=== PATIENT | female | born 1975 | race Caucasian/White ===

== ENCOUNTER 2017-11-16 15:25 | Emergency (ER) | payer MEDICAID, OTHER ==
[~2017-11-16] VITALS: Ht 162.6 cm; Wt 61.2 kg
[~2017-11-16 15:25] MED LIST: CODE1CAP36 PO; CYCL5TAB PO; DRON10CA PO; HYDR-2890 PO; HYDR-757 PO; NAPR-243 PO; TRAM50TA2 PO; ZLP10T PO
[2017-11-16] MEDS ORDERED: fentaNYL INJECTION 100 MCG/2 ML AMP IVP PRN (16:30)
[2017-11-16] MEDS ORDERED: NS IV 1000 ML 1,000 ML IV SCH (16:30)
--- NOTE | 2017-11-16 16:35 | ED Upper Extremity ---
General Chief Complaint: Upper Extremity Stated Complaint: BILAT HAND SWELLING Source: patient, family History of Present Illness Date Seen by Provider: Nov 16, 2017 Time Seen by Provider: 16:30 Initial Comments The patient is a 42-year-old white female. She was sent here from the [facility]. She had arrived there complaining of her left hand swelling and an apparent bite. It was immediately served that both hands were swollen but the right greater than the left and the right exhibited redness warmth and exquisite pain to touch. Her male nursery rn states that she had fallen a few days ago and had complained of wrist pain but not excessively. She is not known to have a fever. The left arm apparently showed a tiny red spot at the distal ulna without surrounding erythema. This may have been a bug bite. I was informed by staff that the she has HIV and hep C and a past history of drug abuse. Onset: yesterday Pain/Injury Location: right wrist, right hand Method of Injury: unknown Allergies and Home Medications Allergies Coded Allergies: No Known Drug Allergies (Unverified , 10/13/12) Home Medications Acet/Butal/Caff/Cod 1 Cap Capsule, 1 EACH PO Q6HR PRN, (Reported) Cyclobenzaprine Hcl 5 Mg Tablet, 1 EACH PO Q8HR PRN PRN for SPASMS Prescribed by: JIM MAHMOOD on 07/05/141754 Dronabinol 10 Mg Capsule, 1 EACH PO BID, (Reported) Elviteg/Cindy/Emtric/Tenofo Ala 1 Each Tablet, 1 PO DAILY, (Reported) Naproxen 500 Mg Tablet, 1 EACH PO TID PRN for PAIN FOR PAIN Prescribed by: JIM MAHMOOD on 07/05/141754 Tramadol Hcl 50 Mg Tablet, 50 MG PO PRN, (Reported) Zolpidem Tartrate 10 Mg Tab, 10 MG PO HS, (Reported) Patient Home Medication List Home Medication List Reviewed: Yes Constitutional: see HPI (pain swelling and redness of right hand) EENTM: no symptoms reported Respiratory: no symptoms reported Cardiovascular: no symptoms reported Musculoskeletal: no symptoms reported Skin: see HPI Psychiatric/Neurological: No Symptoms Reported Past Httmpwd-Bcuxlc-Lbumkr Hx Patient Social History Recent Foreign Travel: No Contact w/Someone Who Travel: No Immunizations Up To Date Tetanus Booster (TDap): Less than 5yrs Date of Influenza Vaccine: Jul 02, 2013 Neurological Neurological Disorders: Headaches /Migraines Psychosocial Behavioral Health Disorders: Anxiety Physical Exam Vital Signs Vital Signs - First Documented 11/16/17 15:35 Temp 98.3 Pulse 70 Resp 16 B/P (MAP) 129/75 (93) Pulse Ox 98 Capillary Refill : General Appearance: moderate distress (out of proportion to the findings) Neck: full range of motion Cardiovascular: normal peripheral pulses, regular rate, rhythm, no edema, no gallop, no JVD, no murmur Respiratory: chest non-tender, lungs clear, normal breath sounds, no respiratory distress, no accessory muscle use Gastrointestinal: normal bowel sounds Skin: tattoos/piercings (heavily tattooed) Lymphatic: no adenopathy (the dorsum of the right hand was red. There was 2+ swelling. It was slightly warm. She complained exquisitely and bitterly of pain to light touch over the dorsum. No lymphatic rays were noted going up the arm) Comments There was 2+ swelling to the dorsum of the right hand. It was red and slightly warm to the touch. The patient complained of exquisite pain to the light touch. No lymphatic rays were noted extending up the arm. Progress/Results/Core Measures Results/Orders Lab Results Laboratory Tests Test 11/16/17 16:40 Range/Units White Blood Count 8.8 4.3-11.0 10^3/uL Red Blood Count 3.98 L 4.35-5.85 10^6/uL Hemoglobin 12.3 11.5-16.0 G/DL Hematocrit 34 L 35-52 % Mean Corpuscular Volume 86 80-99 FL Mean Corpuscular Hemoglobin 31 25-34 PG Mean Corpuscular Hemoglobin Concent 36 32-36 G/DL Red Cell Distribution Width 12.9 10.0-14.5 % Platelet Count 218 130-400 10^3/uL Mean Platelet Volume 9.1 7.4-10.4 FL Neutrophils (%) (Auto) 65 42-75 % Lymphocytes (%) (Auto) 21 12-44 % Monocytes (%) (Auto) 12 0-12 % Eosinophils (%) (Auto) 1 0-10 % Basophils (%) (Auto) 1 0-10 % Neutrophils # (Auto) 5.7 1.8-7.8 X 10^3 Lymphocytes # (Auto) 1.9 1.0-4.0 X 10^3 Monocytes # (Auto) 1.1 H 0.0-1.0 X 10^3 Eosinophils # (Auto) 0.1 0.0-0.3 10^3/uL Basophils # (Auto) 0.0 0.0-0.1 10^3/uL Sodium Level 133 L 135-145 MMOL/L Potassium Level 4.0 3.6-5.0 MMOL/L Chloride Level 102 98-107 MMOL/L Carbon Dioxide Level 21 21-32 MMOL/L Anion Gap 10 5-14 MMOL/L Blood Urea Nitrogen 13 7-18 MG/DL Creatinine 0.77 0.60-1.30 MG/DL Estimat Glomerular Filtration Rate > 60 BUN/Creatinine Ratio 17 Glucose Level 93 70-105 MG/DL Calcium Level 9.2 8.5-10.1 MG/DL Total Bilirubin 0.5 0.1-1.0 MG/DL Aspartate Amino Transf (AST/SGOT) 31 5-34 U/L Alanine Aminotransferase (ALT/SGPT) 33 0-55 U/L Alkaline Phosphatase 57 40-136 U/L Total Protein 7.7 6.4-8.2 GM/DL Albumin 4.2 3.2-4.5 GM/DL My Orders Orders - PURA ZIEGLER MD Cbc With Automated Diff (11/16/17 16:03) Comprehensive Metabolic Panel (11/16/17 16:03) Drug Screen Stat (Urine) (11/16/17 16:03) Hand, Right, 3 Views (11/16/17 16:26) Ns Iv 1000 Ml (Sodium Chloride 0.9%) (11/16/17 16:30) Fentanyl Injection (Sublimaze Injection (11/16/17 16:30) Medications Given in ED Current Medications Medications Dose Ordered Sig/Naomi Route Start Time Stop Time Status Last Admin Dose Admin Fentanyl Citrate 100 mcg Q1H PRN IVP 11/16/17 16:30 11/16/17 16:47 100 MCG Vital Signs/I&O Vital Sign - Last 12Hours 11/16/17 11/16/17 15:35 16:47 Temp 98.3 98.3 Pulse 70 Resp 16 B/P (MAP) 129/75 (93) Pulse Ox 98 Departure Impression Impression: Primary Impression: cellulitis right hand Disposition: ADMITTED INPATIENT Condition: Stable/Unchanged Admissions Decision to Admit Reason: Admit from ER (General) Decision to Admit/Date: Nov 16, 2017 Time/Decision to Admit Time: 17:48 Departure-Patient Inst. Referrals: [facility] (PCP/Family) Primary Care Physician PURA ZIEGLER MD Nov 16, 2017 16:35
[2017-11-16 16:48] LABS: BASOPHILS % (AUTO) 1 % (0-10); EOSINOPHILS # (AUTO) 0.1 10^3/uL (0.0-0.3); EOSINOPHILS % (AUTO) 1 % (0-10); HEMATOCRIT 34 % (35-52); HEMOGLOBIN 12.3 G/DL (11.5-16.0); LYMPHOCYTES # (AUTO) 1.9 X 10^3 (1.0-4.0); LYMPHOCYTES % (AUTO) 21 % (12-44); MEAN CORPUSCULAR HEMOGLOBIN 31 PG (25-34); MEAN CORPUSCULAR HGB CONC 36 G/DL (32-36); MEAN CORPUSCULAR VOLUME 86 FL (80-99); MEAN PLATELET VOLUME 9.1 FL (7.4-10.4); MONOCYTES # (AUTO) 1.1 X 10^3 (0.0-1.0); MONOCYTES % (AUTO) 12 % (0-12); NEUTROPHILS # (AUTO) 5.7 X 10^3 (1.8-7.8); NEUTROPHILS % (AUTO) 65 % (42-75); PLATELET COUNT 218 10^3/uL (130-400); RED BLOOD COUNT 3.98 10^6/uL (4.35-5.85); RED CELL DISTRIBUTION WIDTH 12.9 % (10.0-14.5); WHITE BLOOD COUNT 8.8 10^3/uL (4.3-11.0)
[2017-11-16 17:07] LABS: ALANINE AMINOTRANSFERASE 33 U/L (0-55); ALBUMIN 4.2 GM/DL (3.2-4.5); ALKALINE PHOSPHATASE 57 U/L (40-136); BILIRUBIN,TOTAL 0.5 MG/DL (0.1-1.0); BUN/CREATININE RATIO 17; CALCIUM 9.2 MG/DL (8.5-10.1); CARBON DIOXIDE 21 MMOL/L (21-32); CHLORIDE 102 MMOL/L (98-107); CREATININE SERUM 0.77 MG/DL (0.60-1.30); GFR ESTIMATED > 60; GLUCOSE 93 MG/DL (70-105); SODIUM 133 MMOL/L (135-145); TOTAL PROTEIN 7.7 GM/DL (6.4-8.2)
[2017-11-16] MEDS ORDERED: ELVI1TAB3 PO (17:22)
--- NOTE | 2017-11-16 17:34 | Diagnostic Imaging Report ---
PATIENT HISTORY: Right hand swelling for two days. No known trauma. TECHNIQUE: Three views of the right hand. COMPARISON: None. FINDINGS: No acute fracture or dislocation is seen in the right hand. Alignment appears normal. The joint spaces are preserved. No cortical erosions are seen. There is mild soft tissue edema about the right wrist. No soft tissue gas or radiopaque foreign body is seen. IMPRESSION: No acute osseous abnormality or soft tissue gas is seen in the right hand. Dictated by: Dictated on workstation # [id number]
[2017-11-16] MEDS ORDERED: VANCOMYCIN 1000 MG/VIAL ONE (17:59)
[2017-11-16] MEDS ORDERED: VANCOMYCIN INJECTION 0.1 MG in NS (IVPB) 250 ML IV SCH (18:00)
[2017-11-16] MEDS ORDERED: PIPERACILLIN SODIUM/TAZOBACTAM 4.5 GM in NS (IVPB) 100 ML IV SCH (18:00)
[2017-11-16 18:10] VITALS: BP 122/70
== END 2017-11-16 18:10 | disposition left against medical advice (07) ==
LOC: EDUNIT# 15:25 → ER 15:26
DX: L03.113 Cellulitis of right upper limb (principal); G43.909 Migraine, unspecified, not intractable, without status migrainosus; F41.9 Anxiety disorder, unspecified; B19.20 Unspecified viral hepatitis C without hepatic coma; Z21 Asymptomatic human immunodeficiency virus [HIV] infection status
CPT/HCPCS: 36415; 73130; 80053; 85025; 96361; 96374

== ENCOUNTER 2017-11-19 22:56 | Inpatient (IN) | payer MEDICAID ==
[~2017-11-19] VITALS: Ht 162.6 cm; Wt 64.2 kg
[~2017-11-19 22:56] MED LIST changes: +ELVI1TAB3 PO
--- OUTSIDE RECORDS SUMMARY | 2017-11-19 23:02 | XMS REPORT ---
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 Active 473248097 Problem Generalized anxiety disorder F41.1 Active 73366419 Problem Low back pain M54.5 Active 530874881 Problem Asymptomatic human immunodeficiency virus (HIV) infection status Z21 Active 01052236 Problem GERD (gastroesophageal reflux disease) K21.9 Active 229941983 ALLERGIES No Known Allergies SOCIAL HISTORY Never Assessed PLAN OF CARE Activity Details Follow Up 10/03/16, prn Reason: Pending Test Human Immunodeficiency Virus (HIV-1), Quantitative, Real-time PCR (graph) 92326 Pending Test Metabolic Panel (14), Comprehensive (CMP) 17520 Pending Test CD4/CD8 Ratio Profile 83545 VITAL SIGNS Height 64 in 2017-07-04 Weight 127.5 lbs 2017-07-04 Temperature 96.7 degrees Fahrenheit 2017-07-04 Heart Rate 95 /min 2017-07-04 Respiratory Rate 18 /min 2017-07-04 Oximetry 99 % 2017-07-04 BMI 21.88 kg/m2 2017-07-04 Blood pressure systolic 112 mm Hg 2017-07-04 Blood pressure diastolic 82 mm Hg 2017-07-04 MEDICATIONS Medication Instructions Dosage Frequency Start Date End Date Duration Status Genvoya 150 mg/150 mg/200/mg/10 mg Oral Once a day 1 tablet 24h December, 30 days Active Lexapro 10 MG Orally Once a day 1 tablet 24h Aug, 30 day(s) Active Citalopram Hydrobromide 20 MG Orally Once a day 1 tablet 24h Jul, 30 day(s) Active Imitrex 100 MG Oral 1 (one) Tablet daily prn, max 2/day 1 tablet as needed one time Aug, 30 days Active Motrin 800 MG Oral 1 tid Aug, 0 Active Qoofehstpt-XMBW-Kukanzrl 50-325-40 MG TAKE ONE TABLET BY MOUTH ONCE DAILY NEEDED ; MAY REPEAT ONE TIME IN 4 HOURS 30 Active Zolpidem Tartrate 10 MG Orally at bedtime 1 tablet Nov, 30 Active Multivitamins Oral 1 (one) QD Sep, 0 Active Tramadol HCl 50 Orally every 6 hrs 1 tablet as needed 6h 30 days Active Remeron 30 MG Oral Once a day 1 tablet before bedtime in the evening 24h Sep, 30 days Active Marinol 10 MG Orally Twice a day 1 capsule 12h 14 Aug, 2012 30 Active RESULTS No Results PROCEDURES Procedure Date Ordered Result Body Site T CELL, ABSOLUTE COUNT/RATIO Jul 04, 2017 COMPREHEN METABOLIC PANEL Jul 04, 2017 IMMUNIZATION ADMIN Jul 04, 2017 HIV-1, DNA, QUANT Jul 04, 2017 Billed by outside source Jul 04, 2017 FLU VAC NO PRSV 4 OJRGE A 3 YRS+ Jul 04, 2017 IMMUNIZATIONS Vaccine Route Administration Date Status Influenza Split 3 yrs > (QUAD) IM Intramuscular Jul 04, 2017 Administered MEDICAL (GENERAL) HISTORY Type Description Date Medical History Amphetamine or related acting sympathomimetic abuse, episodic use ; Medical History Backache, unspecified (724.5) ; Medical History Nondependent tobacco use disorder , (Desc:Tobacco use disorder ) ; Medical History Acute bronchitis (Inactive) Medical History Acute upper respiratory infections of other multiple sites ( Inactive) Medical History Rash and other nonspecific skin eruption (Inactive)
--- OUTSIDE RECORDS SUMMARY | 2017-11-19 23:02 | XMS REPORT ---
Author Author GANESH LOTT [facility] Address [address] [place] [address] Care Team Providers Care Fence Gate Assembler Name Role Phone GANESH LOTT Unavailable PROBLEMS Type Condition ICD9-CM Code RXR30-AD Code Onset Dates Condition Status SNOMED Code Problem Asymptomatic human immunodeficiency virus [HIV] infection status Z21 Active 20586726 Problem Mood disorder F39 Active 01398482 Problem Encounter for long-term (current) use of other medications V58.69 Active 824363572 Problem Screening examination for venereal disease V74.5 Active 057314327 Problem Anxiety F41.9 Active 13121322 Problem Asymptomatic human immunodeficiency virus (HIV) infection status V08 Active 46579160 ALLERGIES No Information SOCIAL HISTORY Never Assessed PLAN OF CARE VITAL SIGNS MEDICATIONS Medication Instructions Dosage Frequency Start Date End Date Duration Status Colace 100 MG Orally Once a day 1 capsule as needed 24h Oct, Nov, 30 day(s) Active RESULTS No Results PROCEDURES No Known procedures IMMUNIZATIONS No Known Immunizations
--- OUTSIDE RECORDS SUMMARY | 2017-11-19 23:02 | XMS REPORT ---
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 Z79.891 Active 521931218 Problem Generalized anxiety disorder F41.1 Active 54824797 Problem Low back pain M54.5 Active 449676461 Problem Asymptomatic human immunodeficiency virus (HIV) infection status Z21 Active 13799784 Problem GERD (gastroesophageal reflux disease) K21.9 Active 467767979 ALLERGIES No Information ENCOUNTERS Encounter Location Date Diagnosis [address] [address] Oct, Asymptomatic human immunodeficiency virus (HIV) infection status Z21 [address] [address] Jul, [address] [phone] Jul, Asymptomatic human immunodeficiency virus (HIV) infection status Z21 ; Influenza vaccine needed Z23 ; Moderate episode of recurrent major depressive disorder F33.1 and Wasting syndrome R64 [facility] [address] [place] [phone] Aug, Asymptomatic human immunodeficiency virus (HIV) infection status Z21 ; senior living current use of opiate analgesic Z79.891 ; Generalized anxiety disorder F41.1 ; Low back pain M54.5 ; GERD (gastroesophageal reflux disease) K21.9 and Nicotine dependence, cigarettes, uncomplicated F17.[address] [id number] December, Asymptomatic human immunodeficiency virus (HIV) infection status Z21 ; Low back pain M54.5 ; Smoker F17.200 ; Primary insomnia F51.01 ; Migraine, unspecified, not intractable, without status migrainosus G43.909 and Generalized anxiety disorder F41.1 [facility] [address] [place] [address] Oct, [address] [id number] Sep, Asymptomatic human immunodeficiency virus [HIV] infection status Z21 ; Smoker F17.200 ; GERD (gastroesophageal reflux disease) K21.9 ; Low back pain M54.5 ; Migraine, unspecified, not intractable, without status migrainosus G43.909 and Generalized anxiety disorder F41.[address] [phone] Jun, Needs flu shot Z23 ; Asymptomatic human immunodeficiency virus [HIV] infection status Z21 and Major depressive disorder , single episode, unspecified F32.[address] [id number] Mar, Asymptomatic human immunodeficiency virus (HIV) infection status V08 and Chronic prescription opiate use V58.69 [facility] [address] [phone] Jan, [address] [phone] Sep, Asymptomatic human immunodeficiency virus (HIV) infection status V08 ; Chronic prescription opiate use V58.69 and Headache 784.0 [facility] [address] [place] [address] Sep, Migraine, unspecified without mention of intractable migraine without mention of status migrainosus 346.90 and Insomnia, unspecified [address] [id number] Jun, Human immunodeficiency virus (HIV) disease 042 ; Flu vaccine need V04.81 and Need for pneumococcal vaccination V03.82 [facility] [id number] [place], [place] [phone] May, [facility] [address] [phone] Apr, [facility] [address] [facility] [address] [place], [place] [phone] Apr, [facility] [address] [facility] [address] [place], [place] [phone] December, [facility] [address] [facility] [place] [address] Sep, [facility] [address] [facility] [place] [address] Jul, [facility] [address] [facility] [place] [address] Jun, [facility] [address] [facility] [place] [address] Nov, [facility] [address] [facility] [place] [address] Sep, [facility] [address] [facility] [place] [address] Aug, [facility] [address] [facility] [place] [address] December, [facility] [address] [facility] [place] [address] Sep, IMMUNIZATIONS No Known Immunizations SOCIAL HISTORY Never Assessed REASON FOR VISIT med refill PLAN OF CARE VITAL SIGNS MEDICATIONS Medication Instructions Dosage Frequency Start Date End Date Duration Status Genvoya 150 mg/150 mg/200/mg/10 mg Oral Once a day 1 tablet 24h December, 30 days Active RESULTS No Results PROCEDURES No Known procedures INSTRUCTIONS MEDICATIONS ADMINISTERED No Known Medications MEDICAL (GENERAL) HISTORY Type Description Date Medical [...]
--- OUTSIDE RECORDS SUMMARY | 2017-11-19 23:02 | XMS REPORT ---
Author Meg Sena [facility] e[employer] Address Unknown Phone Unavailable Care Team Providers Care Date Puller Name Role Phone Meg Casas CP Unavailable Allergies, Adverse Reactions, Alerts Substance Reaction Event Type N.K.D.A. Info Not Available Non Drug Allergy Problems Problem Type Condition Code Onset Dates Condition Status Assessment Chronic prescription opiate use V58.69 Active Assessment Asymptomatic human immunodeficiency virus (HIV) infection status V08 Active Medications Medication Code System Code Instructions Start Date End Date Status Dosage Imitrex [facility] [address]-45 100 MG Oral 1 (one) Tablet daily prn, max 2/day Aug 06, 2013 not defined Zolpidem Tartrate [facility] [address]-65 10 MG Orally at bedtime December 08, 2012 1 tablet Tramadol HCl [facility] [address]-23 50 MG Oral 1 four times daily, as needed Oct 21, 2013 1 tablet Multivitamins [facility] [address] 1 Oral 1 (one) QD Sep 20, 2008 qd Marinol [facility] [address]-57 10 MG Oral 1 BID Aug 14, 2012 not defined Imitrex [facility] [address]-64 100 MG Oral 1 (one) Tablet daily prn, max 2/day Aug 06, 2013 1 tablet as needed one time Atripla [facility] [address]-69 600-200-300 MG Oral 1 (one) at bedtime February 10, 2014 1 tablet on an empty stomach Atripla [facility] [address]-37 600-200-300 MG Oral 1 (one) at bedtime February 10, 2014 not defined Klwnsmvucj-GQXB-Kjfsrwss [facility] [address]-63 50-325-40 MG Orally at onset of headace. May repeat in 4hrs if needed Sep 26, 2014 1 tablet as needed Remeron [facility] [address]-91 30 MG Oral 1 qhs Sep 20, 2013 not defined Remeron [facility] [address]-04 30 MG Oral 1 qhs Sep 20, 2013 1 tablet before bedtime in the evening Lotrisone [facility] [address]-27 1-0.05 % External 1 apply to affected areas BID Aug 17, 2010 not defined Multivitamins [facility] [address] Oral 1 (one) QD Sep 20, 2008 not defined Motrin [facility] [address]-56 800 MG Oral 1 tid Aug 12, 2008 not defined Procedures Procedure Coding System Code Date HIV-1, DNA, QUANT CPT-4 43098 March 10, 2015 COMPREHEN METABOLIC PANEL CPT-4 86765 March 10, 2015 T CELL, ABSOLUTE COUNT/RATIO CPT-4 12096 March 10, 2015 VENIPUNCT, ROUTINE* CPT-4 77298 March 10, 2015 Office Visit, Est Pt., Level 3 CPT-4 03941 March 10, 2015 Vital Signs Date/Time: March 10, 2015 Temperature 97.8 F Weight 127.4 lbs Height 64 in Respiratory Rate 16 /min Cardiac Monitoring Heart Rate 80 /min Blood Pressure Diastolic 62 mm Hg Blood Pressure Systolic 100 mm Hg BMI 21.87 Index Results No Known Results Summary Purpose eClinicalWorks Submission
--- OUTSIDE RECORDS SUMMARY | 2017-11-19 23:02 | XMS REPORT ---
Author Debra Lucia Organization [employer] Address Unknown Phone Unavailable Care Team Providers Care Sheet Roller Operator Name Role Phone Debra Hooper CP Unavailable Allergies No Known Allergies Problems Problem Type Condition ICD-9 Code Onset Dates Condition Status Problem Generalized anxiety disorder 300.02 Active Problem Routine general medical examination at health care facility V70.0 Inactive Problem Other, mixed, or unspecified nondependent drug abuse, 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.90 Inactive Problem Migraine, unspecified without mention of intractable migraine without mention of status migrainosus 346.90 Active Problem Other malaise and fatigue 780.79 Inactive Problem Loss of weight 783.21 Inactive Problem Routine gynecological examination V72.31 Inactive Problem Unspecified dental caries 521.00 Inactive Problem Insomnia, unspecified 780.52 Inactive Problem Unspecified vaginitis and vulvovaginitis 616.10 Inactive Problem Need for prophylactic vaccination and inoculation, Influenza V04.81 Inactive Problem Acute upper respiratory infections of other multiple sites 465.8 Inactive Problem Chronic periodontitis, generalized 523.42 Inactive Problem Asymptomatic human immunodeficiency virus (HIV) infection status V08 Active Problem terminal supervisor (current) use of opiate analgesic V58.69 Inactive Problem Depressive disorder, not elsewhere classified 311 Active Problem Lumbago 724.2 Active Problem Need for prophylactic vaccination and inoculation against viral hepatitis V05.3 Inactive Problem Rash and other nonspecific skin eruption 782.1 Inactive Problem Screening examination for venereal disease V74.5 Inactive Problem Screening examination for pulmonary tuberculosis V74.1 Inactive Problem Acute bronchitis 466.0 Inactive Problem Persistent disorder of initiating or maintaining sleep 307.42 Active Problem Anxiety state, unspecified 300.00 Inactive Problem Nondependent tobacco use disorder 305.1 Active Problem Nondependent cocaine abuse, 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.60 Inactive Problem Nondependent amphetamine or related acting sympathomimetic abuse, episodic 305.72 Active Medications No Known Medications Results No Known Results Summary Purpose eClinicalWorks Submission
--- OUTSIDE RECORDS SUMMARY | 2017-11-19 23:02 | XMS REPORT ---
Author FLAKITO Leach [facility] e[employer] Address Unknown Phone Unavailable Care Team Providers Care Conventions Assistant Name Role Phone FLAKITO ALVES CP Unavailable Allergies No Known Allergies Problems Problem Type Condition Code Onset Dates Condition Status Problem Encounter for long-term (current) use of other medications V58.69 Active Problem Screening examination for venereal disease V74.5 Active Problem Asymptomatic human immunodeficiency virus (HIV) infection status V08 Active Medications No Known Medications Results No Known Results Summary Purpose eClinicalWorks Submission
--- OUTSIDE RECORDS SUMMARY | 2017-11-19 23:02 | XMS REPORT ---
Author Meg Sena [facility] eClinicalWorks Address Unknown Phone Unavailable Care Team Providers Care Advisor Consultant Name Role Phone Meg Casas CP Unavailable Allergies, Adverse Reactions, Alerts Substance Reaction Event Type N.K.D.A. Info Not Available Non Drug Allergy Problems Problem Type Condition Code Onset Dates Condition Status Problem Chronic periodontitis, generalized K05.32 Active Problem Generalized anxiety disorder F41.1 Active Problem Anxiety disorder, unspecified F41.9 Active Problem Major depressive disorder, single episode, unspecified F32.9 Active Problem Low back pain M54.5 Active Problem Asymptomatic human immunodeficiency virus [HIV] infection status Z21 Active Problem Smoker F17.200 Active Problem Migraine, unspecified, not intractable, without status migrainosus G43.909 Active Problem Other stimulant abuse, 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 Active Problem Primary insomnia F51.01 Active Assessment Needs flu shot Z23 Active Problem Other, mixed, or unspecified nondependent drug abuse, 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.90 Active Assessment Major depressive disorder, single episode, unspecified F32.9 Active Assessment Asymptomatic human immunodeficiency virus [HIV] infection status Z21 Active Problem Dental caries, unspecified K02.9 Active Problem Cocaine abuse, uncomplicated F14.10 Active Problem Other fatigue R53.83 Active Problem Abnormal weight loss R63.4 Active Problem Insomnia, unspecified G47.00 Active Problem 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 May repeat in 4hrs if needed Sep 26, 2014 1 tablet as needed Motrin [facility] [address]-81 800 MG Oral 1 tid Aug 12, 2008 not defined Marinol [facility] [address]-13 10 MG Oral 1 BID Aug 14, 2012 not defined Atripla [facility] [address]-82 600-200-300 MG Oral 1 (one) at bedtime February 10, 2014 not defined Atripla [facility] [address]-35 600-200-300 MG Oral 1 (one) at bedtime February 10, 2014 1 tablet on an empty stomach Multivitamins [facility] [address]94 Oral 1 (one) QD Sep 20, 2008 not defined Remeron [facility] [address]-18 30 MG Oral 1 qhs Sep 20, 2013 not defined Imitrex [facility] [address]-48 100 MG Oral 1 (one) Tablet daily prn, max 2/day Aug 06, 2013 1 tablet as needed one time Remeron [facility] [address]-94 30 MG Oral 1 qhs Sep 20, 2013 1 tablet before bedtime in the evening Imitrex [facility] [address]-31 100 MG Oral 1 (one) Tablet daily prn, max 2/day Aug 06, 2013 not defined Lotrisone [facility] [address]-21 1-0.05 % External 1 apply to affected areas BID Aug 17, 2010 not defined Multivitamins [facility] [address]64 1 Oral 1 (one) QD Sep 20, 2008 qd Tramadol HCl [facility] [address]-38 50 MG Oral 1 four times daily, as needed Oct 21, 2013 1 tablet Celexa [facility] [address]-20 20 MG Orally Once a day Jun 30, 2015 1 tablet Procedures Procedure Coding System Code Date IMMUNIZATION ADMIN CPT-4 82499 Jun 30, 2015 Office Visit, Est Pt., Level 3 CPT-4 28224 Jun 30, 2015 Flu vaccine no Preserv 3 and > CPT-4 06413 Jun 30, 2015 Vital Signs Date/Time: Jun 30, 2015 Temperature 97.5 F Weight 125.3 lbs Height 64 in Respiratory Rate 20 /min Cardiac Monitoring Heart Rate 72 /min Blood Pressure Diastolic 60 mm Hg Blood Pressure Systolic 96 mm Hg BMI 21.51 Index Results No Known Results Immunizations Vaccine Administration Date Influenza, seasonal, injectable, preservative free, 3 yrs and above Jun 30, 2015 Summary Purpose eClinicalWorks Submission
--- OUTSIDE RECORDS SUMMARY | 2017-11-19 23:02 | XMS REPORT ---
Author Author Debra Hooper [facility] Address [address], [place] [id number] Care Team Providers Care Psychiatry Teacher Name Role Phone Debra Hooper Unavailable PROBLEMS Type Condition ICD9-CM Code [id number] Code Onset Dates Condition Status SNOMED Code Assessment Asymptomatic human immunodeficiency virus (HIV) infection status Z21 Aug, Active 88269236 Problem retirement current use of opiate analgesic Z79.891 Active 359555362 Problem Asymptomatic human immunodeficiency virus (HIV) infection status Z21 Active 31958880 Problem Generalized anxiety disorder F41.1 Active 49772634 Problem Nicotine dependence, cigarettes, uncomplicated F17.210 Active 22833067 Problem GERD (gastroesophageal reflux disease) K21.9 Active 453524932 Problem Low back pain M54.5 Active 096650964 ALLERGIES Unknown Allergies SOCIAL HISTORY No smoking Hx information available PLAN OF CARE Activity Details Pending Test Human Immunodeficiency Virus (HIV-1), Quantitative, Real-time PCR (graph) 33788 Pending Test Metabolic Panel (14), Comprehensive (CMP) 40459 Pending Test CD4/CD8 Ratio Profile 72525 Pending Test Urine Pain/Tox Panel Future/Pending Procedure Bacon De Rinder 3-10 Min in ASX Smoker 3 Months,Reason: VITAL SIGNS Height 64 in 2016-08-16 Weight 118.6 lbs 2016-08-16 Temperature 98.1 degrees Fahrenheit 2016-08-16 Heart Rate 92 /min 2016-08-16 Respiratory Rate 16 /min 2016-08-16 BMI 20.36 kg/m2 2016-08-16 Blood pressure systolic 116 mm Hg 2016-08-16 Blood pressure diastolic 78 mm Hg 2016-08-16 MEDICATIONS Medication Instructions Dosage Frequency Start Date End Date Duration Status Tramadol HCl 50 Orally every 6 hrs 1 tablet as needed 6h 30 days Active Marinol 10 MG Orally Twice a day 1 capsule 12h 14 Aug, 2012 30 Active Genvoya 150 mg/150 mg/200/mg/10 mg Oral Once a day 1 tablet 24h 13 Dec, 2015 30 days Active Multivitamins Oral 1 (one) QD Sep, 0 Active Lexapro 10 MG Orally Once a day 1 tablet 24h Aug, 30 day(s) Active Remeron 30 MG Oral Once a day 1 tablet before bedtime in the evening 24h Sep, 30 days Active Zolpidem Tartrate 10 MG Orally at bedtime 1 tablet Nov, 30 Active Imitrex 100 MG Oral 1 (one) Tablet daily prn, max 2/day 1 tablet as needed one time Aug, 30 days Active Syzgtlkukd-XQSM-Ujxfuswf 50-325-40 MG TAKE ONE TABLET BY MOUTH ONCE DAILY NEEDED ; MAY REPEAT ONE TIME IN 4 HOURS 30 Active Motrin 800 MG Oral 1 tid Aug, 0 Active RESULTS Name Result Date Reference Range Human Immunodeficiency Virus (HIV-1), Quantitative, Real-time PCR (graph) 50017 2016-08-16 HIV-1 RNA by PCR <20 log10 HIV-1 RNA TNP Metabolic Panel (14), Comprehensive (CMP) 24299 2016-08-16 Glucose, Serum 84 65-99 BUN 14 6-20 Creatinine, Serum 0.82 0.57-1.00 eGFR If NonAfricn Am 90 >59 eGFR If Africn Am 104 >59 BUN/Creatinine Ratio 17 8-20 Sodium, Serum 138 134-144 Potassium, Serum 5.4 3.5-5.2 Chloride, Serum 97 96-106 Carbon Dioxide, Total 22 18-29 Calcium, Serum 10.0 8.7-10.2 Protein, Total, Serum 8.5 6.0-8.5 Albumin, Serum 4.8 3.5-5.5 Globulin, Total 3.7 1.5-4.5 A/G Ratio 1.3 1.1-2.5 Bilirubin, Total 0.5 0.0-1.2 Alkaline Phosphatase, S 52 39-117 AST (SGOT) 37 0-40 ALT (SGPT) 28 0-32 CD4/CD8 Ratio Profile 19897 2016-08-16 Absolute CD 4 Jolon 707 808-0121 % CD 4 Pos. Lymph. 43.3 30.8-58.5 Abs. CD 8 Suppressor 646 109-897 % CD 8 Pos. Lymph. 38.0 12.0-35.5 CD4/CD8 Ratio 1.14 0.92-3.72 WBC 5.6 3.4-10.8 RBC 4.17 3.77-5.28 Hemoglobin 13.2 11.1-15.9 Hematocrit 39.5 34.0-46.6 MCV 95 79-97 MCH 31.7 26.6-33.0 MCHC 33.4 31.5-35.7 RDW 14.2 12.3-15.4 Platelets 311 150-379 Neutrophils 58 Lymphs 31 Monocytes 9 Eos 1 Basos 1 Immature Cells TABLE WORKER PACKAGER Neutrophils (Absolute) 3.3 1.4-7.0 Lymphs (Absolute) 1.7 0.7-3.1 Monocytes(Absolute) 0.5 0.1-0.9 Eos (Absolute) 0.0 0.0-0.4 Baso (Absolute) 0.0 0.0-0.2 Immature Granulocytes 0 Immature Grans (Abs) 0.0 0.0-0.1 NRBC TABLE WORKER PACKAGER Hematology Comments: TABLE WORKER PACKAGER Urine Pain/Tox Panel 2016-08-16 PROCEDURES Procedure Date Ordered Related Diagnosis Body Site COMPREHEN METABOLIC PANEL Aug 16, 2016 T CELL, ABSOLUTE COUNT/RATIO Aug 16, 2016 Billed by outside source Aug 16, 2016 HIV-1, DNA, QUANT Aug 16, 2016 Office Visit, Est Pt., Level 4 Aug 16, 2016 [place] 3-10 min Smoking/Tobacco Cessation Aug 16, 2016 IMMUNIZATIONS No Known Immunizations
--- OUTSIDE RECORDS SUMMARY | 2017-11-19 23:02 | XMS REPORT ---
Author GANESH Barbosa [facility] Address [address] [place] [address] Care Team Providers Care Sales Promotion Coordinator Name Role Phone GANESH LOTT Unavailable PROBLEMS Type Condition ICD9-CM Code [id number] Code Onset Dates Condition Status SNOMED Code Problem Mood disorder F39 Active 34884543 Problem Anxiety F41.9 Active 78252188 Problem Screening examination for venereal disease V74.5 Active 796511469 Problem Asymptomatic human immunodeficiency virus (HIV) infection status V08 Active 74409443 Problem Encounter for long-term (current) use of other medications V58.69 Active 478872797 ALLERGIES No Information SOCIAL HISTORY Never Assessed PLAN OF CARE VITAL SIGNS Height 64 in 2016-10-15 Weight 135 lbs 2016-10-15 Heart Rate 90 bpm 2016-10-15 Respiratory Rate 16 2016-10-15 BMI 23.17 kg/m2 2016-10-15 Blood pressure systolic 100 mmHg 2016-10-15 Blood pressure diastolic 64 mmHg 2016-10-15 MEDICATIONS Unknown Medications RESULTS No Results PROCEDURES No Known procedures IMMUNIZATIONS No Known Immunizations
--- OUTSIDE RECORDS SUMMARY | 2017-11-19 23:02 | XMS REPORT ---
Author FLAKITO Leach [facility] eClinicalWorks Address Unknown Phone Unavailable Care Team Providers Care Consultant Internship Name Role Phone FLAKITO ALVES CP Unavailable [...]
--- OUTSIDE RECORDS SUMMARY | 2017-11-19 23:02 | XMS REPORT ---
Author FLAKITO Leach [facility] eClinicalWorks Address Unknown Phone Unavailable Care Team Providers Care Corrections Lieutenant Name Role Phone FLAKITO ALVES CP Unavailable [...]
--- OUTSIDE RECORDS SUMMARY | 2017-11-19 23:03 | XMS REPORT ---
Author Author GANESH LOTT Organization [facility] Address [address] [place] [address] Care Team Providers Care Coal Conveyor Operator Name Role Phone GANESH LOTT Unavailable PROBLEMS Type Condition ICD9-CM Code UAH61-FT Code Onset Dates Condition Status SNOMED Code Problem Mood disorder F39 Active 13669257 Problem Anxiety F41.9 Active 39970846 Problem Screening examination for venereal disease V74.5 Active 756029860 Problem Asymptomatic human immunodeficiency virus (HIV) infection status V08 Active 49425493 Problem Encounter for long-term (current) use of other medications V58.69 Active 141536839 ALLERGIES Unknown Allergies SOCIAL HISTORY No smoking Hx information available PLAN OF CARE VITAL SIGNS MEDICATIONS Medication Instructions Dosage Frequency Start Date End Date Duration Status Genvoya 026-511-407-10 MG Orally Once a day as directed 24h Sep, Active Mirtazapine 30 MG Orally Once a day 1 tablet at bedtime 24h Sep, Active Lexapro 10 mg Orally Once a day 1 tablet 24h Sep, Active Imitrex 100 MG Orally Twice a day 1 tablet as needed 12h Sep, Active RESULTS No Results PROCEDURES No Known procedures IMMUNIZATIONS No Known Immunizations
--- OUTSIDE RECORDS SUMMARY | 2017-11-19 23:03 | XMS REPORT ---
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 May repeat in 4hrs if needed Sep 26, 2014 Active 1 tablet as needed Results No Known Results Summary Purpose eClinicalWorks Submission
--- OUTSIDE RECORDS SUMMARY | 2017-11-19 23:03 | XMS REPORT ---
Author Debra Lucia [facility] eClinicalWorks Address Unknown Phone Unavailable Care Team Providers Care In Home Aide Name Role Phone Debra Hooper CP Unavailable Allergies No Known Allergies Problems Problem Type Condition Code Onset Dates Condition Status Problem Chronic periodontitis, generalized K05.32 Active Assessment Generalized anxiety disorder F41.1 Active Problem Anxiety disorder, unspecified F41.9 Active Assessment Migraine, unspecified, not intractable, without status migrainosus G43.909 Active Problem Generalized anxiety disorder F41.1 Active Problem Smoker F17.200 Active Problem Migraine, unspecified, not intractable, without status migrainosus G43.909 Active Problem GERD (gastroesophageal reflux disease) K21.9 Active Problem Asymptomatic human immunodeficiency virus [HIV] infection status Z21 Active Assessment Smoker F17.200 Active Assessment GERD (gastroesophageal reflux disease) K21.9 Active Problem Encounter for gynecological examination Z01.419 Active Assessment Low back pain M54.5 Active Problem Other stimulant abuse, 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 Active Problem Primary insomnia F51.01 Active Problem Major depressive disorder, single episode, unspecified F32.9 Active Problem Low back pain M54.5 Active Problem Other fatigue R53.83 Active Problem Insomnia, unspecified G47.00 Active Assessment Asymptomatic human immunodeficiency virus [HIV] infection status Z21 Active Problem Other, mixed, or unspecified nondependent drug abuse, 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.90 Active Problem Abnormal weight loss R63.4 Active Problem group home (current) use of opiate analgesic Z79.891 Active Problem Dental caries, unspecified K02.9 Active Problem Cocaine abuse, uncomplicated F14.10 Active Medications Medication Code System Code Instructions Start Date End Date Status Dosage [facility] Omeprazole [facility] [address]-90 20 MG Orally Once a day Sep 29, 2015 1 tablet Motrin [facility] [address]-04 800 MG Oral 1 tid Aug 12, 2008 not defined Marinol [facility] [address]-18 10 MG Oral 1 BID Aug 14, 2012 not defined Multivitamins NDC 22767-11789 1 Oral 1 (one) QD Sep 20, 2008 qd Multivitamins [facility] 67592-[address] Oral 1 (one) QD Sep 20, 2008 not defined Atripla [facility] [address]-50 600-200-300 MG Oral 1 (one) at bedtime February 10, 2014 not defined Lotrisone [facility] [address]-36 1-0.05 % External 1 apply to affected areas BID Aug 17, 2010 not defined Tramadol HCl [facility] 51710342346 50 TAKE ONE TABLET BY MOUTH FOUR TIMES A DAY NEEDED FOR PAIN Celexa [facility] [address]-93 20 MG Orally Once a day Jun 30, 2015 1 tablet Remeron [facility] [address]-44 30 MG Oral 1 qhs Sep 20, 2013 1 tablet before bedtime in the evening Remeron [facility] [address]-52 30 MG Oral 1 qhs Sep 20, 2013 not defined Imitrex [facility] [address]-06 100 MG Oral 1 (one) Tablet daily prn, max 2/day Aug 06, 2013 1 tablet as needed one time Imitrex [facility] [address]-28 100 MG Oral 1 (one) Tablet daily prn, max 2/day Aug 06, 2013 not defined Kypoefvxin-AVQO-Hvrooflr [facility] [address]-59 50-325-40 MG Orally at onset of headace. May repeat in 4hrs if needed Sep 26, 2014 1 tablet as needed Zolpidem Tartrate [facility] [address]-03 10 MG Orally at bedtime December 08, 2012 1 tablet Atripla [facility] [address]-94 600-200-300 MG Oral 1 (one) at bedtime February 10, 2014 1 tablet on an empty stomach Procedures Procedure Coding System Code Date T CELL, ABSOLUTE COUNT/RATIO CPT-4 31111 Sep 29, 2015 COMPREHEN METABOLIC PANEL CPT-4 69933 Sep 29, 2015 HIV-1, DNA, AMP PROBE CPT-4 37729 Sep 29, 2015 [place] 3-10 Min in ASX Smoker CPT-4 G0436 Sep 29, 2015 Office Visit, Est Pt., Level 3 CPT-4 38093 Sep 29, 2015 Vital Signs Date/Time: Sep 29, 2015 Temperature 99.1 F Weight 123.3 lbs Height 64 in Respiratory Rate 16 /min Cardiac Monitoring Heart Rate 92 /min Blood Pressure Diastolic 70 mm Hg Blood Pressure Systolic 100 mm Hg BMI 21.16 Index Results Name Result Date Reference Range Unit Abnormality Flag CD4/CD8 Ratio Profile 47069 ----Monocytes(Absolute) 0.5 21929637 0.1-0.9 x10E3/uL ----Eos (Absolute) 0.1 17358290 0.0-0.4 x10E3/uL ----Baso (Absolute) 0.1 14462165 0.0-0.2 x10E3/uL ----Immature Granulocytes 0 20150929 % ----Immature Grans (Abs) 0.0 64874881 0.0-0.1 x10E3/uL ----NRBC AUTOMOTIVE SERVICE CONSULTANT [id number] ----Hematology Comments: AUTOMOTIVE SERVICE CONSULTANT [id number] ----Immature Cells AUTOMOTIVE SERVICE CONSULTANT [id number] ----Neutrophils (Absolute) 2.8 64211461 1.4-7.0 x10E3/uL ----Lymphs (Absolute) 2.0 91854641 0.7-3.1 x10E3/uL ----MCH 30.4 52703345 26.6-33.0 pg ----MCV 91 11464989 79-97 fL ----Abs. CD 8 Suppressor 836 98642387 109-897 /uL ----Basos 1 39286631 % ----% CD 8 Pos. Lymph. 41.8 49102498 12.0-35.5 % H ----Eos 2 26381000 % ----CD4/CD8 Ratio 0.90 69324196 0.92-3.72 L ----Monocytes 10 54841029 % ----WBC 5.5 02355707 3.4-10.8 x10E3/uL ----Lymphs 37 52067308 % ----RBC 4.28 79944362 3.77-5.28 x10E6/uL ----Neutrophils 50 75817047 % ----Hemoglobin 13.0 99710670 11.1-15.9 g/dL ----Platelets 234 60891288 150-379 x10E3/uL ----RDW 13.8 55729965 12.3-15.4 % ----Hematocrit 38.9 28646158 34.0-46.6 % ----Absolute CD 4 [place] 752 50132766 359-1519 /uL ----MCHC 33.4 25985103 31.5-35.7 g/dL ----% CD 4 Pos. Lymph. 37.6 13756773 30.8-58.5 % Human Immunodeficiency Virus 1 (HIV-1) Qualitative, RNA ----HIV-1 RNA Qualitative Negative 20150929 Negative Metabolic Panel (14), Comprehensive ([facility]) 68145 ----Sodium, Serum 138 54563832 134-144 mmol/L ----BUN/Creatinine Ratio 19 63221224 8-20 ----Chloride, Serum 100 90117026 97-108 mmol/L ----Potassium, Serum 4.3 15277414 3.5-5.2 mmol/L ----Calcium, Serum 8.9 12654701 8.7-10.2 mg/dL ----Protein, Total, Serum 6.9 67252695 6.0-8.5 g/dL ----Carbon Dioxide, Total 23 15724982 18-29 mmol/L ----A/G Ratio 1.6 90899444 1.1-2.5 ----eGFR If NonAfricn Am 84 42240446 >59 mL/min/1.73 ----Bilirubin, Total <0.2 15684398 0.0-1.2 mg/dL ----eGFR If Africn Am 96 35102972 >59 mL/min/1.73 ----BUN 17 17502789 6-20 mg/dL ----Albumin, Serum 4.2 16668792 3.5-5.5 g/dL ----Globulin, Total 2.7 92723041 1.5-4.5 g/dL ----Creatinine, Serum 0.88 69243906 0.57-1.00 mg/dL ----ALT (SGPT) 26 71595669 0-32 IU/L ----Glucose, Serum 75 48575213 65-99 mg/dL ----Alkaline Phosphatase, S 53 87060537 39-117 IU/L ----AST (SGOT) 22 70442008 0-40 IU/L Summary Purpose eClinicalWorks Submission
--- OUTSIDE RECORDS SUMMARY | 2017-11-19 23:03 | XMS REPORT ---
Author Debra Lucia [facility] eClinicalWorks Address Unknown Phone Unavailable Care Team Providers Care Senior Program Planner Name Role Phone Debra Hooper CP Unavailable Allergies, Adverse Reactions, Alerts Substance Reaction Event Type N.K.D.A. 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 V58.69 Inactive [...] Date End Date Status Dosage Zolpidem Tartrate [facility] [address]-88 10 MG Oral 1 (one) Tablet at bedtime December 08, 2012 called to pharmacy 12-08-12 Motrin [facility] [address]-80 800 MG Oral 1 tid Aug 12, 2008 not defined Atripla [facility] [address]-23 600-200-300 MG Oral 1 (one) at bedtime February 10, 2014 not defined Marinol [facility] [address]-41 10 MG Oral 1 BID Aug 14, 2012 not defined Lotrisone [facility] [address]-04 1-0.05 % External 1 apply to affected areas BID Aug 17, 2010 not defined Remeron [facility] [address]-99 30 MG Oral 1 qhs Sep 20, 2013 not defined Multivitamins [facility] [address]26[address] Oral 1 (one) QD Sep 20, 2008 not defined Tramadol HCl [facility] [address]-75 50 MG Oral 1 four times daily, as needed Oct 21, 2013 1 tablet Imitrex [facility] [address]-52 100 MG Oral 1 (one) Tablet daily prn, max 2/day Aug 06, 2013 not defined Procedures Procedure Coding System Code Date COMPREHEN METABOLIC PANEL CPT-4 32995 Jul 01, 2014 PNEUMOCOCCAL VACC 13 JORGE A IM CPT-4 11134 Jul 01, 2014 T CELL, ABSOLUTE COUNT/RATIO CPT-4 40254 Jul 01, 2014 IMMUNIZATION ADMIN, EACH ADD CPT-4 15886 Jul 01, 2014 IMMUNIZATION ADMIN CPT-4 90749 Jul 01, 2014 Venipuncture CPT-4 70742 Jul 01, 2014 Office Visit, Est Pt., Level 3 CPT-4 64741 Jul 01, 2014 Influenza (split), 3 yrs and above CPT-4 40794 Jul 01, 2014 COMPLETE CBC W/AUTO DIFF WBC IH CPT-4 02520 Jul 01, 2014 Vital Signs Date/Time: Jul 01, 2014 Blood Pressure Systolic 104 mm Hg Temperature 98.2 F Weight 119.8 lbs Respiratory Rate 16 /min Cardiac Monitoring Heart Rate 68 /min Blood Pressure Diastolic 82 mm Hg Results No Known Results Immunizations Vaccine Administration Date Flu vaccine no Preserv 3 and > Jul 01, 2014 Pneumococcal conjugate PCV 13 Jul 01, 2014 Summary Purpose eClinicalWorks Submission
--- OUTSIDE RECORDS SUMMARY | 2017-11-19 23:04 | XMS REPORT ---
Author FLAKITO Leach [facility] eClinicalWorks Address Unknown Phone Unavailable Care Team Providers Care Furniture Assembly Supervisor Name Role Phone FLAKITO ALVES CP Unavailable [...]
--- OUTSIDE RECORDS SUMMARY | 2017-11-19 23:04 | XMS REPORT ---
Author Debra Lucia [facility] eClinicalWorks Address Unknown Phone Unavailable Care Team Providers Care Batch Tank Controller Name Role Phone Debra Hooper CP Unavailable Allergies No Known Allergies Problems Problem Type Condition ICD-9 Code Onset Dates Condition Status Assessment Headache 784.0 Active Assessment Chronic prescription opiate use V58.69 Active Assessment Asymptomatic human immunodeficiency virus (HIV) infection status V08 Active Problem Generalized anxiety disorder 300.02 Active [...] virus (HIV) infection status V08 Active Problem [facility] (current) use of opiate analgesic V58.69 Inactive [...] Instructions Start Date End Date Status Dosage Remeron [facility] [address]-08 30 MG Oral 1 qhs Sep 20, 2013 1 tablet before bedtime in the evening Marinol [facility] [address]-66 10 MG Oral 1 BID Aug 14, 2012 not defined Atripla [facility] [address]-19 600-200-300 MG Oral 1 (one) at bedtime February 10, 2014 1 tablet on an empty stomach Multivitamins [facility] 92677-[address]65 Oral 1 (one) QD Sep 20, 2008 not defined Lotrisone [facility] [address]-45 1-0.05 % External 1 apply to affected areas BID Aug 17, 2010 not defined Multivitamins [facility] [address]9553-39486 1 Oral 1 (one) QD Sep 20, 2008 qd Scsvpugbig-MRLB-Wwzvxybj [facility] [address]-47 50-325-40 MG Orally at onset of headace. May repeat in 4hrs if needed Sep 26, 2014 1 tablet as needed Remeron [facility] [address]-20 30 MG Oral 1 qhs Sep 20, 2013 not defined Tramadol HCl [facility] [address]-57 50 MG Oral 1 four times daily, as needed Oct 21, 2013 1 tablet Atripla [facility] [address]-38 600-200-300 MG Oral 1 (one) at bedtime February 10, 2014 not defined Zolpidem Tartrate [facility] [address]-49 10 MG Orally at bedtime December 08, 2012 1 tablet Imitrex [facility] [address]-72 100 MG Oral 1 (one) Tablet daily prn, max 2/day Aug 06, 2013 1 tablet as needed one time Imitrex [facility] [address]-10 100 MG Oral 1 (one) Tablet daily prn, max 2/day Aug 06, 2013 not defined Motrin [facility] [address]-76 800 MG Oral 1 tid Aug 12, 2008 not defined Procedures Procedure Coding System Code Date T CELL, ABSOLUTE COUNT/RATIO CPT-4 23983 Sep 30, 2014 VENIPUNCT, ROUTINE* CPT-4 75666 Sep 30, 2014 COMPREHEN METABOLIC PANEL CPT-4 65567 Sep 30, 2014 SMEAR, WET MOUNT, SALINE/INK CPT-4 00851 Sep 30, 2014 CYTOPATH, C/V, THIN LAYER CPT-4 92683 Sep 30, 2014 HPV LOW-RISK TYPES CPT-4 75957 Sep 30, 2014 BLOOD SEROLOGY, QUALITATIVE CPT-4 86260 Sep 30, 2014 LIPID PANEL SO CPT-4 81573 Sep 30, 2014 N.GONORRHOEAE, DNA, AMP PROB CPT-4 07813 Sep 30, 2014 CHYLMD TRACH, DNA, AMP PROBE CPT-4 77814 Sep 30, 2014 Vital Signs Date/Time: Sep 30, 2014 Blood Pressure Systolic 122 mm Hg Temperature 98 F Weight 121.8 lbs Respiratory Rate 24 /min Cardiac Monitoring Heart Rate 88 /min Blood Pressure Diastolic 90 mm Hg Results No Known Results Summary Purpose eClinicalWorks Submission
--- OUTSIDE RECORDS SUMMARY | 2017-11-19 23:04 | XMS REPORT ---
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 Name Role Phone Meg Casas Unavailable PROBLEMS Type Condition ICD9-CM Code [id number] Code Onset Dates Condition Status SNOMED Code Problem Nicotine dependence, cigarettes, uncomplicated F17.210 Active 28115093 Problem Moderate episode of recurrent major depressive disorder F33.1 Active 517570098 Problem penitentiary current use of opiate analgesic Z79.891 Active 853488833 Problem Generalized anxiety disorder F41.1 Active 46610700 Problem Low back pain M54.5 Active 887653542 Problem Asymptomatic human immunodeficiency virus (HIV) infection status Z21 Active 59491957 Problem GERD (gastroesophageal reflux disease) K21.9 Active 714858776 ALLERGIES No Information SOCIAL HISTORY Never Assessed PLAN OF CARE VITAL SIGNS MEDICATIONS Unknown Medications RESULTS No Results PROCEDURES No Known procedures IMMUNIZATIONS No Known Immunizations MEDICAL (GENERAL) HISTORY Type Description Date Medical [...]
--- OUTSIDE RECORDS SUMMARY | 2017-11-19 23:04 | XMS REPORT ---
Author Debra Lucia Organization eClinicalWorks Address Unknown Phone Unavailable Care Team Providers Care Steeple Jack Name Role Phone Debra Hooper CP Unavailable Allergies No Known Allergies Problems Problem Type Condition Code Onset Dates Condition Status Problem Generalized anxiety disorder F41.1 Active Problem Smoker F17.200 Active Problem Migraine, unspecified, not intractable, without status migrainosus G43.909 Active Problem GERD (gastroesophageal reflux disease) K21.9 Active Problem Asymptomatic human immunodeficiency virus [HIV] infection status Z21 Active Problem Encounter for gynecological examination Z01.419 Active Problem Other stimulant abuse, 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 Active Problem Primary insomnia F51.01 Active Problem Major depressive disorder, single episode, unspecified F32.9 Active Problem Low back pain M54.5 Active Problem Other fatigue R53.83 Active Problem Insomnia, unspecified G47.00 Active Problem Other, mixed, or unspecified nondependent drug abuse, 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.90 Active Problem Abnormal weight loss R63.4 Active Problem retirement (current) use of opiate analgesic Z79.891 Active Problem Dental caries, unspecified K02.9 Active Problem Chronic periodontitis, generalized K05.32 Active Problem Cocaine abuse, uncomplicated F14.10 Active Problem Anxiety disorder, unspecified F41.9 Active Medications No Known Medications Results No Known Results Summary Purpose eClinicalWorks Submission
--- NOTE | 2017-11-19 23:42 | ED Upper Extremity ---
General Stated Complaint: R HAND SWELLING Source: patient, other Exam Limitations: no limitations History of Present Illness Date Seen by Provider: Nov 19, 2017 Time Seen by Provider: 23:27 Initial Comments Patient presents to the ER by private conveyance with a chief complaint that she was bit on her left hand by a spider about 2 or 3 days ago but then she started developing a lot of swelling in her right hand. She has a small puncture zheng wound on the medial portion of her left palm however her right hand is the one that is swollen and painful. She is not having any nausea or fever but she says she does have some chills sometimes. She has a history of HIV but she says her CD4 count was never gone below 400. She's never had AIDS and she is followed by a practitioner and [facility] in [place], [place]. She says she missed her last appointment and her next appointment will be next month. She says she was seen for his hand in this ER last night and they did an x-ray and told her that they wanted a lot of her but she said she had things to do so she left without being completely worked up nor did she have any antibiotics given. She does not feel that this gotten any worse but it did not get any better. Patient states she's been told many times to find a local primary care provider but she has never done that and just chooses to follow up every other month at [facility] in [place]. Allergies and Home Medications Allergies Coded Allergies: No Known Drug Allergies (Unverified , 10/13/12) Home Medications Acet/Butal/Caff/Cod 1 Cap Capsule, 1 EACH PO Q6HR PRN, (Reported) Cyclobenzaprine Hcl 5 Mg Tablet, 1 EACH PO Q8HR PRN PRN for SPASMS Prescribed by: JIM MAHMOOD on 07/05/141754 Dronabinol 10 Mg Capsule, 1 EACH PO BID, (Reported) Elviteg/Cindy/Emtric/Tenofo Ala 1 Each Tablet, 1 PO DAILY, (Reported) Naproxen 500 Mg Tablet, 1 EACH PO TID PRN for PAIN FOR PAIN Prescribed by: JIM MAHMOOD on 07/05/141754 Tramadol Hcl 50 Mg Tablet, 50 MG PO PRN, (Reported) Zolpidem Tartrate 10 Mg Tab, 10 MG PO HS, (Reported) Patient Home Medication List Home Medication List Reviewed: Yes Constitutional: chills, No diaphoresis, No fever, No malaise EENTM: No ear discharge, No ear pain Respiratory: No cough, No short of breath Cardiovascular: see HPI, No chest pain, edema Gastrointestinal: No abdominal pain, No constipation, No diarrhea, No nausea Genitourinary: No discharge, No dysuria : No Musculoskeletal: No back pain, No joint pain Skin: see HPI Past Wgpvedq-Zzogmg-Gqhtmu Hx Patient Social History Recreational Drug Use: Yes Smoking Status: Current Everyday Smoker Type Used: Cigarettes Recent Foreign Travel: No Contact w/Someone Who Travel: No Immunizations Up To Date Tetanus Booster (TDap): Less than 5yrs Date of Influenza Vaccine: Jul 02, 2013 Surgeries History of Surgeries: Yes ("UNTWISTED A TUBE") Respiratory History of Respiratory Disorde: No Cardiovascular History of Cardiac Disorders: No Neurological History of Neurological Disord: Yes Neurological Disorders: Headaches /Migraines Gastrointestinal History of Gastrointestinal Di: No Musculoskeletal History of Musculoskeletal Dis: No Endocrine History of Endocrine Disorders: No HEENT History of HEENT Disorders: No Cancer History of Cancer: No (HIV positive) Psychosocial History of Psychiatric Problem: Yes Behavioral Health Disorders: Anxiety Physical Exam Vital Signs Vital Signs - First Documented 11/19/17 23:28 Temp 96.2 Pulse 116 Resp 20 B/P (MAP) 110/68 (82) Pulse Ox 100 O2 Delivery Room Air Capillary Refill : General Appearance: WD/WN, no apparent distress HEENT: PERRL/EOMI, pharynx normal Neck: non-tender, normal inspection Cardiovascular: normal peripheral pulses, regular rate, rhythm Respiratory: chest non-tender, lungs clear, no respiratory distress, no accessory muscle use Gastrointestinal: non tender, soft Elbow/Forearm: normal inspection, non-tender, no evidence of injury, normal ROM , Bilateral Wrist: Yes swelling (right, erythematous and tender to palpation without any red streaks noted.) Hand: soft tissue tenderness, swelling (erythematous without red streaks noted. Tender to palpation.) Neurologic/Tendon: normal sensation, normal motor functions, normal tendon functions, responds to pain, no evidence tendon injury Neurologic/Psychiatric: alert, oriented x 3 Skin: normal color, warm/dry Progress/Results/Core Measures Results/Orders Lab Results Laboratory Tests Test 11/19/17 23:55 11/20/17 00:30 Range/Units White Blood Count 10.0 4.3-11.0 10^3/uL Red Blood Count 3.64 L 4.35-5.85 10^6/uL Hemoglobin 11.3 L 11.5-16.0 G/DL Hematocrit 34 L 35-52 % Mean Corpuscular Volume 92 80-99 FL Mean Corpuscular Hemoglobin 31 25-34 PG Mean Corpuscular Hemoglobin Concent 34 32-36 G/DL Red Cell Distribution Width 13.1 10.0-14.5 % Platelet Count 245 130-400 10^3/uL Mean Platelet Volume 9.6 7.4-10.4 FL Neutrophils (%) (Auto) 77 H 42-75 % Lymphocytes (%) (Auto) 14 12-44 % Monocytes (%) (Auto) 8 0-12 % Eosinophils (%) (Auto) 1 0-10 % Basophils (%) (Auto) 0 0-10 % Neutrophils # (Auto) 7.6 1.8-7.8 X 10^3 Lymphocytes # (Auto) 1.4 1.0-4.0 X 10^3 Monocytes # (Auto) 0.8 0.0-1.0 X 10^3 Eosinophils # (Auto) 0.1 0.0-0.3 10^3/uL Basophils # (Auto) 0.0 0.0-0.1 10^3/uL Sodium Level 136 135-145 MMOL/L Potassium Level 3.6 3.6-5.0 MMOL/L Chloride Level 106 98-107 MMOL/L Carbon Dioxide Level 20 L 21-32 MMOL/L Anion Gap 10 5-14 MMOL/L Blood Urea Nitrogen 8 7-18 MG/DL Creatinine 0.76 0.60-1.30 MG/DL Estimat Glomerular Filtration Rate > 60 BUN/Creatinine Ratio 11 Glucose Level 109 H 70-105 MG/DL Calcium Level 9.1 8.5-10.1 MG/DL Total Bilirubin 0.3 0.1-1.0 MG/DL Aspartate Amino Transf (AST/SGOT) 18 5-34 U/L Alanine Aminotransferase (ALT/SGPT) 24 0-55 U/L Alkaline Phosphatase 74 40-136 U/L C-Reactive Protein High Sensitivity 23.01 H 0.00-0.50 MG/DL Total Protein 7.5 6.4-8.2 GM/DL Albumin 3.6 3.2-4.5 GM/DL Serum Test, Qualitative NEGATIVE NEGATIVE Lactic Acid Level 1.05 0.50-2.00 MMOL/L My Orders Orders - NORMA BAGLEY Cbc With Automated Diff (11/19/17 23:35) Comprehensive Metabolic Panel (11/19/17 23:35) Hs C Reactive Protein (11/19/17 23:35) Hcg,Qualitative Serum (11/19/17 23:35) Lactic Acid Analyzer (11/19/17 23:35) Blood Culture (11/19/17 23:35) Saline Lock/Iv-Start (11/19/17 23:35) Ceftriaxone Injection (Rocephin Injectio (11/19/17 23:45) Ns Iv 1000 Ml (Sodium Chloride 0.9%) (11/19/17 23:45) Fentanyl Injection (Sublimaze Injection (11/19/17 23:45) Hand, Right, 3 Views (11/20/17 00:01) Medications Given in ED Current Medications Medications Dose Ordered Sig/Naomi Route Start Time Stop Time Status Last Admin Dose Admin Ceftriaxone Sodium 1000 mg/ Sodium Chloride 100 ml @ 200 mls/hr ONCE ONCE IV 11/19/17 23:45 11/20/17 00:14 DC 11/20/17 00:25 200 MLS/HR Fentanyl Citrate 50 mcg ONCE ONCE IVP 11/19/17 23:45 11/19/17 23:46 DC 11/20/17 00:24 50 MCG Vital Signs/I&O Vital Sign - Last 12Hours 11/19/17 23:28 Temp 96.2 Pulse 116 Resp 20 B/P (MAP) 110/68 (82) Pulse Ox 100 O2 Delivery Room Air Progress Note : Time: 23:42 Progress Note She has good pulses but what appears to be 2+ edema and cellulitis in her right hand. No evidence of any abscess, area of fluctuance or induration. The note from yesterday was reviewed and x-ray from yesterday shows no gas or osseous infection. We will outline the cellulitis repeat labs and get another x-ray for any further evidence of gas gangrene or osteomyelitis. Plan to give her Rocephin after getting some blood cultures and admit her and she says she is willing to be admitted this time. Diagnostic Imaging Diagonstic Imaging: Xray Plain Films/CT/US/NM/MRI: hand (r) Comments No acute osseous abnormality evidence of osteomyelitis or free air. Reviewed: Reviewed by Me Departure Communication (Admissions) Time/Spoke to Admitting Phy: 01:05 Communication Discussed case imaging and labs with Dr. Cullen she is okay with Jessica. Impression Impression: Primary Impression: Cellulitis of right hand Disposition: ADMITTED INPATIENT Condition: Stable Admissions Decision to Admit Reason: Admit from ER (General) Decision to Admit/Date: Nov 20, 2017 Time/Decision to Admit Time: 01:07 Departure-Patient Inst. Referrals: [facility] (PCP/Family) Primary Care Physician NORMA BAGLEY Nov 19, 2017 23:42
[2017-11-19] MEDS ORDERED: cefTRIAXone INJECTION 1,000 MG in NS (IVPB) 100 ML IV ONE (23:45)
[2017-11-19] MEDS ORDERED: fentaNYL INJECTION 100 MCG/2 ML AMP IVP ONE (23:45)
[2017-11-19] MEDS ORDERED: NS IV 1000 ML 1,000 ML IV SCH (23:45)
[2017-11-20 00:14] LABS: BASOPHILS % (AUTO) 0 % (0-10); EOSINOPHILS # (AUTO) 0.1 10^3/uL (0.0-0.3); EOSINOPHILS % (AUTO) 1 % (0-10); HEMATOCRIT 34 % (35-52); HEMOGLOBIN 11.3 G/DL (11.5-16.0); LYMPHOCYTES # (AUTO) 1.4 X 10^3 (1.0-4.0); LYMPHOCYTES % (AUTO) 14 % (12-44); MEAN CORPUSCULAR HEMOGLOBIN 31 PG (25-34); MEAN CORPUSCULAR HGB CONC 34 G/DL (32-36); MEAN CORPUSCULAR VOLUME 92 FL (80-99); MEAN PLATELET VOLUME 9.6 FL (7.4-10.4); MONOCYTES # (AUTO) 0.8 X 10^3 (0.0-1.0); MONOCYTES % (AUTO) 8 % (0-12); NEUTROPHILS # (AUTO) 7.6 X 10^3 (1.8-7.8); NEUTROPHILS % (AUTO) 77 % (42-75); PLATELET COUNT 245 10^3/uL (130-400); RED BLOOD COUNT 3.64 10^6/uL (4.35-5.85); RED CELL DISTRIBUTION WIDTH 13.1 % (10.0-14.5)
[2017-11-20 00:43] LABS: CARBON DIOXIDE 20 MMOL/L (21-32); CHLORIDE 106 MMOL/L (98-107); POTASSIUM 3.6 MMOL/L (3.6-5.0); SODIUM 136 MMOL/L (135-145)
[2017-11-20 00:44] LABS: ALANINE AMINOTRANSFERASE 24 U/L (0-55); ALBUMIN 3.6 GM/DL (3.2-4.5); ALKALINE PHOSPHATASE 74 U/L (40-136); BILIRUBIN,TOTAL 0.3 MG/DL (0.1-1.0); BUN/CREATININE RATIO 11; CALCIUM 9.1 MG/DL (8.5-10.1); CREATININE SERUM 0.76 MG/DL (0.60-1.30); GFR ESTIMATED > 60; GLUCOSE 109 MG/DL (70-105); TOTAL PROTEIN 7.5 GM/DL (6.4-8.2)
[2017-11-20] MEDS ORDERED: NS IV 1000 ML 1,000 ML IV ONE (01:14)
[2017-11-20 02:48] VITALS: BP 136/94
[2017-11-20 04:00] VITALS: BP 124/71
[2017-11-20] MEDS ORDERED: ACETAMINOPHEN 500 MG TAB (TYLENOL) PO PRN (04:00)
[2017-11-20] MEDS ORDERED: CATHETER FLUSH 10 ML SYR IV PRN (04:00)
[2017-11-20] MEDS ORDERED: fentaNYL INJECTION 100 MCG/2 ML AMP IV PRN (04:00)
[2017-11-20] MEDS ORDERED: ZOLPIDEM 5 MG (AMBIEN) TAB PO PRN (04:00)
[2017-11-20] MEDS ORDERED: ONDANSETRON 4 MG/2 ML (SDV) Z0FRAN IV PRN (04:00)
[2017-11-20] MEDS: CATHETER FLUSH 10 ML SYR IV SCH ×3 (05:57→20:36)
[2017-11-20 06:42] LABS: BASOPHILS % (AUTO) 0 % (0-10); EOSINOPHILS # (AUTO) 0.1 10^3/uL (0.0-0.3); EOSINOPHILS % (AUTO) 1 % (0-10); HEMATOCRIT 31 % (35-52); HEMOGLOBIN 10.8 G/DL (11.5-16.0); LYMPHOCYTES # (AUTO) 1.2 X 10^3 (1.0-4.0); LYMPHOCYTES % (AUTO) 12 % (12-44); MEAN CORPUSCULAR HEMOGLOBIN 31 PG (25-34); MEAN CORPUSCULAR HGB CONC 35 G/DL (32-36); MEAN CORPUSCULAR VOLUME 90 FL (80-99); MEAN PLATELET VOLUME 9.6 FL (7.4-10.4); MONOCYTES # (AUTO) 0.8 X 10^3 (0.0-1.0); MONOCYTES % (AUTO) 8 % (0-12); NEUTROPHILS # (AUTO) 8.1 X 10^3 (1.8-7.8); NEUTROPHILS % (AUTO) 80 % (42-75); PLATELET COUNT 248 10^3/uL (130-400); RED BLOOD COUNT 3.49 10^6/uL (4.35-5.85); RED CELL DISTRIBUTION WIDTH 13.2 % (10.0-14.5); WHITE BLOOD COUNT 10.2 10^3/uL (4.3-11.0)
[2017-11-20 07:06] LABS: BUN/CREATININE RATIO 11; CALCIUM 8.5 MG/DL (8.5-10.1); CARBON DIOXIDE 21 MMOL/L (21-32); CHLORIDE 107 MMOL/L (98-107); CREATININE SERUM 0.65 MG/DL (0.60-1.30); GFR ESTIMATED > 60; GLUCOSE 109 MG/DL (70-105); POTASSIUM 3.5 MMOL/L (3.6-5.0); SODIUM 135 MMOL/L (135-145)
--- NOTE | 2017-11-20 07:48 | Diagnostic Imaging Report ---
INDICATION: Right hand swelling. EXAMINATION: Three views were obtained. COMPARISON: Comparison is made with the prior examination dated 11/16/2017. FINDINGS: The alignment of the hand is normal. There is no fracture or dislocation. There is soft tissue swelling along the dorsal aspect of the hand. This is increased significantly since prior examination. There is no evidence of subcutaneous gas or foreign body. IMPRESSION: Marked soft tissue swelling on the dorsal aspect of the hand otherwise unremarkable. Dictated by: Dictated on workstation # [id number]
[2017-11-20 08:00] VITALS: BP 123/74
[2017-11-20] MEDS ORDERED: IBUP-30 PO (08:55)
[2017-11-20] MEDS ORDERED: NAPR220T66 PO (08:55)
[2017-11-20] MEDS ORDERED: BUTA1CAP41 PO (09:00)
--- NOTE | 2017-11-20 11:23 | History & Physicial ([facility]) ---
HPI History of Present Illness: Attempted to see patient 11/20, however she remained in the bathroom and would not come out for ~45 minutes. As she had been seen by the ED staff after midnight, her H&P was deferred until 11/21/17. Patient presented to ED with report of "spider bite". She had been at the ED over the weekend and left AMA because she reportedly needed to get something from the store. She returned because her right had had more swelling and redness. When seen on 11/21, patient's redness had receded significantly from the drawn borders, and she reports her swelling in her right hand had improved. She states she thought that maybe she was bitten by something on her left hand , but ever only had redness and swelling in her right hand. HIV positive, follows in [facility] at the [facility]. Diagnosed in 2007. Compliant with medications. Source: patient Exam Limitations: no limitations Date seen by provider: Nov 21, 2017 Time Seen by Provider: 14:00 Attending Physician Chanelle Waddell DO [facility] Consult Date of Admission Nov 20, 2017 at 01:05 Home Medications Home Medications Reviewed patient Home Medication Reconciliation performed by pharmacy medication reconciliations missile and missile checkout technician and/or nursing. Patients Allergies have been reviewed. Allergies Coded Allergies: No Known Drug Allergies (Unverified , 10/13/12) WJP-Zaffry-Ymjryj Hx Patient Social History Marrital Status: cohabiting Living Status: lives with significant other Alcohol Use: Denies Use Recreational Drug Use: Yes Drug of Choice: Meth Smoking Status: Current Everyday Smoker Type Used: Cigarettes 2nd Hand Smoke Exposure: Yes Recent Foreign Travel: No Contact w/other who traveled: No Recent Hopitalizations: No Recent Infectious Disease Expo: No Physical Abuse Screen: No Sexual Abuse: No Immunizations Up To Date Tetanus Booster (TDap): Less than 5yrs Date of Influenza Vaccine: Aug 01, 2017 Past Medical History HIV Positive - diagnosed 2007 Anxiety Mood Disorder Family Medical History Family History: Patient reports no known family medical history. Review of Systems ([facility]) Constitutional: see HPI EENTM: no symptoms reported Respiratory: no symptoms reported Cardiovascular: edema (right hand) Gastrointestinal: no symptoms reported Genitourinary: no symptoms reported : No Musculoskeletal: see HPI (right hand swelling) Skin: change in color (redness on right hand, lower forearm) Psychiatric/Neurological: No Symptoms Reported Reviewed Test Results Reviewed Test Results Lab Laboratory Tests Test 11/21/17 08:34 Range/Units White Blood Count 6.3 4.3-11.0 10^3/uL Red Blood Count 3.58 L 4.35-5.85 10^6/uL Hemoglobin 11.1 L 11.5-16.0 G/DL Hematocrit 32 L 35-52 % Mean Corpuscular Volume 90 80-99 FL Mean Corpuscular Hemoglobin 31 25-34 PG Mean Corpuscular Hemoglobin Concent 35 32-36 G/DL Red Cell Distribution Width 13.4 10.0-14.5 % Platelet Count 287 130-400 10^3/uL Mean Platelet Volume 9.1 7.4-10.4 FL Neutrophils (%) (Auto) 73 42-75 % Lymphocytes (%) (Auto) 18 12-44 % Monocytes (%) (Auto) 8 0-12 % Eosinophils (%) (Auto) 1 0-10 % Basophils (%) (Auto) 1 0-10 % Neutrophils # (Auto) 4.6 1.8-7.8 X 10^3 Lymphocytes # (Auto) 1.1 1.0-4.0 X 10^3 Monocytes # (Auto) 0.5 0.0-1.0 X 10^3 Eosinophils # (Auto) 0.1 0.0-0.3 10^3/uL Basophils # (Auto) 0.0 0.0-0.1 10^3/uL Sodium Level 137 135-145 MMOL/L Potassium Level 3.3 L 3.6-5.0 MMOL/L Chloride Level 106 98-107 MMOL/L Carbon Dioxide Level 26 21-32 MMOL/L Anion Gap 5 5-14 MMOL/L Blood Urea Nitrogen 4 L 7-18 MG/DL Creatinine 0.62 0.60-1.30 MG/DL Estimat Glomerular Filtration Rate > 60 BUN/Creatinine Ratio 6 Glucose Level 138 H 70-105 MG/DL Calcium Level 8.8 8.5-10.1 MG/DL Magnesium Level 2.0 1.8-2.4 MG/DL Radiology Right hand xray showed increased soft tissue swelling when compared to previous Physical Exam-([facility]) Physical Exam Vital Signs VS - Last 72 Hours, by Label 11/20/17 11/21/17 11/21/1711/21/18 19:53 00:00 00:25 00:55 Temp 99.8 100.5 100.5 97.8 Pulse 97 103 Resp 18 16 B/P (MAP) 154/80 (104) 135/70 (91) Pulse Ox 99 96 O2 Delivery Room Air Room Air 11/21/17 11/21/17 11/21/17 11/21/17 03:20 07:50 12:00 16:00 Temp 97.8 97.8 99.8 Pulse 85 92 89 Resp 18 22 20 B/P (MAP) 113/71 (85) 97/61 (73) 111/57 (75) Pulse Ox 99 99 98 O2 Delivery Room Air Room Air Room Air Capillary Refill : Less Than 3 SecondsLess Than 3 Seconds General Appearance: WD/WN, no apparent distress Eyes: Bilateral Eye Normal Inspection, Bilateral Eye PERRL, Bilateral Eye EOMI HEENT: PERRL/EOMI, normal ENT inspection, pharynx normal, No scleral icterus (R ), No scleral icterus (L), No photophobia Neck: non-tender, full range of motion, supple, normal inspection Respiratory: chest non-tender, lungs clear, normal breath sounds, no respiratory distress, no accessory muscle use Cardiovascular: normal peripheral pulses, regular rate, rhythm, no gallop, no JVD, other (mild right hand edema) Peripheral Pulses: 2+ Radial Pulses (R), 2+ Radial Pulses (L) Gastrointestinal: normal bowel sounds, non tender, soft, no organomegaly, no pulsatile mass Rectal: deferred Extremities: normal range of motion, non-tender, no pedal edema, no calf tenderness, normal capillary refill, other (right hand with mild edema and trace amount of redness that has far receded from borders drawn on admission) Neurologic/Psychiatric: fuel tank sealer and tester II-XII nml as tested, no motor/sensory deficits, alert, normal mood/affect, oriented x 3 Skin: normal color, warm/dry, other (mild right hand redness as noted above) Lymphatic: no adenopathy Assessment/Plan Assessment/Plan Admission Dx Cellulitis HIV Positive Tobacco Abuse Admission Status: Inpatient Order (span 2 midnights) Reason for Inpatient Admission: IV antibiotics Assessment & Plan Cellulitis -the patient was admitted and started on IV rocephin -on the day of discharge she had received three doses of IV abx, had a white count WNL, and had been afebrile since admission -the patient had borders marked on admission and redness has significantly receded, her swelling has also significantly improved -will discharge to home on PO antibiotics and follow up at [facility] next week for recheck, follow up appt made prior to discharge HIV Positive -continue home medications Tobacco Abuse -cessation encouraged Clinical Quality Measures DVT/VTE Risk/Contraindication: Risk Factor Score Per Nursin RFS Level Per Nursing on Admit: 3=High Copy Copies To 1: [facility]/CHANELLE SUNG DO Nov 20, 2017 11:23
[2017-11-20] MEDS ORDERED: ACET/BUTAL/CAFF (FIORICET) TAB PO PRN (11:30)
[2017-11-20] MEDS ORDERED: NAPROXEN 250 MG (NAPROSYN) TABLET PO PRN (11:30)
[2017-11-20 12:00] VITALS: BP 127/65
[2017-11-20] MEDS ORDERED: PATIENT MAY USE OWN MED,SINGLE MED PO SCH (12:45)
[2017-11-20] MEDS: GENVOYA PO SCH (13:07)
[2017-11-20 16:00] VITALS: BP 125/76
[2017-11-20 19:53] VITALS: BP 154/80
[2017-11-20] MEDS ORDERED: cefTRIAXone 1 GM/NS 100 ML IVPB IV SCH ×2 (21:00)
[2017-11-21] VITALS: BP 135/70
[2017-11-21] MEDS: IBUPROFEN 800 MG (MOTRIN) TAB PO PRN ×2 (00:25→12:34)
[2017-11-21 03:20] VITALS: BP 113/71
[2017-11-21] MEDS: CATHETER FLUSH 10 ML SYR IV SCH ×2 (06:29→14:10)
[2017-11-21 07:50] VITALS: BP 97/61
[2017-11-21 09:10] LABS: BASOPHILS % (AUTO) 1 % (0-10); EOSINOPHILS # (AUTO) 0.1 10^3/uL (0.0-0.3); EOSINOPHILS % (AUTO) 1 % (0-10); HEMATOCRIT 32 % (35-52); HEMOGLOBIN 11.1 G/DL (11.5-16.0); LYMPHOCYTES # (AUTO) 1.1 X 10^3 (1.0-4.0); LYMPHOCYTES % (AUTO) 18 % (12-44); MEAN CORPUSCULAR HEMOGLOBIN 31 PG (25-34); MEAN CORPUSCULAR HGB CONC 35 G/DL (32-36); MEAN CORPUSCULAR VOLUME 90 FL (80-99); MEAN PLATELET VOLUME 9.1 FL (7.4-10.4); MONOCYTES # (AUTO) 0.5 X 10^3 (0.0-1.0); MONOCYTES % (AUTO) 8 % (0-12); NEUTROPHILS # (AUTO) 4.6 X 10^3 (1.8-7.8); NEUTROPHILS % (AUTO) 73 % (42-75); PLATELET COUNT 287 10^3/uL (130-400); RED BLOOD COUNT 3.58 10^6/uL (4.35-5.85); RED CELL DISTRIBUTION WIDTH 13.4 % (10.0-14.5); WHITE BLOOD COUNT 6.3 10^3/uL (4.3-11.0)
[2017-11-21 09:21] LABS: BUN/CREATININE RATIO 6; CALCIUM 8.8 MG/DL (8.5-10.1); CARBON DIOXIDE 26 MMOL/L (21-32); CHLORIDE 106 MMOL/L (98-107); CREATININE SERUM 0.62 MG/DL (0.60-1.30); GFR ESTIMATED > 60; GLUCOSE 138 MG/DL (70-105); POTASSIUM 3.3 MMOL/L (3.6-5.0); SODIUM 137 MMOL/L (135-145)
[2017-11-21] MEDS: GENVOYA PO SCH (09:22)
[2017-11-21 12:00] VITALS: BP 111/57
[2017-11-21] MEDS ORDERED: KCL 20 MEQ TAB (K-DUR) PO NR (13:00)
--- NOTE | 2017-11-21 14:12 | Discharge Summary ---
Diagnosis/Chief Complaint Date of Admission Nov 20, 2017 at 01:05 Date of Discharge 11/21/17 Admission Diagnosis Admission Diagnosis Cellulitis HIV Positive Tobacco Abuse Discharge Diagnosis Cellulitis -the patient was admitted and started on IV rocephin -on the day of discharge she had received three doses of IV abx, had a white count WNL, and had been afebrile since admission -the patient had borders marked on admission and redness has significantly receded, her swelling has also significantly improved -will discharge to home on PO antibiotics and follow up at [facility] next week for recheck, follow up appt made prior to discharge HIV Positive -continue home medications Tobacco Abuse -cessation encouraged Chief Complaint/HPI Chief Complaint/HPI Attempted to see patient 11/20, however she remained in the bathroom and would not come out for ~45 minutes. As she had been seen by the ED staff after midnight, her H&P was deferred until 11/21/17. Patient presented to ED with report of "spider bite". She had been at the ED over the weekend and left AMA because she reportedly needed to get something from the store. She returned because her right had had more swelling and redness. When seen on 11/21, patient's redness had receded significantly from the drawn borders, and she reports her swelling in her right hand had improved. She states she thought that maybe she was bitten by something on her left hand , but ever only had redness and swelling in her right hand. HIV positive, follows in [facility]. Diagnosed in 2007. Compliant with medications. Discharge Summary-Simple/Stand Consultations Discharge Physical Examination Allergies: Coded Allergies: No Known Drug Allergies (Unverified , 10/13/12) Vitals & I&Os Vital Sign - Last 12Hours Date Time Temp Pulse Resp B/P (MAP) Pulse Ox O2 Delivery O2 Flow Rate FiO2 11/21/17 07:50 97.8 92 22 97/61 (73) 99 Room Air Intake and Output 11/21/17 00:00 Intake Total 1580 ml Balance 1580 ml General Appearance: Other (please see H&P done at the same time as discharge for physical exam findings) Hospital Course See final discharge diagnosis. Labs Laboratory Tests Test 11/21/17 08:34 Range/Units White Blood Count 6.3 4.3-11.0 10^3/uL Red Blood Count 3.58 L 4.35-5.85 10^6/uL Hemoglobin 11.1 L 11.5-16.0 G/DL Hematocrit 32 L 35-52 % Mean Corpuscular Volume 90 80-99 FL Mean Corpuscular Hemoglobin 31 25-34 PG Mean Corpuscular Hemoglobin Concent 35 32-36 G/DL Red Cell Distribution Width 13.4 10.0-14.5 % Platelet Count 287 130-400 10^3/uL Mean Platelet Volume 9.1 7.4-10.4 FL Neutrophils (%) (Auto) 73 42-75 % Lymphocytes (%) (Auto) 18 12-44 % Monocytes (%) (Auto) 8 0-12 % Eosinophils (%) (Auto) 1 0-10 % Basophils (%) (Auto) 1 0-10 % Neutrophils # (Auto) 4.6 1.8-7.8 X 10^3 Lymphocytes # (Auto) 1.1 1.0-4.0 X 10^3 Monocytes # (Auto) 0.5 0.0-1.0 X 10^3 Eosinophils # (Auto) 0.1 0.0-0.3 10^3/uL Basophils # (Auto) 0.0 0.0-0.1 10^3/uL Sodium Level 137 135-145 MMOL/L Potassium Level 3.3 L 3.6-5.0 MMOL/L Chloride Level 106 98-107 MMOL/L Carbon Dioxide Level 26 21-32 MMOL/L Anion Gap 5 5-14 MMOL/L Blood Urea Nitrogen 4 L 7-18 MG/DL Creatinine 0.62 0.60-1.30 MG/DL Estimat Glomerular Filtration Rate > 60 BUN/Creatinine Ratio 6 Glucose Level 138 H 70-105 MG/DL Calcium Level 8.8 8.5-10.1 MG/DL Magnesium Level 2.0 1.8-2.4 MG/DL Radiology Reviewed right hand xray in ED shows increased soft tissue swelling when compared to previous right hand films from over the weekend Discharge Condition at discharge stable Instructions to patient/family Please see electronic discharge instructions given to patient. Discharge Medications Reviewed and agree with Discharge Medication list on patient's Discharge Instruction sheet Clinical Quality Measures DVT/VTE Risk/Contraindication: Risk Factor Score Per Nursin RFS Level Per Nursing on Admit: 3=High Copy Copies To 1: [facility]/JACLYN SUNG DO Nov 21, 2017 14:12
[2017-11-21] MEDS ORDERED: CEPH-507 PO (14:13)
== END 2017-11-21 16:00 | disposition home or self-care (01) | DRG 602 ==
LOC: EDUNIT# 22:56 → ER 22:57 → 4TH 11-20 01:05
PROVIDERS: ADMIT Internal Medicine; ATTEND Family Medicine
DX: L03.113 Cellulitis of right upper limb (principal); G43.909 Migraine, unspecified, not intractable, without status migrainosus; B20 Human immunodeficiency virus [HIV] disease; F41.9 Anxiety disorder, unspecified; F17.210 Nicotine dependence, cigarettes, uncomplicated; Z79.899 Other long term (current) drug therapy
CPT/HCPCS: 36415; 73130; 80048; 80053; 83605; 83735; 84703; 85025; 86141; 87040; 96361; 96365; 96375

== ENCOUNTER 2019-04-11 02:20 | Inpatient (IN) | payer BC, MEDICAID ==
[~2019-04-11] VITALS: Ht 162.6 cm; Wt 66.3 kg
[2019-04-11] VITALS (7 sets, daily range): BP systolic 104–139; BP diastolic 64–91
[~2019-04-11 02:20] MED LIST changes: +BUTA1CAP41 PO; +CEPH-507 PO; +IBUP-30 PO; +NAPR220T66 PO
--- OUTSIDE RECORDS SUMMARY | 2019-04-11 02:27 | XMS REPORT ---
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 Name Role Phone Meg Wells Unavailable PROBLEMS Type Condition ICD9-CM Code [id number] Code Onset Dates Condition Status SNOMED Code Problem Nicotine dependence, cigarettes, uncomplicated F17.210 Active 23600948 Problem Moderate episode of recurrent major depressive disorder F33.1 Active 323737812 Problem jail current use of opiate analgesic Z79.891 Active 581475103 Problem Generalized anxiety disorder F41.1 Active 46117879 Problem Low back pain M54.5 Active 619268511 Problem Asymptomatic human immunodeficiency virus (HIV) infection status Z21 Active 37607629 Problem GERD (gastroesophageal reflux disease) K21.9 Active 595509032 ALLERGIES No Information ENCOUNTERS Encounter Location Date Diagnosis [facility] [address] [id number] Aug, [facility] [address] [place] [id number] Jul, [facility] [address] [id number] Mar, Asymptomatic human immunodeficiency virus (HIV) infection status Z21 and Generalized anxiety disorder F41.[address] [address] Oct, Asymptomatic human immunodeficiency virus (HIV) infection status Z21 [address] [address] Jul, [address] [id number] Jul, Asymptomatic human immunodeficiency virus (HIV) infection status Z21 ; Influenza vaccine needed Z23 ; Moderate episode of recurrent major depressive disorder F33.1 and Wasting syndrome R64 [facility] [address] [place] [phone] Aug, Asymptomatic human immunodeficiency virus (HIV) infection status Z21 ; jail current use of opiate analgesic Z79.891 ; Generalized anxiety disorder F41.1 ; Low back pain M54.5 ; GERD (gastroesophageal reflux disease) K21.9 and Nicotine dependence, cigarettes, uncomplicated F17.[address] [id number] December, Asymptomatic human immunodeficiency virus (HIV) infection status Z21 ; Low back pain M54.5 ; Smoker F17.200 ; Primary insomnia F51.01 ; Migraine, unspecified, not intractable, without status migrainosus G43.909 and Generalized anxiety disorder F41.1 [facility] [address] [place] [address] Oct, [address] [id number] Sep, Asymptomatic human immunodeficiency virus [HIV] infection status Z21 ; Smoker F17.200 ; GERD (gastroesophageal reflux disease) K21.9 ; Low back pain M54.5 ; Migraine, unspecified, not intractable, without status migrainosus G43.909 and Generalized anxiety disorder F41.[address] [id number] Jun, Needs flu shot Z23 ; Asymptomatic human immunodeficiency virus [HIV] infection status Z21 and Major depressive disorder, single episode, unspecified F32.[address] [id number] Mar, Asymptomatic human immunodeficiency virus (HIV) infection status V08 and Chronic prescription opiate use V58.69 [facility] [address] [facility] [address] [place] [phone] Jan, [address] [id number] Sep, Asymptomatic human immunodeficiency virus (HIV) infection status V08 ; Chronic prescription opiate use V58.69 and Headache 784.0 [facility] [address] [place] [address] Sep, Migraine, unspecified without mention of intractable migraine without mention of status migrainosus 346.90 and Insomnia, unspecified 780.[address] [place], [place] [id number] Jun, Human immunodeficiency virus (HIV) disease 042 ; Flu vaccine need V04.81 and Need for pneumococcal vaccination V03.82 [facility] [place] [facility] [address] [facility] [address] [place], [place] [phone] May, [facility] [place] [facility] [address] [facility] [address] [place] [id number] Apr, [facility] [place] [facility] [address] [facility] [address] [place], [place] [phone] Apr, [facility] [address] [facility] [address] [place], [place] [phone] December, [facility] [address] [facility] [place] [address] Sep, [facility] [address] [facility] [place] [address] Jul, [facility] [address] [facility] [place] [address] Jun, [facility] [address] [facility] [place] [address] Nov, [facility] [address] [facility] [place] [address] Sep, [facility] [address] [facility] [place] [address] Aug, [facility] [address] [facility] [place] [address] December, [facility] [address] [facility] [place] [address] Sep, IMMUNIZATIONS No Known Immunizations SOCIAL HISTORY Never Assessed REASON FOR VISIT fyi PLAN OF CARE VITAL SIGNS MEDICATIONS Unknown Medications RESULTS No Results PROCEDURES No Known procedures INSTRUCTIONS MEDICATIONS ADMINISTERED No Known Medications MEDICAL (GENERAL) HISTORY Type Description Date Medical History Amphetamine or related acting sympathomimetic abuse, episodic use ; Medical History Backache, unspecified (724.5) ; Medical History Nondependent tobacco use disorder , (Desc:Tobacco use disorder) ; Medical History Acute bronchitis (Inactive) Medical History Acute upper respiratory infections of other multiple sites (Inactive) Medical History Rash and other nonspecific skin eruption (Inactive)
--- OUTSIDE RECORDS SUMMARY | 2019-04-11 02:27 | XMS REPORT ---
Author Author Meg Wells [facility] Address [address] [place] [phone] Care Team Providers Care Marble Installer Name Role Phone Meg Wells Unavailable PROBLEMS Type Condition ICD9-CM Code [id number] Code Onset Dates Condition Status SNOMED Code Problem Nicotine dependence, cigarettes, uncomplicated F17.210 Active 80395330 Problem Moderate episode of recurrent major depressive disorder F33.1 Active 669834570 Problem [facility] current use of opiate analgesic Z79.891 Active 350138928 Problem Generalized anxiety disorder F41.1 Active 69946257 Problem Low back pain M54.5 Active 035646434 Problem Asymptomatic human immunodeficiency virus (HIV) infection status Z21 Active 97364958 Problem GERD (gastroesophageal reflux disease) K21.9 Active 005928361 ALLERGIES No Information ENCOUNTERS Encounter Location Date Diagnosis [address] [id number] Aug, Asymptomatic human immunodeficiency virus (HIV) infection status Z21 ; Influenza vaccine needed Z23 ; Generalized anxiety disorder F41.1 and [facility] current use of opiate analgesic Z79.891 [facility] [address] [place] [phone] Jul, [facility] [address] [id number] Mar, Asymptomatic human immunodeficiency virus (HIV) infection status Z21 and Generalized anxiety disorder F41.[address] [address] Oct, Asymptomatic human immunodeficiency virus (HIV) infection status Z21 [address] [address] Jul, [address] [id number] Jul, Asymptomatic human immunodeficiency virus (HIV) infection status Z21 ; Influenza vaccine needed Z23 ; Moderate episode of recurrent major depressive disorder F33.1 and Wasting syndrome R64 [facility] [address] [place] [phone] Aug, Asymptomatic human immunodeficiency virus (HIV) infection status Z21 ; [facility] current use of opiate analgesic Z79.891 ; Generalized anxiety disorder F41.1 ; Low back pain M54.5 ; GERD (gastroesophageal reflux disease) K21.9 and Nicotine dependence, cigarettes, uncomplicated F17.[address] [id number] December, Asymptomatic human immunodeficiency virus (HIV) infection status Z21 ; Low back pain M54.5 ; Smoker F17.200 ; Primary insomnia F51.01 ; Migraine, unspecified, not intractable, without status migrainosus G43.909 and Generalized anxiety disorder F41.[address] [address] Oct, [address] [id number] Sep, Asymptomatic human immunodeficiency virus [HIV] infection status Z21 ; Smoker F17.200 ; GERD (gastroesophageal reflux disease) K21.9 ; Low back pain M54.5 ; Migraine, unspecified, not intractable, without status migrainosus G43.909 and Generalized anxiety disorder F41.[address] [id number] Jun, Needs flu shot Z23 ; Asymptomatic human immunodeficiency virus [HIV] infection status Z21 and Major depressive disorder, single episode, unspecified F32.[address] [id number] Mar, Asymptomatic human immunodeficiency virus (HIV) infection status V08 and Chronic prescription opiate use V58.69 [facility] [address] [facility] [address] [place], [place] [phone] Jan, [address] [id number] Sep, Asymptomatic human immunodeficiency virus (HIV) infection status V08 ; Chronic prescription opiate use V58.69 and Headache 784.[address] [address] Sep, Migraine, unspecified without mention of intractable migraine without mention of status migrainosus 346.90 and Insomnia, unspecified 780.52 [facility] [address] [place], [place] [id number] Jun, Human immunodeficiency virus (HIV) disease 042 ; Flu vaccine need V04.81 and Need for pneumococcal vaccination V03.82 [facility] [address] [facility] [address] [place], [place] [phone] May, [facility] [address] [facility] [address] [place], [place] [phone] Apr, [facility] [address] [facility] [address] [place], [place] [phone] Apr, [facility] [address] [facility] [address] [place] [phone] December, [facility] [address] [place] [address] Sep, [facility] [address] [place] [address] Jul, [facility] [address] [place] [address] Jun, [facility] [address] [place] [address] Nov, [facility] [address] [place] [address] Sep, [facility] [address] [place] [address] Aug, [facility] [address] [place] [address] December, [facility] [address] [place] [address] Sep, IMMUNIZATIONS Vaccine Route Administration Date Status Influenza Split 3 yrs > (QUAD) IM Intramuscular Aug 07, 2018 Administered SOCIAL HISTORY Never Assessed REASON FOR VISIT HIV f/u PLAN OF CARE Activity Details Follow Up 4 Months Reason: Pending Test Human Immunodeficiency Virus (HIV-1), Quantitative, Real-time PCR (graph) 74261 Pending Test Rapid Plasma Reagin (RPR), Test w/ Reflex to Quant RPR/Confirm Treponema pallidum Antibodies 71933 Pending Test Metabolic Panel (14), Comprehensive (CMP) 27210 Pending Test CD4/CD8 Ratio Profile 79549 Pending Test PainComp Profile Blood VITAL SIGNS Height 64 in 2018-08-07 Weight 145 lbs 2018-08-07 Temperature 97.6 degrees Fahrenheit 2018-08-07 Heart Rate 99 /min 2018-08-07 Respiratory Rate 20 /min 2018-08-07 Oximetry 99 % 2018-08-07 BMI 24.89 kg/m2 2018-08-07 Blood pressure systolic 114 mm Hg 2018-08-07 Blood pressure diastolic 78 mm Hg 2018-08-07 MEDICATIONS Medication Instructions Dosage Frequency Start Date End Date Duration Status Remeron 30 MG Oral Once a day 1 tablet before bedtime in the evening 24h Sep, 30 days Active Genvoya 150 mg/150 mg/200/mg/10 mg Oral Once a day 1 tablet 24h December, 30 days Active Citalopram Hydrobromide 20 MG Orally Once a day 1 tablet 24h Jul, 30 day(s) Active Xcpypxkapf-PAJV-Ozthgsuu 50-325-40 MG TAKE ONE TABLET BY MOUTH ONCE DAILY NEEDED ; MAY REPEAT ONE TIME IN 4 HOURS 30 Active RESULTS No Results PROCEDURES Procedure Date Ordered Result Body Site BLOOD SEROLOGY, QUALITATIVE Aug 07, 2018 COMPREHEN METABOLIC PANEL Aug 07, 2018 T CELL, ABSOLUTE COUNT/RATIO Aug 07, 2018 IMMUNIZATION ADMIN Aug 07, 2018 FLU VAC NO PRSV 4 JORGE A 3 YRS+ Aug 07, 2018 INSTRUCTIONS MEDICATIONS ADMINISTERED No Known Medications MEDICAL [...]
--- OUTSIDE RECORDS SUMMARY | 2019-04-11 02:27 | XMS REPORT ---
Author Author Meg Wells [facility] Address [address] [place] [phone] Care Team Providers Care Business Banking Representative Name Role Phone Meg Wells Unavailable PROBLEMS Type Condition ICD9-CM Code ESB40-PB Code Onset Dates Condition Status SNOMED Code Problem Nicotine dependence, cigarettes, uncomplicated F17.210 Active 55122649 Problem Low back pain M54.5 Active 783938167 Problem Moderate episode of recurrent major depressive disorder F33.1 Active 701814795 Problem Other migraine without status migrainosus, not intractable G43.809 Active 47369710 Problem Generalized anxiety disorder F41.1 Active 31990616 Problem GERD (gastroesophageal reflux disease) K21.9 Active 899477548 Problem Asymptomatic human immunodeficiency virus (HIV) infection status Z21 Active 30561918 Problem residential current use of opiate analgesic Z79.891 Active 263067576 ALLERGIES No Known Allergies ENCOUNTERS Encounter Location Date Diagnosis [address] [id number] Mar, Generalized anxiety disorder F41.1 ; Asymptomatic human immunodeficiency virus (HIV) infection status Z21 ; Moderate episode of recurrent major depressive disorder F33.1 and Other migraine without status migrainosus, not intractable G43.[address] [id number] Aug, Asymptomatic human immunodeficiency virus (HIV) infection status Z21 ; Influenza vaccine needed Z23 ; Generalized anxiety disorder F41.1 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 [facility] [address] [place] [id number] Jul, [address] [id number] Mar, Asymptomatic human immunodeficiency virus (HIV) infection status Z21 and Generalized anxiety disorder F41.[address] [address] Oct, Asymptomatic human immunodeficiency virus (HIV) infection status Z21 [facility] [address] [place] [address] Jul, [address] [id number] Jul, Asymptomatic human immunodeficiency virus (HIV) infection status Z21 ; Influenza vaccine needed Z23 ; Moderate episode of recurrent major depressive disorder F33.1 and Wasting syndrome R64 [facility] [address] [place] [phone] Aug, Asymptomatic human immunodeficiency virus (HIV) infection status Z21 ; residential current use of opiate analgesic Z79.891 ; Generalized anxiety disorder F41.1 ; Low back pain M54.5 ; GERD (gastroesophageal reflux disease) K21.9 and Nicotine dependence, cigarettes, uncomplicated F17.[address] [id number] December, Asymptomatic human immunodeficiency virus (HIV) infection status Z21 ; Low back pain M54.5 ; Smoker F17.200 ; Primary insomnia F51.01 ; Migraine, unspecified, not intractable, without status migrainosus G43.909 and Generalized anxiety disorder F41.1 [facility] [address] [place] [address] Oct, [address] [id number] Sep, Asymptomatic human immunodeficiency virus [HIV] infection status Z21 ; Smoker F17.200 ; GERD (gastroesophageal reflux disease) K21.9 ; Low back pain M54.5 ; Migraine, unspecified, not intractable, without status migrainosus G43.909 and Generalized anxiety disorder F41.[address] [id number] Jun, Needs flu shot Z23 ; Asymptomatic human immunodeficiency virus [HIV] infection status Z21 and Major depressive disorder, single episode, unspecified F32.[address] [id number] Mar, Asymptomatic human immunodeficiency virus (HIV) infection status V08 and Chronic prescription opiate use V58.69 [facility] [address] [facility] [address] [place], [place] [id number] Jan, [facility] [address] [place], [place] [phone] Sep, Asymptomatic human immunodeficiency virus (HIV) infection status V08 ; Chronic prescription opiate use V58.69 and Headache 784.0 [facility] [address] [place] [address] Sep, Migraine, unspecified without mention of intractable migraine without mention of status migrainosus 346.90 and Insomnia, unspecified 780.52 [facility] [address] [place], [place] [phone] Jun, Human immunodeficiency virus (HIV) disease 042 ; Flu vaccine need V04.81 and Need for pneumococcal vaccination V03.82 [facility] [place] [facility] [address] [facility] [address] [place] [phone] May, [facility] [place] [facility] [address] [facility] [address] [place] [id number] Apr, [facility] [address] [facility] [address] [place], [place] [phone] Apr, [facility] [address] [facility] [address] [place] [phone] December, [facility] [address] [place] [address] Sep, [facility] [address] [place] [address] Jul, [facility] [address] [place] [address] Jun, [facility] [address] [place] [address] Nov, [facility] [address] [place] [address] Sep, [facility] [address] [place] [address] Aug, [facility] [address] [place] [address] December, [facility] [address] [place] [address] Sep, IMMUNIZATIONS No Known Immunizations SOCIAL HISTORY Never Assessed REASON FOR VISIT PLAN OF CARE Activity Details Follow Up 4 Months Reason: Pending Test Human Immunodeficiency Virus (HIV-1), Quantitative, Real-time PCR (graph) 93470 Pending Test Metabolic Panel (14), Comprehensive (CMP) 29563 Pending Test CD4/CD8 Ratio Profile 99220 VITAL SIGNS Height 64 in 2019-03-12 Weight 136 lbs 2019-03-12 Temperature 98.7 degrees Fahrenheit 2019-03-12 Heart Rate 84 /min 2019-03-12 Respiratory Rate 16 /min 2019-03-12 Oximetry 99 % 2019-03-12 BMI 23.34 kg/m2 2019-03-12 Blood pressure systolic 126 mm Hg 2019-03-12 Blood pressure diastolic 82 mm Hg 2019-03-12 MEDICATIONS Medication Instructions Dosage Frequency Start Date End Date Duration Status Citalopram Hydrobromide 20 MG Orally Once a day 1 tablet 24h Jul, 30 day(s) Active Gxwizwxeyz-EVEZ-Qvwkiexd 50-325-40 MG TAKE ONE TABLET BY MOUTH ONCE DAILY NEEDED; MAY REPEAT ONE TIME IN 4 HOURS 40 Active Genvoya 150 mg/150 mg/200/mg/10 mg Oral Once a day 1 tablet 24h 30 Active Remeron 30 MG Oral Once a day 1 tablet before bedtime in the evening 24h Sep, 30 days Active RESULTS No Results PROCEDURES Procedure Date Ordered Result Body Site COMPREHEN METABOLIC PANEL March 12, 2019 HIV-1, DNA, QUANT March 12, 2019 T CELL, ABSOLUTE COUNT/RATIO March 12, 2019 INSTRUCTIONS MEDICATIONS ADMINISTERED No Known Medications MEDICAL [...] Rash and other nonspecific skin eruption (Inactive) Surgical History No Surgical history information
--- OUTSIDE RECORDS SUMMARY | 2019-04-11 02:28 | XMS REPORT ---
Author Author FLAKITO ALVES [facility] Address [address] [place] [address] Care Team Providers Care Director Financial Systems Name Role Phone FLAKITO ALVES Unavailable PROBLEMS Type Condition ICD9-CM Code QZW67-CF Code Onset Dates Condition Status SNOMED Code Problem Asymptomatic human immunodeficiency virus [HIV] infection status Z21 Active 68364119 Problem Mood disorder F39 Active 13973404 Problem Encounter for long-term (current) use of other medications V58.69 Active 522564321 Problem Screening examination for venereal disease V74.5 Active 369797274 Problem Anxiety F41.9 Active 40945003 Problem Asymptomatic human immunodeficiency virus (HIV) infection status V08 Active 31598889 ALLERGIES No Information ENCOUNTERS Encounter Location Date Diagnosis [facility] [address] [address] Aug, [facility] [address] [address] Jul, Acute bronchitis J20.9 [place] [address] [address] Mar, [facility] [address] [address] Nov, Acute pain of left shoulder M25.512 ; Anemia, unspecified type D64.9 and Right wrist pain M25.531 [facility] [address] [address] Oct, [facility] [address] [address] Oct, Muscle cramping R25.2 and Cellulitis of upper extremity, unspecified laterality L03.119 [place] [address] [place] [address] Jul, [facility] [address] [facility] [id number] [place] [address] Jul, [facility] [address] [place] [id number] [place] [address] May, Asymptomatic human immunodeficiency virus [HIV] infection status Z21 [facility] [id number] [place] [address] Mar, Mood disorder F39 [facility] [address] [facility] [address] Mar, Mood disorder F39 and Vaginal candidiasis B37.3 [facility] [address] [address] December, [facility] [address] [address] Nov, [facility] [address], [place] [address] Nov, [facility] [address], [place] [address] Oct, [facility] [address] [place] [id number] Oct, Anxiety F41.9 [facility] [id number] [place] [address] Sep, [facility] [address], [place] [address] Aug, [facility] [address] [facility] [id number] [place] [address] Jun, [facility] [address] [place] [id number] [place] [address] Apr, [facility] [address] [facility] [id number] [place] [address] Mar, [facility] [address], [place] [address] December, [facility] [address] [place] [id number] [address] Sep, [facility] [address], [place] [address] Jun, [facility] [address], [place] [address] Mar, [facility] [address] [place] [address] Jul, [facility] [address], [place] [address] Jul, [facility] [address], [place] [address] Jun, [facility] [address], [place] [address] May, [facility] [address], [place] [address] May, IMMUNIZATIONS No Known Immunizations SOCIAL HISTORY Never Assessed REASON FOR VISIT [facility] PLAN OF CARE VITAL SIGNS MEDICATIONS Unknown Medications RESULTS No Results PROCEDURES No Known procedures INSTRUCTIONS MEDICATIONS ADMINISTERED No Known Medications MEDICAL (GENERAL) HISTORY Type Description Date Medical History HIV positive since 2007 Medical History History of IV drug use Surgical History No Surgical history information Hospitalization History R[facility] hand [facility]ul[facility] 10/2017
--- OUTSIDE RECORDS SUMMARY | 2019-04-11 02:28 | XMS REPORT ---
Author Author GANESH LOTT Organization [facility] Address [address] [place] [address] Care Team Providers Care Permit Agent Name Role Phone GANESH LOTT Unavailable PROBLEMS Type Condition ICD9-CM Code HIW59-NJ Code Onset Dates Condition Status SNOMED Code Problem Asymptomatic human immunodeficiency virus [HIV] infection status Z21 Active 75376714 Problem Mood disorder F39 Active 31064329 Problem Encounter for long-term (current) use of other medications V58.69 Active 021126849 Problem Screening examination for venereal disease V74.5 Active 697467015 Problem Anxiety F41.9 Active 82427399 Problem Asymptomatic human immunodeficiency virus (HIV) infection status V08 Active 01082912 ALLERGIES No Information ENCOUNTERS Encounter Location Date Diagnosis [facility] [address] [address] Aug, [facility] [address] [address] Jul, Acute bronchitis J20.9 [place] [address] [address] Mar, [facility] [address] [address] Nov, Acute pain of left shoulder M25.512 ; Anemia, unspecified type D64.9 and Right wrist pain M25.531 [place] [address] [address] Oct, [facility] [address] [address] Oct, Muscle cramping R25.2 and Cellulitis of upper extremity, unspecified laterality L03.119 [place] [address] [place] [address] Jul, [facility] [address] [place] [id number] [place] [address] Jul, [facility] [id number] [place] [address] May, Asymptomatic human immunodeficiency virus [HIV] infection status Z21 [facility] [id number] [place] [address] Mar, Mood disorder F39 [facility] [address] [place] [address] Mar, Mood disorder F39 and Vaginal candidiasis B37.3 [facility] [id number] [place] [address] December, [facility] [address], [place] [address] Nov, [facility] [address], [place] [address] Nov, [facility] [address], [place] [address] Oct, [facility] [address] [place] [id number] Oct, Anxiety F41.9 [facility] [id number] [place] [address] Sep, [facility] [address]005[address], [place] [address] Aug, [facility] [address] [place] [id number] [place] [address] Jun, [facility] [id number] [place] [address] Apr, [facility] [address] [facility] [id number] [place] [address] Mar, [facility] [address], [place] [address] December, [facility] [address] [place] [id number] [address] Sep, [facility] [address], [place] [address] Jun, [facility] [address], [place] [address] Mar, [facility] [address] [place] [id number] [place] [address] Jul, [facility] [address], [place] [address] Jul, [facility] [address] [place] [address] Jun, [facility] [address], [place] [address] May, [facility] [address], [place] [address] May, IMMUNIZATIONS No Known Immunizations SOCIAL HISTORY Never Assessed REASON FOR VISIT PLAN OF CARE VITAL SIGNS MEDICATIONS Unknown Medications RESULTS No Results PROCEDURES No Known procedures INSTRUCTIONS MEDICATIONS ADMINISTERED No Known Medications MEDICAL (GENERAL) HISTORY Type Description Date Medical History HIV positive since 2007 Medical History History of IV drug use Surgical History No Surgical history information Hospitalization History Rt hand cellulitis-[facility] 10/2017
--- OUTSIDE RECORDS SUMMARY | 2019-04-11 02:28 | XMS REPORT ---
Author Author MARIA EUGENIA RUST [facility] Address [address] [place] [address] Care Team Providers Care Regulatory Submissions Associate Name Role Phone MARIA EUGENIA RUST Unavailable PROBLEMS Type Condition ICD9-CM Code RNU35-BO Code Onset Dates Condition Status SNOMED Code Problem Mood disorder F39 Active 00263707 Problem Asymptomatic human immunodeficiency virus [HIV] infection status Z21 Active 36773695 Problem Screening examination for venereal disease V74.5 Active 768041256 Problem Encounter for long-term (current) use of other medications V58.69 Active 756595756 Problem Asymptomatic human immunodeficiency virus (HIV) infection status V08 Active 13085788 Problem Anxiety F41.9 Active 45111662 ALLERGIES No Information ENCOUNTERS Encounter Location Date Diagnosis [facility] [address] [address] Jan, [place] [address] [address] Aug, [facility] [address] [id number] [place] [address] Jul, Acute bronchitis J20.9 [facility] [address] [address] Mar, [facility] [address] [place] [id number] [place] [address] Nov, Acute pain of left shoulder M25.512 ; Anemia, unspecified type D64.9 and Right wrist pain M25.531 [facility] [address] [id number] [place] [address] Oct, [facility] [address] [address] Oct, Muscle cramping R25.2 and Cellulitis of upper extremity, unspecified laterality L03.119 [facility] [address], [place] [address] Jul, [facility] [address] [facility] [id number] [address] Jul, [facility] [id number] [place] [address] May, Asymptomatic human immunodeficiency virus [HIV] infection status Z21 [facility] [address], [place] [address] Mar, Mood disorder F39 [facility] [address] [place] [id number] Mar, Mood disorder F39 and Vaginal candidiasis B37.3 [facility] [address] [place] [id number] [place] [address] December, [facility] [address] [place] [id number] [place] [address] Nov, [facility] [address], [place] [address] Nov, [facility] [address] [place] [address] Oct, [facility] [address] [place] [address] Oct, Anxiety F41.9 [facility] [address], [place] [address] Sep, [facility] [address], [place] [address] Aug, [facility] [address] [place] [id number], [place] [address] Jun, [facility] [address] [place] [id number] [address] Apr, [facility] [address] [place] [id number], [place] [address] Mar, [facility] [address] [place] [id number], [place] [address] December, [facility] [address] [facility] [id number], [place] [address] Sep, [facility] [address] [place] [id number], [place] [address] Jun, [facility] [address], [place] [address] Mar, [facility] [address] [place] [id number], [place] [address] Jul, [facility] [address], [place] [address] Jul, [facility] [id number], [place] [address] Jun, [facility] [address], [place] [address] May, [facility] [address] [place] [id number], [place] [address] May, IMMUNIZATIONS No Known Immunizations SOCIAL HISTORY Never Assessed REASON FOR VISIT PLAN OF CARE VITAL SIGNS MEDICATIONS Unknown Medications RESULTS No Results PROCEDURES Procedure Date Ordered Result Body Site BLOOD SEROLOGY, QUALITATIVE May 21, 2012 T CELL, ABSOLUTE COUNT/RATIO May 21, 2012 LIPID PANEL May 21, 2012 COMPREHEN METABOLIC PANEL May 21, 2012 HIV-1, DNA, QUANT May 21, 2012 VENIPUNCT, ROUTINE* May 21, 2012 INSTRUCTIONS MEDICATIONS ADMINISTERED No Known Medications MEDICAL (GENERAL) HISTORY Type Description Date Medical History HIV positive since 2007 Medical History History of IV drug use Surgical History No Surgical history information Hospitalization History Rt hand [facility]ulitis-[facility] 10/2017
--- OUTSIDE RECORDS SUMMARY | 2019-04-11 02:28 | XMS REPORT ---
Author Author Migration, Doctor Organization [facility] Address Unknown Phone Unavailable Care Team Providers Care Bracelet Form Coverer Name Role Phone Migration, Doctor Unavailable Unavailable PROBLEMS Type Condition ICD9-CM Code RBL26-VU Code Onset Dates Condition Status SNOMED Code Problem Mood disorder F39 Active 10277624 Problem Asymptomatic human immunodeficiency virus [HIV] infection status Z21 Active 15708654 Problem Screening examination for venereal disease V74.5 Active 278849955 Problem Encounter for long-term (current) use of other medications V58.69 Active 177681274 Problem Asymptomatic human immunodeficiency virus (HIV) infection status V08 Active 91305655 Problem Anxiety F41.9 Active 40256451 ALLERGIES No Information ENCOUNTERS Encounter Location Date Diagnosis [place] [address] [address] Aug, [facility] [address] [place] [id number] [place] [address] Jul, Acute bronchitis J20.9 [place] [address] [address] Mar, [place] [address] [place] [id number] [place] [address] Nov, Acute pain of left shoulder M25.512 ; Anemia, unspecified type D64.9 and Right wrist pain M25.531 [place] [address] [place] [id number] [place] [address] Oct, [facility] [address] [address] Oct, Muscle cramping R25.2 and Cellulitis of upper extremity, unspecified laterality L03.119 [place] [address] [address] Jul, [place] [address] [facility] [id number] [place] [address] Jul, [facility] [address] [facility] [id number] [address] May, Asymptomatic human immunodeficiency virus [HIV] infection status Z21 [facility] [address] [facility] [id number] [place] [address] Mar, Mood disorder F39 [facility] [address] [place] [id number] Mar, Mood disorder F39 and Vaginal candidiasis B37.3 [facility] [address] [facility] [id number] [place] [address] December, [facility] [address] [place] [id number] [address] Nov, [facility] [address] [place] [id number] [address] Nov, [facility] [address] [facility] [id number] [address] Oct, [facility] [address] [facility] [id number] Oct, Anxiety F41.9 [facility] [address] [place] [id number] [address] Sep, [facility] [address] [facility] [id number] [address] Aug, [facility] [address] [facility] [id number], [place] [address] Jun, [facility] [address] [facility] [id number] [place] [address] Apr, [facility] [address] [facility] [id number] [place] [address] Mar, [facility] [address] [facility] [id number] [place] [address] December, [facility] [address] [place] [id number] [address] Sep, [facility] [address]00565100[place] [address] Jun, [facility] [address]00565100[place] [address] Mar, [facility] [address]00565100[place] [address] Jul, [facility] [address] [place] [id number] [place] [address] Jul, [facility] [address] [place] [address] Jun, [facility] [address]005[address] [address] May, [facility] [address]00565100[place], [place] [address] May, IMMUNIZATIONS No Known Immunizations SOCIAL HISTORY Never Assessed REASON FOR VISIT [facility] PLAN OF CARE VITAL SIGNS MEDICATIONS Unknown Medications RESULTS No Results PROCEDURES No Known procedures INSTRUCTIONS MEDICATIONS ADMINISTERED No Known Medications MEDICAL (GENERAL) HISTORY Type Description Date Medical History HIV positive since 2007 Medical History History of IV drug use Surgical History No Surgical history information Hospitalization History R[facility] 10/2017
--- OUTSIDE RECORDS SUMMARY | 2019-04-11 02:28 | XMS REPORT ---
Author Author GANESH LOTT Organization [facility] Address [address] [place] [address] Care Team Providers Care Warehouse Selector Name Role Phone GANESH LOTT Unavailable PROBLEMS Type Condition ICD9-CM Code SPE55-GF Code Onset Dates Condition Status SNOMED Code Problem Asymptomatic human immunodeficiency virus [HIV] infection status Z21 Active 01367233 Problem Mood disorder F39 Active 49922940 Problem Encounter for long-term (current) use of other medications V58.69 Active 871506879 Problem Screening examination for venereal disease V74.5 Active 313620953 Problem Anxiety F41.9 Active 39852677 Problem Asymptomatic human immunodeficiency virus (HIV) infection status V08 Active 53744167 ALLERGIES No Information ENCOUNTERS Encounter Location Date Diagnosis [facility] [address] [address] Aug, [facility] [address] [address] Jul, Acute bronchitis J20.9 [place] [address] [address] Mar, [facility] [address] [address] Nov, Acute pain of left shoulder M25.512 ; Anemia, unspecified type D64.9 and Right wrist pain M25.531 [place] [address] [address] Oct, [facility] [address] [address] Oct, Muscle cramping R25.2 and Cellulitis of upper extremity, unspecified laterality L03.119 [place] [address] [place] [address] Jul, [facility] [address] [place] [id number] [place] [address] Jul, [facility] [address] [place] [address] May, Asymptomatic human immunodeficiency virus [HIV] infection status Z21 [facility] [address] [place] [address] Mar, Mood disorder F39 [facility] [address] [place] [id number] Mar, Mood disorder F39 and Vaginal candidiasis B37.3 [facility] [address] [place] [address] December, [facility] [address]00565100[place] [address] Nov, [facility] [address]00565100[place] [address] Nov, [facility] [address]005[address] [address] Oct, [facility] [address] [place] [id number] Oct, Anxiety F41.9 [facility] [address] [place] [address] Sep, [facility] [address]005[address] [address] Aug, [facility] [address] [place] [id number] [place] [address] Jun, [facility] [address] [place] [address] Apr, [facility] [address] [facility] [id number] [place] [address] Mar, [facility] [address] [address] December, [facility] [address] [place] [id number] [address] Sep, [facility] [address]00565100[place] [address] Jun, [facility] [id number] [address] Mar, [facility] [address] [place] [id number] [place] [address] Jul, [facility] [address]00565100[place] [address] Jul, [facility] [id number] [place] [id number] Jun, [facility] [id number] [address] May, [facility] [id number] [address] May, IMMUNIZATIONS No Known Immunizations SOCIAL HISTORY Never Assessed REASON FOR VISIT PLAN OF CARE VITAL SIGNS MEDICATIONS Unknown Medications RESULTS No Results PROCEDURES No Known procedures INSTRUCTIONS MEDICATIONS ADMINISTERED No Known Medications MEDICAL (GENERAL) HISTORY Type Description Date Medical History HIV positive since 2007 Medical History History of IV drug use Surgical History No Surgical history information Hospitalization History Rt hand cellulitis-[facility] 10/2017
--- OUTSIDE RECORDS SUMMARY | 2019-04-11 02:28 | XMS REPORT ---
Author Author CARLOS PADILLA [facility] Address [address] [place] [address] Care Team Providers Care Steam Generating Powerplant Mechanic Name Role Phone CARLOS PADILLA Unavailable PROBLEMS Type Condition ICD9-CM Code VZI35-YT Code Onset Dates Condition Status SNOMED Code Problem Asymptomatic human immunodeficiency virus [HIV] infection status Z21 Active 09956434 Problem Mood disorder F39 Active 67986071 Problem Encounter for long-term (current) use of other medications V58.69 Active 736497084 Problem Screening examination for venereal disease V74.5 Active 655064857 Problem Anxiety F41.9 Active 25053370 Problem Asymptomatic human immunodeficiency virus (HIV) infection status V08 Active 89415558 ALLERGIES No Known Allergies ENCOUNTERS Encounter Location Date Diagnosis [facility] [address] [address] Aug, [facility] [address] [address] Jul, Acute bronchitis J20.9 [place] [address] [address] Mar, [facility] [address] [address] Nov, Acute pain of left shoulder M25.512 ; Anemia, unspecified type D64.9 and Right wrist pain M25.531 [place] [address] [address] Oct, [facility] [address] [address] Oct, Muscle cramping R25.2 and Cellulitis of upper extremity, unspecified laterality L03.119 [place] [address] [address] [facility] [id number] [place] [address] Jul, [facility] [address] [facility] [id number] [place] [address] Jul, [facility] [address] [facility] [id number] [place] [address] May, Asymptomatic human immunodeficiency virus [HIV] infection status Z21 [facility] [address] [facility] [id number] [place] [address] Mar, Mood disorder F39 [facility] [address] [place] [id number] Mar, Mood disorder F39 and Vaginal candidiasis B37.3 [facility] [id number] [address] December, [facility] [address] [address] Nov, [facility] [address] [place] [id number] [address] Nov, [facility] [address] [address] Oct, [facility] [address] [place] [id number] Oct, Anxiety F41.9 [facility] [address] [address] Sep, [facility] [address] [place] [id number] [address] Aug, [facility] [address] [facility] [id number] [place] [address] Jun, [facility] [address] [facility] [id number] [place] [address] Apr, [facility] [address] [place] [id number] [place] [address] Mar, [facility] [address] [facility] [id number] [address] December, [facility] [address] [address] Sep, [facility] [address] [address] Jun, [facility] [address] [place] [id number] [address] Mar, [facility] [address] [place] [id number] [place] [address] Jul, [facility] [address] [place] [id number] [place] [address] Jul, [facility] [address] [place] [id number] [place] [address] Jun, [facility] [address] [place] [id number] [place] [address] May, [facility] [address] [address] May, IMMUNIZATIONS No Known Immunizations SOCIAL HISTORY Never Assessed REASON FOR VISIT Congestion/Cough/headache/fever. Pt c/o that she has been coughing up green colo red sputum x 2 wks-awoods PLAN OF CARE Activity Details Follow Up if not improving with PCP or reg follow up Reason: VITAL SIGNS Height 64 in 2018-07-10 Weight 145.4 lbs 2018-07-10 Temperature 98.1 degrees Fahrenheit 2018-07-10 Heart Rate 70 bpm 2018-07-10 Respiratory Rate 18 2018-07-10 BMI 24.96 kg/m2 2018-07-10 Blood pressure systolic 110 mmHg 2018-07-10 Blood pressure diastolic 72 mmHg 2018-07-10 MEDICATIONS Medication Instructions Dosage Frequency Start Date End Date Duration Status Azithromycin 500 MG Orally Once a day as directed 24h Jul, Jul, 3 days Active Mirtazapine 30 MG Orally Once a day 1 tablet at bedtime 24h Sep, Not-Taking Albuterol Sulfate HFA 108 (90 Base) MCG/ACT Inhalation every 4-6 hours 2 puffs as needed Jul, 30 days Active Advil 200 mg Orally Three times a day 4 tablets as needed 8h Active Aleve 220 MG Orally every 8 hrs 2 tablets with food or milk as needed 8h Active Cyclobenzaprine HCl 5 mg Orally Three times a day PRN pain 1 tablet as needed Nov, Active Lexapro 10 MG Orally Once a day 1 tablet 24h December, 30 day(s) Not-Taking Genvoya 261-882-262-10 MG Orally Once a day 1 tablet 24h 30 Active RESULTS No Results PROCEDURES No Known procedures INSTRUCTIONS MEDICATIONS ADMINISTERED No Known Medications MEDICAL (GENERAL) HISTORY Type Description Date Medical History HIV positive since 2007 Medical History History of IV drug use Surgical History No Surgical history information Hospitalization History Rt hand cellulitis-[facility] 10/2017
--- OUTSIDE RECORDS SUMMARY | 2019-04-11 02:29 | XMS REPORT ---
Author Author Meg Wells [facility] Address [address] [place] [id number] Care Team Providers Care Wildlife Policy Professional Name Role Phone Meg Wells Unavailable PROBLEMS Type Condition ICD9-CM Code SXP10-SZ Code Onset Dates Condition Status SNOMED Code Problem Nicotine dependence, cigarettes, uncomplicated F17.210 Active 63804802 Problem Moderate episode of recurrent major depressive disorder F33.1 Active 692136233 Problem skilled nursing current use of opiate analgesic Z79.891 Active 597882450 Problem Generalized anxiety disorder F41.1 Active 19819914 Problem Low back pain M54.5 Active 517868275 Problem Asymptomatic human immunodeficiency virus (HIV) infection status Z21 Active 64775988 Problem GERD (gastroesophageal reflux disease) K21.9 Active 784930427 ALLERGIES No Known Allergies ENCOUNTERS Encounter Location Date Diagnosis [address] [id number] Mar, Asymptomatic human immunodeficiency virus (HIV) infection status Z21 and Generalized anxiety disorder F41.[address] [address] Oct, Asymptomatic human immunodeficiency virus (HIV) infection status Z21 [address] [address] Jul, [address] [id number] Jul, Asymptomatic human immunodeficiency virus (HIV) infection status Z21 ; Influenza vaccine needed Z23 ; Moderate episode of recurrent major depressive disorder F33.1 and Wasting syndrome R64 [facility] [address] [place] [id number] Aug, Asymptomatic human immunodeficiency virus (HIV) infection status Z21 ; 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 [address] [place] [address] Oct, [address] [id number] Sep, Asymptomatic human immunodeficiency virus [HIV] infection status Z21 ; Smoker F17.200 ; GERD (gastroesophageal reflux disease) K21.9 ; Low back pain M54.5 ; Migraine, unspecified, not intractable, without status migrainosus G43.909 and Generalized anxiety disorder F41.[address] [id number] Jun, Needs flu shot Z23 ; Asymptomatic human immunodeficiency virus [HIV] infection status Z21 and Major depressive disorder, single episode, unspecified F32.[address] [id number] Mar, Asymptomatic human immunodeficiency virus (HIV) infection status V08 and Chronic prescription opiate use V58.69 [facility] [address] [facility] [address] [place] [id number] Jan, [address] [id number] Sep, Asymptomatic human immunodeficiency virus (HIV) infection status V08 ; Chronic prescription opiate use V58.[address] [facility] [address] [place] [address] Sep, Migraine, unspecified without mention of intractable migraine without mention of status migrainosus 346.90 and Insomnia, unspecified [address] [id number] Jun, Human immunodeficiency virus (HIV) disease 042 ; Flu vaccine need V04.81 and Need for pneumococcal vaccination V03.82 [facility] [place] [facility] [address] [facility] [address] [place] [id number] May, [facility] [place] [facility] [address] [facility] [address] [place] [id number] Apr, [facility] [place] [facility] [address] [facility] [address] [place] [id number] Apr, [facility] [address] [facility] [address] [place] [id number] December, [facility] [address] [place] [facility] [place] [address] Sep, [facility] [address] [facility] [place] [address] Jul, [facility] [address] [facility] [place] [address] Jun, [facility] [address] [facility] [place] [address] Nov, [facility] [address] [facility] [place] [address] Sep, [facility] [address] [facility] [place] [address] Aug, [facility] [address] [facility] [place] [address] December, [facility] [address] [facility] [place] [address] Sep, IMMUNIZATIONS No Known Immunizations SOCIAL HISTORY Never Assessed REASON FOR VISIT PLAN OF CARE Activity Details Follow Up 3 Months Reason: VITAL SIGNS Height 64 in 2018-03-20 Weight 144.4 lbs 2018-03-20 Temperature 97.9 degrees Fahrenheit 2018-03-20 Heart Rate 101 /min 2018-03-20 Respiratory Rate 18 /min 2018-03-20 Oximetry 98 % 2018-03-20 BMI 24.78 kg/m2 2018-03-20 Blood pressure systolic 116 mm Hg 2018-03-20 Blood pressure diastolic 84 mm Hg 2018-03-20 MEDICATIONS Medication Instructions Dosage Frequency Start Date End Date Duration Status Citalopram Hydrobromide 20 MG Orally Once a day 1 tablet 24h Jul, 30 day(s) Active Remeron 30 MG Oral Once a day 1 tablet before bedtime in the evening 24h Sep, 30 days Active Genvoya 150 mg/150 mg/200/mg/10 mg Oral Once a day 1 tablet 24h December, 30 days Active Agunmuyldb-EPGA-Qcxfxugi 50-325-40 MG TAKE ONE TABLET BY MOUTH ONCE DAILY NEEDED ; MAY REPEAT ONE TIME IN 4 HOURS 30 Active RESULTS Name Result Date Reference Range Human Immunodeficiency Virus (HIV-1), Quantitative, Real-time PCR (graph) 33514 2018-03-20 HIV-1 RNA by PCR <20 log10 HIV-1 RNA TNP Rapid Plasma Reagin (RPR), Test w/ Reflex to Quant RPR/Confirm Treponema pallidum Antibodies 09854 2018-03-20 RPR Non Reactive Non Reactive Metabolic Panel (14), Comprehensive (CMP) 30956 2018-03-20 Glucose 107 65-99 BUN 8 6-24 Creatinine 0.80 0.57-1.00 eGFR If NonAfricn Am 92 >59 eGFR If Africn Am 106 >59 BUN/Creatinine Ratio 10 9-23 Sodium 139 134-144 Potassium 4.0 3.5-5.2 Chloride 103 96-106 Carbon Dioxide, Total 22 20-29 Calcium 9.5 8.7-10.2 Protein, Total 7.6 6.0-8.5 Albumin 3.9 3.5-5.5 Globulin, Total 3.7 1.5-4.5 A/G Ratio 1.1 1.2-2.2 Bilirubin, Total <0.2 0.0-1.2 Alkaline Phosphatase 59 39-117 AST (SGOT) 28 0-40 ALT (SGPT) 29 0-32 CD4/CD8 Ratio Profile [id number] 2018-03-20 Absolute CD 4 [place] 057 896-4929 % CD 4 Pos. Lymph. 39.2 30.8-58.5 Abs. CD 8 Suppressor 534 109-897 % CD 8 Pos. Lymph. 35.6 12.0-35.5 CD4/CD8 Ratio 1.10 0.92-3.72 WBC 3.9 3.4-10.8 RBC 4.28 3.77-5.28 Hemoglobin 12.9 11.1-15.9 Hematocrit 40.3 34.0-46.6 MCV 94 79-97 MCH 30.1 26.6-33.0 MCHC 32.0 31.5-35.7 RDW 15.1 12.3-15.4 Platelets 280 150-379 Neutrophils 50 Not Estab. Lymphs 39 Not Estab. Monocytes 8 Not Estab. Eos 2 Not Estab. Basos 1 Not Estab. Immature Cells TEST ENGINEER Neutrophils (Absolute) 2.0 1.4-7.0 Lymphs (Absolute) 1.5 0.7-3.1 Monocytes(Absolute) 0.3 0.1-0.9 Eos (Absolute) 0.1 0.0-0.4 Baso (Absolute) 0.0 0.0-0.2 Immature Granulocytes 0 Not Estab. Immature Grans (Abs) 0.0 0.0-0.1 NRBC TEST ENGINEER Hematology Comments: TEST ENGINEER PROCEDURES Procedure Date Ordered Result Body Site T CELL, ABSOLUTE COUNT/RATIO March 20, 2018 HIV-1, DNA, QUANT March 20, 2018 BLOOD SEROLOGY, QUALITATIVE March 20, 2018 COMPREHEN METABOLIC PANEL March 20, 2018 INSTRUCTIONS MEDICATIONS ADMINISTERED No Known Medications [...]
--- OUTSIDE RECORDS SUMMARY | 2019-04-11 02:29 | XMS REPORT ---
Author Author JACLYN ISLAS Organization [facility] Address [address] [place] [address] Care Team Providers Care Day Spa Manager Name Role Phone ISMAELKENYETTABAKARI JACLYN Unavailable PROBLEMS Type Condition ICD9-CM Code IXD69-HI Code Onset Dates Condition Status SNOMED Code Problem Asymptomatic human immunodeficiency virus [HIV] infection status Z21 Active 86488708 Problem Mood disorder F39 Active 43455660 Problem Encounter for long-term (current) use of other medications V58.69 Active 573462395 Problem Screening examination for venereal disease V74.5 Active 011141900 Problem Anxiety F41.9 Active 69030577 Problem Asymptomatic human immunodeficiency virus (HIV) infection status V08 Active 31911429 ALLERGIES No Information ENCOUNTERS Encounter Location Date Diagnosis [facility] [address] [place] [id number] [place] [address] Mar, [facility] [address] [place] [id number] [place] [address] Nov, Acute pain of left shoulder M25.512 ; Anemia, unspecified type D64.9 and Right wrist pain M25.531 [facility] [address] [place] [id number] [place] [address] Oct, [facility] [address] [place] [id number] [place] [address] Oct, Muscle cramping R25.2 and Cellulitis of upper extremity, unspecified laterality L03.119 [facility] [address] [place] [id number] [place] [address] Jul, [facility] [address] [place] [id number] [place] [address] Jul, [facility] [address] [place] [address] May, Asymptomatic human immunodeficiency virus [HIV] infection status Z21 [facility] [address] [facility] [id number] [place] [address] Mar, Mood disorder F39 [facility] [address] [place] [id number] Mar, Mood disorder F39 and Vaginal candidiasis B37.3 [facility] [address] [facility] [id number] [place] [address] December, [facility] [address] [facility] [id number] [place] [address] Nov, [facility] [address] [facility] [id number] [place] [address] Nov, [facility] [address] [place] [id number] [place] [address] Oct, [facility] [address] [facility] [place] [id number] Oct, Anxiety F41.9 [facility] [address] [facility] [id number] [place] [address] Sep, [facility] [address] [facility] [id number], [place] [address] Aug, [facility] [address] [facility] [id number], [place] [address] Jun, [facility] [address] [facility] [id number], [place] [address] Apr, [facility] [place] [facility] [address] [facility] [id number] [place] [address] Mar, [facility] [address] [facility] [id number] [place] [address] December, [facility] [address] [facility] [id number], [place] [address] Sep, [facility] [address] [facility] [id number], [place] [address] Jun, [facility] [address] [facility] [id number], [place] [address] Mar, [facility] [address] [facility] [id number], [place] [address] Jul, [facility] [address] [facility] [id number], [place] [address] Jul, [facility] [address] [facility] [id number], [place] [address] Jun, [facility] [address] [facility] [id number], [place] [address] May, [facility] [address] [facility] [id number], [place] [address] May, IMMUNIZATIONS No Known Immunizations SOCIAL HISTORY Never Assessed REASON FOR VISIT Hospital admit/DC PLAN OF CARE VITAL SIGNS MEDICATIONS Medication Instructions Dosage Frequency Start Date End Date Duration Status Lexapro 10 MG Orally Once a day 1 tablet 24h December, 30 day(s) Not-Taking Keflex 500 mg Orally 3 times a day 1 capsule 8h Oct, Oct, Active Genvoya 213-004-951-10 MG Orally Once a day 1 tablet 24h 30 Active Mirtazapine 30 MG Orally Once a day 1 tablet at bedtime 24h Sep, Not-Taking Advil 200 mg Orally Three times a day 4 tablets as needed 8h Active Aleve 220 MG Orally every 8 hrs 2 tablets with food or milk as needed 8h Active RESULTS No Results PROCEDURES No Known procedures INSTRUCTIONS MEDICATIONS ADMINISTERED No Known Medications MEDICAL (GENERAL) HISTORY Type Description Date Medical History HIV positive since 2007 Medical History History of IV drug use Hospitalization History Rt hand cellulitis-[facility] 10/2017
--- OUTSIDE RECORDS SUMMARY | 2019-04-11 02:29 | XMS REPORT ---
Author Author LOU Perrin Organization [facility] Address [address] [place] [address] Care Team Providers Care Display Artist Name Role Phone LUO Perrin Unavailable PROBLEMS Type Condition ICD9-CM Code ABB22-DO Code Onset Dates Condition Status SNOMED Code Problem Asymptomatic human immunodeficiency virus [HIV] infection status Z21 Active 85481238 Problem Mood disorder F39 Active 19606074 Problem Encounter for long-term (current) use of other medications V58.69 Active 590402139 Problem Screening examination for venereal disease V74.5 Active 721290306 Problem Anxiety F41.9 Active 57416079 Problem Asymptomatic human immunodeficiency virus (HIV) infection status V08 Active 80548265 ALLERGIES No Known Allergies ENCOUNTERS Encounter Location Date Diagnosis [facility] [id number] [place] [address] Mar, [facility] [id number] [place] [address] Nov, Acute pain of left shoulder M25.512 ; Anemia, unspecified type D64.9 and Right wrist pain M25.531 [facility] [id number] [place] [address] Oct, [facility] [id number] [place] [address] Oct, Muscle cramping R25.2 and Cellulitis of upper extremity, unspecified laterality L03.119 [facility] [id number] [place] [address] Jul, [facility] [id number] [place] [address] Jul, [facility] [address] [id number] [place] [address] May, Asymptomatic human immunodeficiency virus [HIV] infection status Z21 [facility] [address] [facility] [id number] [place] [address] Mar, Mood disorder F39 [facility] [address] [place] [id number] Mar, Mood disorder F39 and Vaginal candidiasis B37.3 [facility] [address] [facility] [id number] [place] [address] December, [facility] [address] [facility] [id number] [place] [address] Nov, [facility] [address] [facility] [id number] [place] [address] Nov, [facility] [address] [id number] [address] Oct, [facility] [address] [facility] [place] [id number] Oct, Anxiety F41.9 [facility] [address] [facility] [id number] [place] [address] Sep, [facility] [address] [facility] [id number], [place] [address] Aug, [facility] [address] [facility] [id number], [place] [address] Jun, [facility] [address] [facility] [id number], [place] [address] Apr, [facility] [place] [facility] [address] [facility] [id number] [place] [address] Mar, [facility] [place] [facility] [address] [facility] [id number] [place] [address] December, [facility] [place] [facility] [address] [facility] [id number], [place] [address] Sep, [facility] [address] [facility] [id number], [place] [address] Jun, [facility] [address] [facility] [id number], [place] [address] Mar, [facility] [address] [id number] [address] Jul, [facility] [address] [id number], [place] [address] Jul, [facility] [address] [id number], [place] [address] Jun, [facility] [address] [id number], [place] [address] May, [facility] [address] [id number], [place] [address] May, IMMUNIZATIONS No Known Immunizations SOCIAL HISTORY Never Assessed REASON FOR VISIT Hospital f/u, right hand swelling-Baylis LARIS[facility] PLAN OF CARE Activity Details Follow Up pending lab test Reason: VITAL SIGNS Height 64 in 2017-12-03 Weight 134.8 lbs 2017-12-03 Temperature 98.1 degrees Fahrenheit 2017-12-03 Heart Rate 72 bpm 2017-12-03 Respiratory Rate 18 2017-12-03 BMI 23.14 kg/m2 2017-12-03 Blood pressure systolic 124 mmHg 2017-12-03 Blood pressure diastolic 76 mmHg 2017-12-03 MEDICATIONS Medication Instructions Dosage Frequency Start Date End Date Duration Status Genvoya 922-460-402-10 MG Orally Once a day 1 tablet 24h 30 Active Lexapro 10 MG Orally Once a day 1 tablet 24h December, 30 day(s) Not-Taking Cyclobenzaprine HCl 5 mg Orally Three times a day PRN pain 1 tablet as needed Nov, Active Aleve 220 MG Orally every 8 hrs 2 tablets with food or milk as needed 8h Active Advil 200 mg Orally Three times a day 4 tablets as needed 8h Active Mirtazapine 30 MG Orally Once a day 1 tablet at bedtime 24h 20 Sep, 2016 Not-Taking RESULTS Name Result Date Reference Range IRON, TIBC, FERRITIN PANEL 2017-12-03 IRON, TOTAL 31 40-190 IRON BINDING CAPACITY 321 250-450 % SATURATION 10 11-50 FERRITIN 26 10-232 CBC 2017-12-03 WHITE BLOOD CELL COUNT 4.1 3.8-10.8 RED BLOOD CELL COUNT 4.05 3.80-5.10 HEMOGLOBIN 12.3 11.7-15.5 HEMATOCRIT 36.3 35.0-45.0 MCV 89.6 80.0-100.0 MCH 30.4 27.0-33.0 MCHC 33.9 32.0-36.0 RDW 12.9 11.0-15.0 PLATELET COUNT 434 140-400 MPV 8.9 7.5-12.5 ABSOLUTE NEUTROPHILS [phone] ABSOLUTE LYMPHOCYTES 6835 356-6281 ABSOLUTE MONOCYTES 332 200-950 ABSOLUTE EOSINOPHILS 70 15-500 ABSOLUTE BASOPHILS 70 0-200 NEUTROPHILS 50.1 LYMPHOCYTES 38.4 MONOCYTES 8.1 EOSINOPHILS 1.7 BASOPHILS 1.7 PROCEDURES Procedure Date Ordered Result Body Site COMPLETE CBC W/AUTO DIFF WBC December 03, 2017 IRON BINDING TEST December 03, 2017 ASSAY OF FERRITIN December 03, 2017 ASSAY OF IRON December 03, 2017 VENIPUNCT, ROUTINE* December 03, 2017 INSTRUCTIONS MEDICATIONS ADMINISTERED No Known Medications MEDICAL (GENERAL) HISTORY Type Description Date Medical History HIV positive since 2007 Medical History History of IV drug use Hospitalization History Rt hand [facility]ul[facility] 10/2017
--- OUTSIDE RECORDS SUMMARY | 2019-04-11 02:29 | XMS REPORT ---
Author Author GANESH LOTT Organization [facility] Address [address] [place] [address] Care Team Providers Care Faculty Support Coordinator Name Role Phone GANESH LOTT Unavailable PROBLEMS Type Condition ICD9-CM Code [id number] Code Onset Dates Condition Status SNOMED Code Problem Asymptomatic human immunodeficiency virus [HIV] infection status Z21 Active 14916182 Problem Mood disorder F39 Active 88627948 Problem Encounter for long-term (current) use of other medications V58.69 Active 762205632 Problem Screening examination for venereal disease V74.5 Active 944495047 Problem Anxiety F41.9 Active 49202370 Problem Asymptomatic human immunodeficiency virus (HIV) infection status V08 Active 06335018 ALLERGIES No Information ENCOUNTERS Encounter Location Date Diagnosis [facility] [address] [address] December, [facility] [address] [address] December, [facility] [id number] [place] [address] Nov, Acute pain of left shoulder M25.512 ; Anemia, unspecified type D64.9 and Right wrist pain M25.531 [facility] [id number] [place] [address] Oct, [facility] [id number] [place] [address] Oct, Muscle cramping R25.2 and Cellulitis of upper extremity, unspecified laterality L03.119 [facility] [address] [address] Jul, [facility] [address] [address] Jul, [facility] [address] [facility] [id number] [place] [address] May, Asymptomatic human immunodeficiency virus [HIV] infection status Z21 [facility] [address] [id number] [place] [address] Mar, Mood disorder F39 [facility] [address] [facility] [place] [id number] Mar, Mood disorder F39 and Vaginal candidiasis B37.3 [facility] [address] [id number] [place] [address] December, [facility] [address] [facility] [id number] [place] [address] Nov, [facility] [address] [facility] [id number] [address] Nov, [facility] [address] [facility] [id number] [place] [address] Oct, [facility] [address] [id number] Oct, Anxiety F41.9 [facility] [address] [facility] [id number] [place] [address] Sep, [facility] [address] [facility] [id number], [place] [address] Aug, [facility] [address] [facility] [id number] [place] [address] Jun, [facility] [address] [facility] [id number] [place] [address] Apr, [facility] [address] [facility] [id number] [place] [address] Mar, [facility] [address] [facility] [id number] [place] [address] December, [facility] [address] [facility] [id number], [place] [address] Sep, [facility] [address] [facility] [id number], [place] [address] Jun, [facility] [address] [id number], [place] [address] Mar, [facility] [address] [facility] [id number], [place] [address] Jul, [facility] [address], [place] [address] Jul, [facility] [address] [id number], [place] [address] Jun, [facility] [address], [place] [address] May, [facility] [address] [id number], [place] [address] May, IMMUNIZATIONS No Known Immunizations SOCIAL HISTORY Never Assessed REASON FOR VISIT Intermediate PLAN OF CARE VITAL SIGNS Height 64 in 2017-03-18 Weight 137 lbs 2017-03-18 Heart Rate 60 bpm 2017-03-18 Respiratory Rate 18 2017-03-18 BMI 23.51 kg/m2 2017-03-18 Blood pressure systolic 104 mmHg 2017-03-18 Blood pressure diastolic 64 mmHg 2017-03-18 MEDICATIONS Medication Instructions Dosage Frequency Start Date End Date Duration Status Diflucan 100 mg Orally Once a day 1 tablet 24h Mar, Apr, 14 days Active Genvoya 166-426-275-10 MG Orally Once a day 1 tablet 24h Sep, Active Mirtazapine 30 MG Orally Once a day 1 tablet at bedtime 24h Sep, Active Lexapro 10 MG Orally Once a day 1 tablet 24h December, 30 day(s) Active RESULTS No Results PROCEDURES No Known procedures INSTRUCTIONS MEDICATIONS ADMINISTERED No Known Medications MEDICAL (GENERAL) HISTORY Type Description Date Medical History HIV positive since 2007 Medical History History of IV drug use Hospitalization History Rt hand cellulitis-[facility] 10/2017
--- OUTSIDE RECORDS SUMMARY | 2019-04-11 02:29 | XMS REPORT ---
Author Author NAE VELAZQUEZ [facility] Address [address] [place] [address] Care Team Providers Care Environmental Resource Specialist Name Role Phone NAE VELAZQUEZ Unavailable PROBLEMS Type Condition ICD9-CM Code [id number] Code Onset Dates Condition Status SNOMED Code Problem Asymptomatic human immunodeficiency virus [HIV] infection status Z21 Active 67600544 Problem Mood disorder F39 Active 94030965 Problem Encounter for long-term (current) use of other medications V58.69 Active 699811169 Problem Screening examination for venereal disease V74.5 Active 765670565 Problem Anxiety F41.9 Active 85065925 Problem Asymptomatic human immunodeficiency virus (HIV) infection status V08 Active 00633255 ALLERGIES No Known Allergies ENCOUNTERS Encounter Location Date Diagnosis [address] [id number] [place] [address] Nov, Acute pain of left shoulder M25.512 ; Anemia, unspecified type D64.9 and Right wrist pain M25.531 [facility] [id number] [place] [address] Oct, [facility] [id number] [place] [address] Oct, Muscle cramping R25.2 and Cellulitis of upper extremity, unspecified laterality L03.119 [facility] [id number] [place] [address] Jul, [facility] [id number] [place] [address] Jul, [facility] [id number] [place] [address] May, Asymptomatic human immunodeficiency virus [HIV] infection status Z21 [facility] [address] [id number] [place] [address] Mar, Mood disorder F39 [facility] [address] [place] [id number] Mar, Mood disorder F39 and Vaginal candidiasis B37.3 [facility] [address] [facility] [id number] [place] [address] December, [facility] [address] [facility] [id number] [address] Nov, [facility] [address] [facility] [id number] [place] [address] Nov, [facility] [address] [id number] [address] Oct, [facility] [address] [place] [id number] Oct, Anxiety F41.9 [facility] [address] [facility] [id number] [address] Sep, [facility] [address] [facility] [id number] [address] Aug, [facility] [address] [facility] [id number], [place] [address] Jun, [facility] [address] [facility] [id number] [address] Apr, [facility] [address] [facility] [id number] [address] Mar, [facility] [place] [facility] [address] [facility] [id number] [place] [address] December, [facility] [place] [facility] [address] [facility] [id number] [address] Sep, [facility] [place] [facility] [address] [facility] [id number] [address] Jun, [facility] [place] [facility] [address] [facility] [id number] [address] Mar, [facility] [address] [facility] [id number] [address] Jul, [facility] [address] [facility] [id number] [address] Jul, [facility] [address] [facility] [id number], [place] [address] Jun, [facility] [address] [facility] [id number] [address] May, [facility] [address] [facility] [id number] [address] May, IMMUNIZATIONS No Known Immunizations SOCIAL HISTORY Never Assessed REASON FOR VISIT red sore area on the left side of her left wrist. right hand is swollen and red also. reports aches all over. catrachita, also complaining of a lot of body ache s...describes them as muscle aches. hurts mainly in her upper extremities. PLAN OF CARE Activity Details Follow Up sent to ER Reason: VITAL SIGNS Height 64 in 2017-11-16 Weight 135.8 lbs 2017-11-16 Temperature 99.2 degrees Fahrenheit 2017-11-16 Heart Rate 64 bpm 2017-11-16 Respiratory Rate 20 2017-11-16 BMI 23.31 kg/m2 2017-11-16 Blood pressure systolic 106 mmHg 2017-11-16 Blood pressure diastolic 66 mmHg 2017-11-16 MEDICATIONS Medication Instructions Dosage Frequency Start Date End Date Duration Status Lexapro 10 MG Orally Once a day 1 tablet 24h December, 30 day(s) Not-Taking Genvoya 174-596-363-10 MG Orally Once a day 1 tablet 24h 30 Active Mirtazapine 30 MG Orally Once a day 1 tablet at bedtime 24h Sep, Not-Taking RESULTS No Results PROCEDURES Procedure Date Ordered Result Body Site URINALYSIS, AUTO, W/O SCOPE November 16, 2017 LAB NOT BILLED BY [facility] November 16, 2017 INSTRUCTIONS MEDICATIONS ADMINISTERED No Known Medications MEDICAL (GENERAL) HISTORY Type Description Date Medical History HIV positive since 2007 Medical History History of IV drug use Hospitalization History Rt [facility] cellulitis-[facility] 10/2017
--- OUTSIDE RECORDS SUMMARY | 2019-04-11 02:30 | XMS REPORT ---
Author Author GANESH LOTT Organization [facility] Address [address] [place] [address] Care Team Providers Care Warehouse Delivery Manager Name Role Phone GANESH LOTT Unavailable PROBLEMS Type Condition ICD9-CM Code PFT56-TW Code Onset Dates Condition Status SNOMED Code Problem Asymptomatic human immunodeficiency virus [HIV] infection status Z21 Active 43540573 Problem Mood disorder F39 Active 29560898 Problem Encounter for long-term (current) use of other medications V58.69 Active 518561370 Problem Screening examination for venereal disease V74.5 Active 983303277 Problem Anxiety F41.9 Active 93645923 Problem Asymptomatic human immunodeficiency virus (HIV) infection status V08 Active 64310635 ALLERGIES No Information ENCOUNTERS Encounter Location Date Diagnosis [facility] [id number] [place] [address] Nov, Acute pain of left shoulder M25.512 ; Anemia, unspecified type D64.9 and Right wrist pain M25.531 [facility] [id number] [place] [address] Oct, [facility] [id number] [place] [address] Oct, Muscle cramping R25.2 and Cellulitis of upper extremity, unspecified laterality L03.119 [facility] [id number] [place] [address] Jul, [facility] [id number] [place] [address] Jul, [facility] [id number] [place] [address] May, Asymptomatic human immunodeficiency virus [HIV] infection status Z21 [facility] [id number] [address] Mar, Mood disorder F39 [facility] [address] [id number] Mar, Mood disorder F39 and Vaginal candidiasis B37.3 [facility] [address] [facility] [id number] [place] [address] December, [facility] [address] [facility] [id number] [place] [address] Nov, [facility] [address] [facility] [id number] [place] [address] Nov, [facility] [address] [facility] [id number] [place] [address] Oct, [facility] [address] [place] [id number] Oct, Anxiety F41.9 [facility] [address] [id number] [place] [address] Sep, [facility] [address] [facility] [id number] [place] [address] Aug, [facility] [address] [facility] [id number] [place] [address] Jun, [facility] [address] [facility] [id number] [place] [address] Apr, [facility] [address] [facility] [id number] [place] [address] Mar, [facility] [address] [facility] [id number] [place] [address] December, [facility] [address] [facility] [id number] [place] [address] Sep, [facility] [address] [facility] [id number] [place] [address] Jun, [facility] [address] [facility] [id number] [place] [address] Mar, [facility] [address] [facility] [id number], [place] [address] Jul, [facility] [address] [id number] [address] Jul, [facility] [address] [id number] [address] Jun, [facility] [address]65100[place], [place] [address] May, [facility] [address] [facility] [id number], [place] [address] May, IMMUNIZATIONS No Known Immunizations SOCIAL HISTORY Never Assessed REASON FOR VISIT rerferal PLAN OF CARE VITAL SIGNS MEDICATIONS Unknown Medications RESULTS No Results PROCEDURES No Known procedures INSTRUCTIONS MEDICATIONS ADMINISTERED No Known Medications MEDICAL (GENERAL) HISTORY Type Description Date Medical History HIV positive since 2007 Medical History History of IV drug use Hospitalization History Rt hand cellulitis-[facility] 10/2017
--- OUTSIDE RECORDS SUMMARY | 2019-04-11 02:30 | XMS REPORT ---
Author Author GANESH LOTT Organization [facility] Address [address] [place] [address] Care Team Providers Care Bean Roaster Name Role Phone GANESH LOTT Unavailable PROBLEMS Type Condition ICD9-CM Code EOK39-NH Code Onset Dates Condition Status SNOMED Code Problem Asymptomatic human immunodeficiency virus [HIV] infection status Z21 Active 31615368 Problem Mood disorder F39 Active 69714967 Problem Encounter for long-term (current) use of other medications V58.69 Active 636739338 Problem Screening examination for venereal disease V74.5 Active 058985966 Problem Anxiety F41.9 Active 28864269 Problem Asymptomatic human immunodeficiency virus (HIV) infection status V08 Active [id number] ALLERGIES No Information ENCOUNTERS Encounter Location Date Diagnosis [facility] [id number] [place] [phone] Nov, [facility] [id number] [place] [phone] Oct, [facility] [id number] [place] [phone] Oct, Muscle cramping R25.2 and Cellulitis of upper extremity, unspecified laterality L03.119 [facility] [id number] [place] [phone] Jul, [facility] [id number] [place] [phone] Jul, [facility] [id number] [place] [phone] May, Asymptomatic human immunodeficiency virus [HIV] infection status Z21 [facility] [id number] [place] [phone] Mar, Mood disorder F39 [facility] [address] [place] [id number] Mar, Mood disorder F39 and Vaginal candidiasis B37.3 [facility] [address] [id number] [place] [address] December, [facility] [address] [id number] [place] [address] Nov, [facility] [address] [id number] [place] [address], [place] [address] Nov, [facility] [address] [id number] [place] [address] Oct, [facility] [address] [id number] Oct, Anxiety F41.9 [facility] [address] [id number] [place] [address] Sep, [facility] [id number] [place] [address], [place] [address] Aug, [facility] [address] [id number] [place] [address] Jun, [facility] [address] [id number] [place] [address] Apr, [facility] [address] [id number] [place] [address] Mar, [facility] [address] [id number] [place] [address] December, [facility] [address] [id number] [place] [address] Sep, [facility] [address] [id number] [place] [address] Jun, [facility] [address] [id number] [place] [address] Mar, [facility] [address] [id number] [place] [address] Jul, [facility] [address] [id number] [address] Jul, [facility] [address] [id number] [address] Jun, [facility] [address] [id number] [place] [address] May, [facility] [address] [id number] [address] May, IMMUNIZATIONS No Known Immunizations SOCIAL HISTORY Never Assessed REASON FOR VISIT intermediate rx PLAN OF CARE VITAL SIGNS MEDICATIONS Medication Instructions Dosage Frequency Start Date End Date Duration Status Mirtazapine 30 MG Orally Once a day 1 tablet at bedtime 24h Sep, Active RESULTS No Results PROCEDURES No Known procedures INSTRUCTIONS MEDICATIONS ADMINISTERED No Known Medications MEDICAL (GENERAL) HISTORY Type Description Date Medical History HIV positive since 2007 Medical History History of IV drug use Hospitalization History Rt hand cellulitis-[facility] 10/2017
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
[2019-04-11 02:47] LABS: BILIRUBIN,URINE NEGATIVE (NEGATIVE); CLARITY,URINE SLIGHTLY CLOUDY; COLOR,URINE YELLOW; GLUCOSE, URINE (UA) NEGATIVE (NEGATIVE); KETONES,URINE NEGATIVE (NEGATIVE); LEUKOCYTE ESTERASE ,URINE 3+ (NEGATIVE); NITRITE,URINE NEGATIVE (NEGATIVE); PH,URINE 5 (5-9); PROTEIN,URINE 2+ (NEGATIVE); UROBILINOGEN,URINE 1 MG/DL (NORMAL)
[2019-04-11] MEDS ORDERED: NS IV 1000 ML 1,000 ML IV SCH (02:50)
[2019-04-11] MEDS ORDERED: NS IV 500 ML 500 ML IV ONE (02:50)
[2019-04-11 02:55] LABS: BACTERIA,URINE LARGE /HPF; WBC,URINE >100 /HPF
[2019-04-11] MEDS ORDERED: KETOROLAC 30 MG/ML VIAL IVP ONE (03:00)
[2019-04-11] MEDS ORDERED: cefTRIAXone FOR IV USE 1,000 MG in WATER (STERILE) FOR INJECTION 10 ML IV ONE (03:00)
[2019-04-11] MEDS ORDERED: metroNIDAZOLE 500MG/100ML IVPB 100 ML IV ONE (03:00)
--- NOTE | 2019-04-11 03:01 | ED Abdominal Pain ---
General Chief Complaint: Abdominal/GI Problems Stated Complaint: LT SIDE PAIN Nursing Triage Note: left sided abdominal cramping/fever since 04/06/19 Sepsis Screen: Possible Sepsis Risk Source of Information: Patient, Other Exam Limitations: No Limitations History of Present Illness Date Seen by Provider: Apr 11, 2019 Time Seen by Provider: 02:49 Initial Comments Patient presents to the ER by private conveyance with chief complaint of left- sided lower quadrant abdominal pain and fever going on for 6 days now. She's been taking ibuprofen with her last dose being 10 AM yesterday for 400 mg. She has a gives minimal relief of her pain and does not completely control her fe barrie. She has not seen a doctor for this yet. No history of abdominal trauma, diarrhea, constipation, nausea or vomiting. She had a tubal torsion surgically repaired years ago and no other abdominal surgeries. She has no vaginal discharge, dysuria or history of kidney stone. She denies recreational drug use but does smoke cigarettes. No history of pancreatitis or drinking alcohol. P nahum does endorse HIV. She is followed by Dr. Annamaria Kwon in [facility]. She was seen couple weeks ago had normal undetectable labs and is not on any prophylactic antibiotics. She does not have a local provider. Allergies and Home Medications Allergies Coded Allergies: No Known Drug Allergies (Unverified , 10/13/12) Home Medications Elviteg/Cindy/Emtric/Tenofo Ala 1 Each Tablet, 1 TAB PO DAILY, (Reported) Ibuprofen 200 Mg Tablet, 800 MG PO TID PRN for PAIN-MILD, (Reported) Naproxen Sodium 220 Mg Tablet, 440 MG PO Q8H PRN for PAIN-MILD, (Reported) Patient Home Medication List Home Medication List Reviewed: Yes Review of Systems Review of Systems Constitutional: No chills, No diaphoresis EENTM: No Blurred Vision, No Double Vision Respiratory: Denies Cough, Denies Orthopnea Cardiovascular: Denies Chest Pain, Denies Edema Gastrointestinal: See HPI; Denies Abdomen Distended; Abdominal Pain; Denies Constipated, Denies Diarrhea, Denies Nausea Genitourinary: Denies Burning, Denies Discharge Musculoskeletal: No back pain, No joint pain Skin: No pruritus, No rash Psychiatric/Neurological: Denies Headache, Denies Numbness Past Gjwpmpo-Varlum-Wafywa Hx Patient Social History Alcohol Use: Denies Use Recreational Drug Use: No Drug of Choice: denies Smoking Status: Current Everyday Smoker Type Used: Cigarettes 2nd Hand Smoke Exposure: Yes Recent Foreign Travel: No Contact w/Someone Who Travel: No Recent Infectious Disease Expo: No Recent Hopitalizations: No Physical Abuse: No Sexual Abuse: No Mistreated: No Fear: No Immunizations Up To Date Tetanus Booster (TDap): Unknown PED Vaccines UTD: No Date of Influenza Vaccine: Aug 01, 2017 Seasonal Allergies Seasonal Allergies: No Past Medical History Surgeries: No Respiratory: No Cardiac: No Neurological: Yes Headaches /Migraines : No Last Menstrual Period: Apr 09, 2019 Female Reproductive Disorders: Denies Sexually Transmitted Disease: Yes HIV/AIDS: Yes Genitourinary: No Gastrointestinal: No Musculoskeletal: No Endocrine: No HEENT: No Cancer: No Psychosocial: Yes Anxiety Integumentary: No Blood Disorders: Yes Adverse Reaction/Blood Tranf: No Family Medical History Patient reports no known family medical history. Physical Exam Vital Signs Vital Signs - First Documented 04/11/19 02:28 Temp 102.2 Pulse 121 Resp 18 B/P (MAP) 116/81 (93) Pulse Ox 98 O2 Delivery Room Air Capillary Refill : Less Than 3 Seconds Height/Weight/BMI Height: 5'4.00" Weight: 141lbs. 8.0oz. 64.491246kl; 24.3 BMI Method:Estimated General Appearance: WD/WN, moderate distress HEENT: PERRL/EOMI, pharynx normal (oral mucosa is moist) Neck: non-tender, full range of motion, normal inspection Respiratory: lungs clear, normal breath sounds, no respiratory distress, no accessory muscle use Cardiovascular: normal peripheral pulses, regular rate, rhythm, tachycardia Peripheral Pulses: 2+ Dorsalis Pedis (R), 2+ Left Dors-Pedis (L) Gastrointestinal: normal bowel sounds (quiescent), soft, no organomegaly; No guarding, No rebound; tenderness (left upper and left lower quadrant abdomen but negative for Rovsing sign, psoas sign or other mesenteric signs) Extremities: normal range of motion, non-tender, normal capillary refill Back: normal inspection, no CVA tenderness, no vertebral tenderness Neurologic/Psychiatric: alert, normal mood/affect, oriented x 3 Skin: normal color, warm/dry Focused Exam Sepsis Stage: Sepsis Possible Source: Genitouriary Lactate Level 04/11/19 03:10: Lactic Acid Level 2.98*H Time of Focused Exam: 04:26 Respiratory: Normal Breath Sounds, No Accessory Muscle Use, No Respiratory Distress Cardiovascular: Regular Rate, Rhythm, Normal Peripheral Pulses Capillary Refill: Less Than 3 Seconds Peripheral Pulses: 2+ Radial Pulses (R), 2+ Radial Pulses (L) Skin: normal color, warm/dry Lactic Acid Level Laboratory Tests Test 04/11/19 03:10 Lactic Acid Level 2.98 MMOL/L (0.50-2.00) *H Within 3hrs of presentation: Admin fluids, Admin ABX, Blood cultures prior to ABX's, Focus exam Progress/Results/Core Measures Results/Orders Lab Results Laboratory Tests Test 04/11/19 02:33 04/11/19 03:10 Range/Units Urine Color YELLOW Urine Clarity SLIGHTLY CLOUDY Urine pH 5 5-9 Urine Specific [place] 1.010 L 1.016-1.022 Urine Protein 2+ H NEGATIVE Urine Glucose (UA) NEGATIVE NEGATIVE Urine Ketones NEGATIVE NEGATIVE Urine Nitrite NEGATIVE NEGATIVE Urine Bilirubin NEGATIVE NEGATIVE Urine Urobilinogen 1 NORMAL MG/DL Urine Leukocyte Esterase 3+ H NEGATIVE Urine RBC (Auto) 3+ H NEGATIVE Urine RBC 10-25 H /HPF Urine WBC >100 H /HPF Urine Squamous Epithelial Cells 10-25 H /HPF Urine Crystals NONE /LPF Urine Bacteria LARGE H /HPF Urine Casts NONE /LPF Urine Mucus MODERATE H /LPF Urine Culture Indicated YES Urine Opiates Screen NEGATIVE NEGATIVE Urine Oxycodone Screen NEGATIVE NEGATIVE Urine Methadone Screen NEGATIVE NEGATIVE Urine Propoxyphene Screen NEGATIVE NEGATIVE Urine Barbiturates Screen NEGATIVE NEGATIVE Ur Tricyclic Antidepressants Screen NEGATIVE NEGATIVE Urine Phencyclidine Screen NEGATIVE NEGATIVE Urine Amphetamines Screen POSITIVE H NEGATIVE Urine Methamphetamines Screen POSITIVE H NEGATIVE Urine Benzodiazepines Screen NEGATIVE NEGATIVE Urine Cocaine Screen NEGATIVE NEGATIVE Urine Cannabinoids Screen NEGATIVE NEGATIVE White Blood Count 6.9 4.3-11.0 10^3/uL Red Blood Count 3.64 L 4.35-5.85 10^6/uL Hemoglobin 11.4 L 11.5-16.0 G/DL Hematocrit 34 L 35-52 % Mean Corpuscular Volume 92 80-99 FL Mean Corpuscular Hemoglobin 31 25-34 PG Mean Corpuscular Hemoglobin Concent 34 32-36 G/DL Red Cell Distribution Width 13.5 10.0-14.5 % Platelet Count 178 130-400 10^3/uL Mean Platelet Volume 10.3 7.4-10.4 FL Neutrophils (%) (Auto) 79 H 42-75 % Lymphocytes (%) (Auto) 11 L 12-44 % Monocytes (%) (Auto) 9 0-12 % Eosinophils (%) (Auto) 1 0-10 % Basophils (%) (Auto) 0 0-10 % Neutrophils # (Auto) 5.5 1.8-7.8 X 10^3 Lymphocytes # (Auto) 0.7 L 1.0-4.0 X 10^3 Monocytes # (Auto) 0.6 0.0-1.0 X 10^3 Eosinophils # (Auto) 0.1 0.0-0.3 10^3/uL Basophils # (Auto) 0.0 0.0-0.1 10^3/uL Prothrombin Time 15.1 H 12.2-14.7 SEC INR Comment 1.1 0.8-1.4 Activated Partial Thromboplast Time 34 24-35 SEC Sodium Level 134 L 135-145 MMOL/L Potassium Level 3.2 L 3.6-5.0 MMOL/L Chloride Level 102 98-107 MMOL/L Carbon Dioxide Level 17 L 21-32 MMOL/L Anion Gap 15 H 5-14 MMOL/L Blood Urea Nitrogen 7 7-18 MG/DL Creatinine 1.01 0.60-1.30 MG/DL Estimat Glomerular Filtration Rate 60 BUN/Creatinine Ratio 7 Glucose Level 188 H 70-105 MG/DL Lactic Acid Level 2.98 *H 0.50-2.00 MMOL/L Calcium Level 8.9 8.5-10.1 MG/DL Corrected Calcium 9.5 8.5-10.1 MG/DL Total Bilirubin 0.3 0.1-1.0 MG/DL Aspartate Amino Transf (AST/SGOT) 14 5-34 U/L Alanine Aminotransferase (ALT/SGPT) 18 0-55 U/L Alkaline Phosphatase 97 40-136 U/L Total Protein 6.8 6.4-8.2 GM/DL Albumin 3.2 3.2-4.5 GM/DL Lipase 9 8-78 U/L Serum Test, Qualitative NEGATIVE NEGATIVE Monoscreen NEGATIVE NEGATIVE My Orders Orders - NORMA BAGLEY Ua Culture If Indicated (04/11/19 02:22) Urine Culture (04/11/19 02:33) Cbc With Automated Diff (04/11/19 02:50) Comprehensive Metabolic Panel (04/11/19 02:50) Blood Culture (04/11/19 02:50) Sputum Culture (04/11/19 02:50) Protime With Inr (04/11/19 02:50) Partial Thromboplastin Time (04/11/19 02:50) Chest 1 View, Ap/Pa Only (04/11/19 02:50) Ed Iv/Invasive Line Start (04/11/19 02:50) Ed Iv/Invasive Line Start (04/11/19 02:50) Vital Signs Adult Sepsis Patie Q15M (04/11/19 02:50) O2 (04/11/19 02:50) Remove Rings In Anticipation O (04/11/19 02:50) Lactic Acid Analyzer (04/11/19 02:50) Ns Iv 1000 Ml (Sodium Chloride 0.9%) (04/11/19 02:50) Ceftriaxone For Iv Use (Rocephin For I (04/11/19 03:00) Metronidazole 500mg/100ml Ivpb (Flagyl 5 (04/11/19 03:00) Ed Iv/Invasive Line Start (04/11/19 02:50) Ns Iv 500 Ml (Sodium Chloride 0.9%) (04/11/19 02:50) Ct Abdomen/Pelvis W (04/11/19 02:50) Ketorolac Injection (Toradol Injection) (04/11/19 03:00) Lipase (04/11/19 02:50) Hcg,Qualitative Serum (04/11/19 02:50) Piperacillin/Tazobactam (Bulk) (Zosyn In (04/11/19 03:15) Monotest (04/11/19 03:06) Drug Screen Stat (Urine) (04/11/19 03:55) Medications Given in ED Current Medications Medications Dose Ordered Sig/Naomi Route Start Time Stop Time Status Last Admin Dose Admin Ketorolac Tromethamine 30 mg ONCE ONCE IVP 04/11/19 03:00 04/11/19 03:01 DC 04/11/19 03:14 30 MG Piperacillin Sod/ Tazobactam Sod 4.5 gm/Sodium Chloride 100 ml @ 200 mls/hr ONCE ONCE IV 04/11/19 04:00 04/11/19 04:30 DC 04/11/19 04:00 200 MLS/HR Sodium Chloride 500 ml @ 0 mls/hr Q0M ONCE IV 04/11/19 02:50 04/11/19 02:58 DC 04/11/19 03:13 0 MLS/HR Vital Signs/I&O 04/11/19 04/11/19 04/11/19 04/11/19 02:28 03:10 03:22 03:49 Temp 102.2 99.7 Pulse 121 95 93 Resp 18 16 16 B/P (MAP) 116/81 (93) 115/78 (90) 102/64 Pulse Ox 98 99 99 99 O2 Delivery Room Air Room Air Room Air Room Air Blood Pressure Mean: 93 Progress Progress Note : Time: 03:04 Progress Note Colitis versus abscess versus pelvic inflammatory disease versus? Patient is septic; plan to give her a 20 mL/kg fluid bolus and we will use Zosyn with her history of HIV but apparently undetectable most recent PCR RNA. Urinalysis labs chest x-ray CT of the abdomen pelvis with IV contrast. Serum . [place] spot. Diagnostic Imaging Diagonstic Imaging: Xray Plain Films/CT/US/NM/MRI: chest (1v) Comments No acute cardiopulmonary process noted on one view chest x-ray. Reviewed: Reviewed by Me Diagonstic Imaging: CT (with IV contrast) Plain Films/CT/US/NM/MRI: abdomen, pelvis Comments No air-fluid levels. Large amount of colonic stool. Ureters are patent without obstruction or dilatation. Gallbladder has a lobulated appearance but no thickening of the wall or pericholecystic fluid or other secondary signs of inflammation. Spleen unremarkable. No free air or free fluid. No acute abdominal or pelvic pathology apparent. Mild fecal stasis. Reviewed: Reviewed [place] Study, Reviewed by Me Departure Communication (Admissions) Time/Spoke to Admitting Phy: 04:30 Discussed case lab imaging findings with Dr. Edgar and he agrees with Jessica, IV fluids and admission. Impression Primary Impression: Sepsis Qualified Codes: A41.9 - Sepsis, unspecified organism Additional Impressions: Pyelonephritis History of HIV infection Methamphetamine use Disposition: ADMITTED INPATIENT Condition: Stable Admissions Decision to Admit Reason: Admit from ER (General) Decision to Admit/Date: Apr 11, 2019 Time/Decision to Admit Time: 03:40 Departure-Patient Inst. Referrals: [facility] (PCP/Family) Primary Care Physician NORMA BAGLEY Apr 11, 2019 03:01
[2019-04-11] MEDS ORDERED: PIPERACILLIN/TAZOBACTAM (BULK) 4.5 GM in NS (IVPB) 100 ML IV ONE (03:15)
[2019-04-11 03:33] LABS: BASOPHILS % (AUTO) 0 % (0-10); EOSINOPHILS # (AUTO) 0.1 10^3/uL (0.0-0.3); EOSINOPHILS % (AUTO) 1 % (0-10); HEMATOCRIT 34 % (35-52); HEMOGLOBIN 11.4 G/DL (11.5-16.0); LYMPHOCYTES # (AUTO) 0.7 X 10^3 (1.0-4.0); LYMPHOCYTES % (AUTO) 11 % (12-44); MEAN CORPUSCULAR HEMOGLOBIN 31 PG (25-34); MEAN CORPUSCULAR HGB CONC 34 G/DL (32-36); MEAN CORPUSCULAR VOLUME 92 FL (80-99); MEAN PLATELET VOLUME 10.3 FL (7.4-10.4); MONOCYTES # (AUTO) 0.6 X 10^3 (0.0-1.0); MONOCYTES % (AUTO) 9 % (0-12); NEUTROPHILS # (AUTO) 5.5 X 10^3 (1.8-7.8); NEUTROPHILS % (AUTO) 79 % (42-75); PLATELET COUNT 178 10^3/uL (130-400); RED CELL DISTRIBUTION WIDTH 13.5 % (10.0-14.5); WHITE BLOOD COUNT 6.9 10^3/uL (4.3-11.0)
[2019-04-11 03:45] LABS: INR 1.1 (0.8-1.4); PROTHROMBIN TIME PATIENT 15.1 SEC (12.2-14.7)
[2019-04-11 03:53] LABS: ALBUMIN 3.2 GM/DL (3.2-4.5); BILIRUBIN,TOTAL 0.3 MG/DL (0.1-1.0); CALCIUM 8.9 MG/DL (8.5-10.1); CREATININE SERUM 1.01 MG/DL (0.60-1.30); POTASSIUM 3.2 MMOL/L (3.6-5.0); TOTAL PROTEIN 6.8 GM/DL (6.4-8.2)
[2019-04-11] MEDS ORDERED: PIPERACILLIN SODIUM/TAZOBACTAM 4.5 GM in NS (IVPB) 100 ML IV ONE (04:00)
[2019-04-11 04:19] LABS: BENZODIAZEPINES SCREEN URINE NEGATIVE (NEGATIVE); COCAINE SCREEN URINE NEGATIVE (NEGATIVE)
[2019-04-11 04:20] LABS: AMPHETAMINE SCREEN, URINE POSITIVE (NEGATIVE); BARBITURATE SCREEN URINE NEGATIVE (NEGATIVE); CANNABINOID SCREEN, URINE NEGATIVE (NEGATIVE); METHADONE STAT NEGATIVE (NEGATIVE); METHAMPHETAMINE SCREEN URINE S POSITIVE (NEGATIVE); OPIATE SCREEN URINE NEGATIVE (NEGATIVE); OXYCODONE STAT NEGATIVE (NEGATIVE); PROPOXYPHENE STAT NEGATIVE (NEGATIVE); TRICYCLIC ANTIDEPRESSANTS SCRE NEGATIVE (NEGATIVE)
--- NOTE | 2019-04-11 04:45 | NUR ---
YOSIMANDO Fulton admitted to room 420-1, with an admitting diagnosis of SEPSIS, UTI, PYELONEPHRITIS, on 04/11/19 from [facility] via , accompanied by BOYFRIEND.YOSIMANDO Donaldo introduced to surroundings, call light, bed controls, phone, TV, temperature control, lights, meal times, smoking policy, visitor policy, side rail policy, bathrooms and showers.
--- OUTSIDE RECORDS SUMMARY | 2019-04-11 04:46 | XMS REPORT | Continuity of Care Document ---
Demographics Preferred Language Unknown Marital Status Unknown Confucianism Affiliation Unknown Race Unknown Ethnic Group Unknown Author Organization Unknown Address Unknown Phone Unavailable Allergies Active Description Code Type Severity Reaction Onset Reported/Identified Relationship to Patient Clinical Status Yes No Known Drug Allergies [id number] Drug Allergy Unknown N/A 10/13/2012 Medications There [...] Ot E000.8 OTHER EXTERNAL CAUSE STATUS 07/05/2014 JIM LLOYD Ot E849.0 ACCIDENT IN HOME 07/05/2014 [...] 11/21/2017 JACLYN ISLAS DO Ot Z79.899 OTHER [facility] (CURRENT) DRUG THERAPY 02/25/2019 PURA ZIEGLER MD, [...] culture - 11/19/17 23:55 Bacterial blood culture [facility] Blood lactic acid measurement (moles/volume) - 11/20/17 00:30 Blood lactic acid measurement (moles/volume) 1.05 mmol/L 0.50- 2.00 Bacterial blood culture - 11/20/17 00:30 Bacterial blood culture [facility] Complete blood count (CBC) with automated white [...] Status Pt. Type Provider Facility Loc./Unit Complaint [id number] 05/21/2012 13:27:00 05/21/2012 23:59:59 CLS Outpatient [id number] 11/20/2017 01:05:00 11/21/2017 16:00:00 DIS Inpatient JACLYN ISLAS DO [facility] 4TH R HAND CELLULITIS [id number] 11/16/2017 15:26:00 11/16/2017 18:10:00 DIS Outpatient PURA ZIEGLER MD [facility] ER BILAT HAND SWELLING [id number] 07/05/2014 16:42:00 07/05/2014 18:06:00 DIS Emergency JIM LLOYD [facility] ER R SIDE PAIN [id number] 11/23/2013 16:13:00 11/23/2013 17:11:00 DIS Emergency [id number] 10/13/2012 12:49:00 Document Registration
--- NOTE | 2019-04-11 05:24 | NUR ---
PATIENT WENT WALKING DOWN THE BRASHER WITH HER BOYFRIEND AND THIS NURSE ASKED PATIENT WHERE SHE WAS GOING. PATIENT SAID "JUST DOWNSTAIRS". THIS NURSE TOLD PATIENT THAT SHE COULD NOT GO OUTSIDE TO SMOKE. PATIENT LOOKED AT BOYFRIEND AND WALKED BACK TO HER ROOM AND SLAMMED THE DOOR.
[2019-04-11] MEDS ORDERED: ONDANSETRON 4 MG/2 ML (SDV) Z0FRAN IV PRN (06:00)
[2019-04-11] MEDS ORDERED: fentaNYL INJECTION 100 MCG/2 ML AMP IV PRN (06:00)
--- NOTE | 2019-04-11 06:31 | Diagnostic Imaging Report ---
EXAMINATION: Chest one view at 3:26 AM INDICATION: Left-sided pain The heart size is within normal limits and stable when compared to 07/05/2014. The lungs are clear. There is no evidence for failure, pneumonia or for a pleural effusion. The mediastinum is not widened. The osseous structures are intact. IMPRESSION: There is no evidence for active disease. Dictated by: Dictated on workstation # [id number]
[2019-04-11] MEDS: LACTATED RINGERS 1,000 ML IV SCH ×3 (06:49→20:13)
--- NOTE | 2019-04-11 07:11 | Diagnostic Imaging Report ---
PROCEDURE: CT abdomen and pelvis with contrast. TECHNIQUE: Multiple contiguous axial images were obtained through the abdomen and pelvis after administration of intravenous contrast. Auto Exposure Controls were utilized during the CT exam to meet ALARA standards for radiation dose reduction. INDICATION: Left sided pain. There are no prior studies available for comparison. There are several fluid-filled segments of small bowel throughout the abdomen and pelvis. This appearance is nonspecific but could be related to a mild ileus perhaps secondary to enteritis. There is no sign of a bowel obstruction. The appendix is not well-visualized. There are no indirect signs of acute appendicitis. There does appear to be a fair amount of fecal material throughout the colon. There is no pelvic mass or free fluid collection noted. The uterus and urinary bladder are grossly unremarkable. The liver is prominent and of lower density than usual. This does suggest fatty metamorphosis. The spleen, pancreas, kidneys, adrenals, aorta and inferior vena cava show no sign of an acute abnormality. There is no evidence for cholelithiasis or acute cholecystitis. The stomach is partially filled with fluid and difficult to assess. The lung bases are clear. The bone windows shows no fracture or of a destructive lesion. Impression: 1. The fluid filled segments of small bowel are nonspecific. The possibility that this finding is related to a mild ileus secondary to enteritis should be considered. 2. There is no acute abnormality in the abdomen or pelvis noted otherwise. The appendix is not visualized but there are no indirect signs of acute appendicitis. 3. There is a fair amount of fecal material throughout the colon. Dictated by: Dictated on workstation # [id number]
[2019-04-11] MEDS ORDERED: [UNRECOGNIZED DRUG - OTHER] PO SCH (09:00)
--- NOTE | 2019-04-11 09:07 | NUR ---
patient states someone will be bringing her home medication this morning
[2019-04-11] MEDS: ACETAMINOPHEN 500 MG TAB (TYLENOL) PO PRN ×2 (09:08→17:23)
[2019-04-11] MEDS: KETOROLAC 15 MG/ML VIAL IVP PRN ×2 (09:08→17:23)
[2019-04-11] MEDS ORDERED: NICOTINE 21 MG (NICODERM) PATCH TD ONE (09:15)
[2019-04-11] MEDS ORDERED: cefTRIAXone FOR IV USE 2,000 MG in WATER (STERILE) FOR INJECTION 20 ML IV SCH (17:00)
[2019-04-11] MEDS ORDERED: KCL 20 MEQ TAB (K-DUR) PO ONE (17:15)
--- NOTE | 2019-04-11 17:24 | History & Physical-Hospitalist ---
History of Present Illness HPI/Chief Complaint Vanessa Holt is a 43yoF with PMH HIV on ART reportedly with last HIV RNA undetectable presented to the ER with fever and abdominal pain. She reports that over the past couple days she has been feeling ill. She reports subjective fevers. She reports abdominal pain and flank pain. She denies dysuria, frequency, and urgency. She denies nausea and vomiting. She denies chest pain and dyspnea. She denies cough. She denies rash. She has been compliant with her ART and this is her only medication. She is a smoker and uses methamphetamine but not recently. She denies IV drug use. Source: patient Exam Limitations: no limitations Date Seen 04/11/19 Time Seen by a Provider: 17:00 Attending Physician Lulu Díaz MD [facility] Referring Physician Date of Admission Apr 11, 2019 at 04:00 Home Medications & Allergies Home Medications Reviewed patient Home Medication Reconciliation performed by pharmacy medication reconciliations certified ophthalmic technician and/or nursing. Patients Allergies have been reviewed. Allergies Allergies Coded Allergies No Known Drug Allergies (Unverified10/13/12) Past Turgqcr-Vkfttu-Beurla Hx Past Med/Social Hx: Reviewed Nursing Past Med/Soc Hx, Reviewed and Corrections made Patient Social History Alcohol Use: Denies Use Recreational Drug Use: Yes Drug of Choice: Methamphetamine Smoking Status: Current Everyday Smoker Type Used: Cigarettes 2nd Hand Smoke Exposure: Yes Physical Abuse Screen: No Sexual Abuse: No Recent Foreign Travel: No Contact w/other who traveled: No Recent Hopitalizations: No Recent Infectious Disease Expo: No Immunizations Up To Date Tetanus Booster (TDap): Unknown Pediatric: No Date of Pneumonia Vaccine: Aug 11, 2018 Date of Influenza Vaccine: Aug 01, 2017 Seasonal Allergies Seasonal Allergies: No Past Medical History Neurological: Headaches /Migraines : No Sexually Transmitted Disease: Yes HIV/AIDS: Yes Female Reproductive Disorders: Denies Psychosocial: Anxiety History of Blood Disorders: No Adverse Reaction to Blood Alejandre: No Family History Patient reports no known family medical history. Review of Systems Constitutional: fever, malaise, weakness EENTM: no symptoms reported Respiratory: no symptoms reported Cardiovascular: no symptoms reported Gastrointestinal: abdominal pain; No constipation, No diarrhea, No nausea, No vomiting Genitourinary: No dysuria, No frequency Musculoskeletal: back pain Skin: no symptoms reported Psychiatric/Neurological: No Symptoms Reported Physical Exam Physical Exam Vital Signs Vital Signs - First Documented 04/11/19 02:28 Temp 102.2 Pulse 121 Resp 18 B/P (MAP) 116/81 (93) Pulse Ox 98 O2 Delivery Room Air Capillary Refill : Less Than 3 Seconds Height, Weight, BMI Height: 5'4.00" Weight: 146lbs. 3.0oz. 66.920125pr; 25.1 BMI Method:Estimated General Appearance: Mild Distress, Other (uncomfortable) HEENT: PERRL/EOMI, Pharynx Normal Neck: Normal Inspection, Supple Respiratory: Lungs Clear, Normal Breath Sounds, No Respiratory Distress Cardiovascular: Regular Rate, Rhythm, No Edema, No Murmur Gastrointestinal: Normal Bowel Sounds, Soft, Tenderness (diffusely) Back: Normal Inspection, CVA Tenderness (R) Extremity: Normal Inspection, Non Tender, No Pedal Edema Neurologic/Psychiatric: Alert, No Motor/Sensory Deficits; No Disoriented Skin: Normal Color, Warm/Dry Lymphatic: No Adenopathy Results Results/Procedures Labs Laboratory Tests 04/11/19 03:10 Patient resulted labs reviewed. Imaging: Reviewed Imaging Report Assessment/Plan Admission Diagnosis Sepsis due to urinary tract infection Admission Status: Inpatient Order (span 2 midnights) Reason for Inpatient Admission: Pyelonephritis Lactic acidosis Acute kidney injury Hypokalemia Assessment and Plan Sepsis due to pyelonephritis GNR bacteremia -SIRS+ with fever and tachycardia -Septic source identified as UTI on UA -Chest xray unremarkable -Blood cultures positive for gram negative rods, identification and susceptibilities pending -Urine culture growing E coli, susceptibilities pending -Started on Vancomycin and Zosyn in ER -Transitioned to Rocephin once urinary source identified -Fluid bolus given in ER -LR 125 ml/hr ordered Acute kidney injury -Cr 1.01 on admission, baseline ~0.6 -IV fluids ordered -Continue to monitor Lactic acidosis -Lactic acid 2.98 on admission, trended down to 0.77 with fluids -IV fluids ordered History of HIV infection -Last HIV RNA reportedly undetectable -Unknown last CD4 count -Not taking any prophylactic antibiotics -Continue ART Hypokalemia -K 3.2 on admission -Given oral KCl -Continue to monitor Diagnosis/Problems Diagnosis/Problems (1) Sepsis due to urinary tract infection Status: Acute (2) Pyelonephritis Status: Acute (3) Gram-negative bacteremia Status: Acute (4) Acute kidney injury Status: Acute (5) Lactic acidosis Status: Resolved Resolution Date/Time: 04/11/19 @ 17:30 (6) History of HIV infection Status: Acute (7) Methamphetamine use Status: Acute Clinical Quality Measures DVT/VTE Risk/Contraindication: Risk Factor Score Per Nursin RFS Level Per Nursing on Admit: 2=Moderate LULU DÍAZ MD Apr 11, 2019 17:24
[2019-04-12 00:34] LABS: BASOPHILS % (AUTO) 0 % (0-10); EOSINOPHILS # (AUTO) 0.1 10^3/uL (0.0-0.3); EOSINOPHILS % (AUTO) 1 % (0-10); HEMATOCRIT 29 % (35-52); HEMOGLOBIN 9.8 G/DL (11.5-16.0); LYMPHOCYTES % (AUTO) 24 % (12-44); MEAN CORPUSCULAR HEMOGLOBIN 32 PG (25-34); MEAN CORPUSCULAR HGB CONC 34 G/DL (32-36); MEAN CORPUSCULAR VOLUME 93 FL (80-99); MEAN PLATELET VOLUME 10.5 FL (7.4-10.4); MONOCYTES # (AUTO) 0.7 X 10^3 (0.0-1.0); MONOCYTES % (AUTO) 17 % (0-12); NEUTROPHILS # (AUTO) 2.5 X 10^3 (1.8-7.8); NEUTROPHILS % (AUTO) 57 % (42-75); PLATELET COUNT 116 10^3/uL (130-400); RED CELL DISTRIBUTION WIDTH 13.3 % (10.0-14.5); WHITE BLOOD COUNT 4.3 10^3/uL (4.3-11.0)
[2019-04-12 00:35] LABS: BUN/CREATININE RATIO 7; CALCIUM 8.4 MG/DL (8.5-10.1); CARBON DIOXIDE 19 MMOL/L (21-32); CHLORIDE 111 MMOL/L (98-107); CREATININE SERUM 0.74 MG/DL (0.60-1.30); GFR ESTIMATED > 60; GLUCOSE 121 MG/DL (70-105); MAGNESIUM 1.6 MG/DL (1.8-2.4); SODIUM 139 MMOL/L (135-145)
[2019-04-12 03:00] VITALS: BP 104/66
[2019-04-12] MEDS ORDERED: cefTRIAXone 1,000 MG/SWFI 10 ML IV PUSH IV SCH ×2 (03:00)
[2019-04-12] MEDS: LACTATED RINGERS 1,000 ML IV SCH ×2 (03:30→09:27)
[2019-04-12 08:00] VITALS: BP 101/55
[2019-04-12] MEDS ORDERED: NICOTINE 21 MG (NICODERM) PATCH TD SCH ×2 (09:00)
[2019-04-12] MEDS ORDERED: BUTA1TAB9 PO (09:28)
--- NOTE | 2019-04-12 09:29 | NUR ---
SPOKE WITH PATIENT WELL GOING THRU THE EXT MED HISTORY TO COMPLETE THE MED REC. BUTALBITAL: ONLY TAKES WHEN SHE HAS MIGRAINES OTC MEDICATIONS: ALEVE 220M TABS Q 8 H PRN ADVIL 200M TABS TID PRN
[2019-04-12] MEDS ORDERED: CEFD300C3 PO (09:33)
[2019-04-12 09:37] VITALS: BP 101/55
--- NOTE | 2019-04-12 10:10 | Discharge Summary ---
LUNA GONZALES, 04/12/19 1010: Diagnosis/Chief Complaint Date of Admission Apr 11, 2019 at 04:00 Date of Discharge Discharge Date: Apr 12, 2019 Admission Diagnosis Sepsis due to urinary tract infection Discharge Diagnosis (1) Sepsis due to urinary tract infection Status: Acute (2) Pyelonephritis Status: Acute (3) Gram-negative bacteremia Status: Acute (4) Acute kidney injury Status: Acute (5) Lactic acidosis Status: Resolved (6) History of HIV infection Status: Acute (7) Methamphetamine use Status: Acute Discharge Summary Procedures/Consulations Date: 04/12/2019 Time: 0720 S: Pt feels great today. Denies pain, urgency, pressure, burning on urination. Feels ready to go home. Bowels are moving well and is walking around fine. Has no PCP but goes to [facility]. This is also where she gets her medications. Takes Genvoya for HAART therapy. Last viral load was undetectable. K+ back to 4.0. Labs: Hgb 9.8, Plt 116, Mg 1.6, BUN/Cr 5/0.74. Given Ceftriaxone 2g QD IV for E. coli causing her UTI O: Vitals stable Cardiovascular: RRR, no murmurs or bruits Respiratory: CBLA, no rhonchi or wheezing Abdomen: no rebound tenderness, no guarding, no pain to light palpation Assessment: 1. Urosepsis d/t pyelonephritis 2. Lactic acidosis 3. Hx of HIV infection 4. Hypokalemia Plan: 1. Cefdinir 300mg for 2 weeks 2. F/u at clinic on Friday with appointment time listed Discharge Physical Exam Allergies: Coded Allergies: No Known Drug Allergies (Unverified , 10/13/12) Vitals & I&Os Vital Signs Date Time Temp Pulse Resp B/P (MAP) Pulse Ox O2 Delivery O2 Flow Rate FiO2 04/12/19 09:37 69 20 101/55 99 Room Air 04/12/19 08:00 97.5 Hospital Course Labs (last 24 hrs) Laboratory Tests 04/12/19 00:00: White Blood Count 4.3, Red Blood Count 3.11L, Hemoglobin 9.8L, Hematocrit 29L, Mean Corpuscular Volume 93, Mean Corpuscular Hemoglobin 32, Mean Corpuscular Hemoglobin Concent 34, Red Cell Distribution Width 13.3, Platelet Count 116L, Mean Platelet Volume 10.5H, Neutrophils (%) (Auto) 57, Lymphocytes (%) (Auto) 24, Monocytes (%) (Auto) 17H, Eosinophils (%) (Auto) 1, Basophils (%) (Auto) 0, Neutrophils # (Auto) 2.5, Lymphocytes # (Auto) 1.0, Monocytes # (Auto) 0.7, Eos inophils # (Auto) 0.1, Basophils # (Auto) 0.0, Sodium Level 139, Potassium Level 4.0, Chloride Level 111H, Carbon Dioxide Level 19L, Anion Gap 9, Blood Urea Nitrogen 5L, Creatinine 0.74, Estimat Glomerular Filtration Rate > 60, BUN/Creatinine Ratio 7, Glucose Level 121H, Calcium Level 8.4L, Magnesium Level 1.6L Microbiology 04/11/19 Blood Culture - Preliminary, Resulted Escherichia coli 04/11/19 Urine Culture - Preliminary, Resulted Escherichia coli Patient resulted labs reviewed. Imaging: Reviewed Imaging Report Discharge Home Medications: Active Scripts Active Cefdinir 300 Mg Capsule 300 Mg PO BID Reported Otovvv-Qeghoguu-Jkcf 50-325-40 (Butalb/Acetaminophen/Caffeine) 1 Each Tablet 1 Tab PO BID PRN Advil (Ibuprofen) 200 Mg Tablet 800 Mg PO TID PRN Aleve (Naproxen Sodium) 220 Mg Tablet 440 Mg PO Q8H PRN Genvoya Tablet (Elviteg/Cindy/Emtric/Tenofo Ala) 1 Each Tablet 1 Tab PO DAILY Instructions to patient/family Please see electronic discharge instructions given to patient. Clinical Quality Measures DVT/VTE Risk/Contraindication: Risk Factor Score Per Nursin RFS Level Per Nursing on Admit: 2=Moderate SHAYNA FRANZ DO 04/12/19 2142: Diagnosis/Chief Complaint Discharge Diagnosis (1) Sepsis due to urinary tract infection Status: Acute (2) Gram-negative bacteremia Status: Acute (3) Lactic acidosis Status: Resolved (4) Acute kidney injury Status: Acute (5) History of HIV infection Status: Acute Discharge Summary Discharge Physical Exam Allergies: Coded Allergies: No Known Drug Allergies (Unverified , 10/13/12) General Appearance: No Apparent Distress, WD/WN Respiratory: Chest Non Tender, Lungs Clear, Normal Breath Sounds, No Accessory Muscle Use, No Respiratory Distress Cardiovascular: Regular Rate, Rhythm, No Edema, No Gallop, No JVD, No Murmur, Normal Peripheral Pulses Neurologic/Psychiatric: Alert, Oriented x3, No Motor/Sensory Deficits, Normal Mood/Affect Hospital Course Was the Problem List Reviewed?: Yes Hospital course: Pt had a brief hospital course, she was admitted and placed on Rocephin for UTI with Pyelonephritis and blood cultures did reveal E. coli. Potassium was replaced now at 4.1, Hgb remains low at 9.8 likely due to HIV t reatment. Pt was deemed stable for DC and placed on Cefdinir for an additional 12 doses twice daily because of E. coli bacteremia. She will have close follow up on Friday to ensure Cefdinir will be good coverage for cultures. Discussion & Recommendations Discharge Planning: <30 minutes discharge planning Supervisory-Addendum Brief Verification & Attestation Time: Verification & Attestat.: 09:00 Participated in pt care: history, MDM, physical Personally performed: exam, history, MDM, supervision of care Care discussed with: Medical Student Procedures: n/a Results interpretation: Verified all documentation Verification and Attestation of Medical Student E/M Service A medical student performed and documented this service in my presence. I reviewed and verified all information documented by the medical student and made modifications to such information, when appropriate. I personally performed the physical exam and medical decision making. Shayna Franz, Apr 12, 2019,21:43 LUNA GONZALES, Apr 12, 2019 10:10 SHAYNA FRANZ DO Apr 12, 2019 21:42
== END 2019-04-12 09:50 | disposition home or self-care (01) | DRG 872 ==
LOC: EDUNIT# 02:20 → ER 02:23 → 4TH 04:00
PROVIDERS: ADMIT Internal Medicine; ATTEND Internal Medicine
DX: A41.51 Sepsis due to Escherichia coli [E. coli] (principal); N12 Tubulo-interstitial nephritis, not specified as acute or chronic; N17.9 Acute kidney failure, unspecified; E87.6 Hypokalemia; Z21 Asymptomatic human immunodeficiency virus [HIV] infection status; F15.90 Other stimulant use, unspecified, uncomplicated; F17.210 Nicotine dependence, cigarettes, uncomplicated; F41.9 Anxiety disorder, unspecified
CPT/HCPCS: 36415; 71045; 74177; 80048; 80053; 80306; 81000; 83605; 83690; 83735; 84703; 85025; 85610; 85730; 86308; 87040; 87077; 87088; 87186

== ENCOUNTER 2020-04-25 02:56 | Emergency (ER) | payer BC, MEDICAID ==
[~2020-04-25] VITALS: Ht 162.6 cm; Wt 63.5 kg
[~2020-04-25 02:56] MED LIST changes: +BUTA1TAB9 PO; +CEFD300C3 PO
--- NOTE | 2020-04-25 03:33 | NUR ---
Pt reports to be current on tetanus vaccine.
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
[2020-04-25] MEDS ORDERED: TETANUS,DIPTH,PERTUSS P/F (BOOSTRIX) 0.5 ML VIAL IM ONE (03:45)
[2020-04-25] MEDS ORDERED: RX-MUPIROCIN (BACTROBAN) 2% OINT 22 GM TUBE TOP STA (04:08)
[2020-04-25] MEDS ORDERED: SULF1TAB35 PO (04:13)
[2020-04-25] MEDS ORDERED: MUPI22OI2 TP (04:13)
[2020-04-25] MEDS ORDERED: TRIM/SULFAMETH 160/800 (SEPTRA DS) TAB PO ONE (04:15)
[2020-04-25 04:27] VITALS: BP 119/90
--- NOTE | 2020-04-25 06:06 | Diagnostic Imaging Report ---
INDICATION: Elbow pain TECHNIQUE: 3 views of the left elbow CORRELATION STUDY: None FINDINGS: There is normal alignment of the osseous structures of the elbow. No acute fracture. No abnormal joint effusion. Apparent soft tissue defect along the dorsal aspect of proximal forearm. No foreign body. IMPRESSION: 1. Negative for acute bony abnormality of the elbow. Dictated by: Dictated on workstation # [id number]
--- NOTE | 2020-04-25 06:06 | Diagnostic Imaging Report ---
INDICATION: Pain TECHNIQUE: 2 views of the left forearm. CORRELATION STUDY: None FINDINGS: The radius and ulna have an unremarkable appearance. The visualized portions of the elbow and wrist are unremarkable. Soft tissues are unremarkable. IMPRESSION: 1. Negative for acute bony abnormality of the forearm. Dictated by: Dictated on workstation # [id number]
--- NOTE | 2020-04-25 06:07 | Diagnostic Imaging Report ---
INDICATION: Hand pain. TECHNIQUE: Three views of the left hand. CORRELATION STUDY: 11/23/2013 FINDINGS: There is normal alignment and appearance of the osseous structures of the hand. The joint spaces are maintained. There is no acute fracture. Small cystic change within the proximal pole navicular bone. Soft tissues are unremarkable. IMPRESSION: 1. Negative for acute bony abnormality of the hand. Dictated by: Dictated on workstation # [id number]
== END 2020-04-25 04:27 | disposition home or self-care (01) ==
LOC: EDUNIT# 02:56 → ER 03:00
DX: S51.032A Puncture wound without foreign body of left elbow, initial encounter (principal); S50.12XA Contusion of left forearm, initial encounter; S60.511A Abrasion of right hand, initial encounter; S60.414A Abrasion of right ring finger, initial encounter; S60.417A Abrasion of left little finger, initial encounter; S80.212A Abrasion, left knee, initial encounter; G43.909 Migraine, unspecified, not intractable, without status migrainosus; F17.210 Nicotine dependence, cigarettes, uncomplicated; Z23 Encounter for immunization; V17.4XXA Pedal cycle driver injured in collision with fixed or stationary object in traffic accident, initial encounter
CPT/HCPCS: 73080; 73090; 73130; 90715

== ENCOUNTER 2021-04-14 16:49 | Emergency (ER) | payer BC, MEDICAID ==
[~2021-04-14] VITALS: Ht 162.6 cm; Wt 63.5 kg
[~2021-04-14 16:49] MED LIST changes: +BUTA-235 PO; -BUTA1TAB9 PO; +MUPI22OI2 TP; +SULF1TAB38 PO
[2021-04-14 16:58] VITALS: BP 132/91
[2021-04-14] MEDS ORDERED: DOXYCYCLINE 100 MG (VIBRAMYCIN) TABLET PO SCH (17:15)
[2021-04-14] MEDS ORDERED: DOXY100T2 PO (17:18)
--- NOTE | 2021-04-14 17:18 | ED General ---
General Chief Complaint: Bite-Animal/Human/Insect Stated Complaint: BI LAT FOOT SPIDER BITES Nursing Triage Note: PT AMBULATE TO TRIAGE WITH C/O SPIDER BITES TO BILAT FEET. Source of Information: Patient Exam Limitations: No Limitations History of Present Illness Date Seen by Provider: Apr 14, 2021 Time Seen by Provider: 17:14 Initial Comments wound to right middle toe for several weeks. Timing/Duration: Other Severity: Moderate Associated Systoms: Denies Symptoms Allergies and Home Medications Allergies Coded Allergies: No Known Drug Allergies (Unverified , 10/13/12) Home Medications Butalb/Acetaminophen/Caffeine 1 Each Tablet, 1 TAB PO BID PRN for MIGRAINE, (Reported) Cefdinir 300 Mg Capsule, 300 MG PO BID Prescribed by: TENZIN FRANZ on 04/12/19 0933 Elviteg/Cindy/Emtric/Tenofo Ala 1 Each Tablet, 1 TAB PO DAILY, (Reported) Ibuprofen 200 Mg Tablet, 800 MG PO TID PRN for PAIN-MILD, (Reported) Mupirocin 22 Gm Oint...g., 22 GM TP BID Prescribed by: PINEDA HYDE on 04/25/20412 Naproxen Sodium 220 Mg Tablet, 440 MG PO Q8H PRN for PAIN-MILD, (Reported) Sulfamethoxazole/Trimethoprim 1 Each Tablet, 1 EACH PO BID Prescribed by: PINEDA HYDE on 04/25/20412 Patient Home Medication List Home Medication List Reviewed: Yes Review of Systems Review of Systems Constitutional: see HPI; No chills, No fever EENTM: see HPI Respiratory: no symptoms reported; No cough, No short of breath Cardiovascular: no symptoms reported Gastrointestinal: No melena, No nausea, No vomiting Genitourinary: no symptoms reported; No hematuria Musculoskeletal: No muscle pain Skin: no symptoms reported Psychiatric/Neurological: No Symptoms Reported Hematologic/Lymphatic: No Symptoms Reported Past Mzbuudj-Znxkge-Dqokgi Hx Patient Social History Tobacco Use?: Yes Tobacco type used: Cigarettes Smoking Status: Current Everyday Smoker Substance use?: No Alcohol Use?: No Pt feels they are or have been: No Immunizations Up To Date Tetanus Booster (TDap): Unknown PED Vaccines UTD: No Seasonal Allergies Seasonal Allergies: No Past Medical History Surgeries: No Respiratory: No Cardiac: No Neurological: Yes Headaches /Migraines Reproductive Disorders: Yes Female Reproductive Disorders: Denies Sexually Transmitted Disease: Yes HIV/AIDS: Yes Genitourinary: No Gastrointestinal: No Musculoskeletal: No Endocrine: No HEENT: No Cancer: No Psychosocial: No Anxiety Integumentary: No Blood Disorders: No Adverse Reaction/Blood Tranf: No Family Medical History Patient reports no known family medical history. Physical Exam Vital Signs Vital Signs - First Documented 04/14/21 16:58 Temp 36.9 Pulse 92 Resp 18 B/P (MAP) 132/91 (105) O2 Delivery Room Air Capillary Refill : Less Than 3 Seconds Height, Weight, BMI Height: 5'4.00" Weight: 146lbs. 3.0oz. 66.819691xw; 24.00 BMI Method:Estimated General Appearance: No Apparent Distress, WD/WN Eyes: Bilateral Eye Normal Inspection, Bilateral Eye PERRL, Bilateral Eye EOMI Neck: Full Range of Motion, Normal Inspection Respiratory: No Accessory Muscle Use, No Respiratory Distress Cardiovascular: Regular Rate, Rhythm, Normal Peripheral Pulses Gastrointestinal: Non Tender, Soft Extremity: Normal Capillary Refill, Normal Inspection Neurologic/Psychiatric: Alert, Oriented x3 Skin: Normal Color, Warm/Dry, Other (2 separate 5mm ulcerated areas to middle toe right foot. One at dorsal aspect of mtp joint comprised of granulation tissue wihtout eschar. a more distal but also dorsal wound over middle phalanx same size does have whitish eschar easily removed. Culture collected. no purulence. No cellulitis of foot. ) Progress/Results/Core Measures Suspected Sepsis SIRS Temperature: Pulse: 92 Respiratory Rate: 18 Blood Pressure 132 /91 Mean: 105 Results/Orders Vital Signs/I&O 04/14/21 16:58 Temp 36.9 Pulse 92 Resp 18 B/P (MAP) 132/91 (105) O2 Delivery Room Air Capillary Refill : Less Than 3 Seconds 2 Blood Pressure Mean: 105 Departure Impression Primary Impression: Wound, open, toe Disposition: 01 HOME, SELF-CARE Condition: Stable Departure-Patient Inst. Decision time for Depature: 17:16 Referrals: [facility] (PCP/Family) Primary Care Physician Patient Instructions: Wound Infection Add. Discharge Instructions: 1. Return to ER for any concerns. Apply the antibiotic ointment twice a day for 7 days. Follow up with your doctor next week. All discharge instructions reviewed with patient and/or family. Voiced un derstanding. Scripts Doxycycline Hyclate (Doxycycline Hyclate) 100 Mg Tablet 100 MG PO BID, #14 TAB 0 Refills Prov: KERRI MENDEZ APRN 04/14/21 KERRI MENDEZ APRN Apr 14, 2021 17:18
[2021-04-14] MEDS ORDERED: MUPIROCIN 2% OINT 22 GM (BACTROBAN) TUBE ONE (17:24)
[2021-04-14] MEDS ORDERED: MUPIROCIN 2% OINT 22 GM (BACTROBAN) TUBE TOP SCH (21:00)
== END 2021-04-14 17:30 | disposition home or self-care (01) ==
LOC: EDUNIT# 16:49 → ER 16:51
DX: S91.104A Unspecified open wound of right lesser toe(s) without damage to nail, initial encounter (principal); F17.210 Nicotine dependence, cigarettes, uncomplicated; W57.XXXA Bitten or stung by nonvenomous insect and other nonvenomous arthropods, initial encounter
CPT/HCPCS: 87070; 87077; 87186; 87205; 99283

== ENCOUNTER 2021-10-29 01:04 | Emergency (ER) | payer BC, MEDICAID ==
[~2021-10-29] VITALS: Ht 162.5 cm; Wt 63.5 kg
[~2021-10-29 01:04] MED LIST changes: +DOXY100T2 PO
[2021-10-29] MEDS ORDERED: [UNRECOGNIZED DRUG - CODE] PO (02:01)
--- NOTE | 2021-10-29 02:01 | ED Cough/URI ---
General Chief Complaint: General Problems/Pain Stated Complaint: TROUBLE BREATHING;COUGH;BODY ACHES;CONGESTION Nursing Triage Note: pt ambulatory to room. pt states symptoms of shortness of breath, body aches, cough, and "always feeling cold" started today. pt denies any covid exposure that she is aware of Source: patient History of Present Illness Date Seen by Provider: Oct 29, 2021 Time Seen by Provider: 01:17 Initial Comments PT ARRIVES VIA POV FROM HOME STATES SHE STARTED GETTING SICK THIS EVENING/Friday10/28/21 C/O COUGH AND CONGESTION C/O HEADACHE C/O BODY ACHES C/O CHILLS AND SUBJECTIVE FEVER C/O SHORTNESS OF BREATH C/O SORE THROAT NO GI SYMPTOMS NO LOSS OF TASTE OR SMELL HAS NOT TAKEN ANYTHING FOR SYMPTOMS PT BABYSITS, BUT DENIES ANY SICK CONTACTS PT HAS NOT HAD FLU OR COVID-19 VACCINES. PT IS HIV +, DENIES ANY MISSED DOSES OF HER MEDICATIONS, AND STATES THAT HER COUNTS ARE "OK" BUT DOES NOT KNOW NUMBERS PT ALSO SMOKES AT LEAST 1 PPD DENIES ANY RESPIRATORY PROBLEMS PCP: NONE--STATES SHE SEES HIV DR ROJELIO STAHL AT [facility]. DOES NOT SEE ANY OTHER DR'S Allergies and Home Medications Allergies Coded Allergies: No Known Drug Allergies (Unverified , 10/13/12) Patient Home Medication List Home Medication List Reviewed: Yes Baloxavir Marboxil (Xofluza) 20 Mg Tablet, 40 MG PO ONCE Prescribed by: PINEDA HYDE on 10/29/21 0201 Butalb/Acetaminophen/Caffeine (Lqvhhg-Ihqgbmhg-Avpg 50-325-40) 1 Each Tablet, 1 TAB PO BID PRN for MIGRAINE, (Reported) Entered as Reported by: NORA CARD on 04/12/19 0928 Cefdinir (Cefdinir) 300 Mg Capsule, 300 MG PO BID Prescribed by: TENZIN FRANZ on 04/12/19 0933 Doxycycline Hyclate (Doxycycline Hyclate) 100 Mg Tablet, 100 MG PO BID Prescribed by: KERRI MENDEZ on 04/14/21 171 Elviteg/Cindy/Emtric/Tenofo Ala (Genvoya Tablet) 1 Each Tablet, 1 TAB PO DAILY, (Reported) Entered as Reported by: LENNY JAMA on 11/16/17 1722 Ibuprofen (Advil) 200 Mg Tablet, 800 MG PO TID PRN for PAIN-MILD, (Reported) Entered as Reported by: ZURI HWANG on 11/20/17 0855 Mupirocin (Mupirocin) 22 Gm Oint...g., 22 GM TP BID Prescribed by: PINEDA HYDE on 04/25/20 041 Naproxen Sodium (Aleve) 220 Mg Tablet, 440 MG PO Q8H PRN for PAIN-MILD, (Reported) Entered as Reported by: ZURI HWANG on 11/20/17 0855 Sulfamethoxazole/Trimethoprim (Bactrim Ds Tablet) 1 Each Tablet, 1 EACH PO BID Prescribed by: PINEDA HYDE on 04/25/20412 Review of Systems Review of Systems Constitutional: see HPI, chills, fever, malaise, weakness EENTM: see HPI, nose congestion, throat pain Respiratory: see HPI, cough, short of breath Cardiovascular: no symptoms reported Gastrointestinal: no symptoms reported Genitourinary: no symptoms reported Musculoskeletal: see HPI (BODY ACHES) Skin: no symptoms reported Psychiatric/Neurological: See HPI, Headache Hematologic/Lymphatic: No Symptoms Reported Immunological/Allergic: see HPI, HIV/AIDS Past Ndgvbsv-Jvgeyt-Uzqnpx Hx Patient Social History Tobacco Use?: Yes (1 PPD) Tobacco type used: Cigarettes Smoking Status: Current Everyday Smoker Substance use?: Yes Substance type: Methamphetamine Alcohol Use?: No Pt feels they are or have been: No Immunizations Up To Date Tetanus Booster (TDap): Unknown PED Vaccines UTD: No Influenza Vaccine Up-to-Date: No; Not Current Seasonal Allergies Seasonal Allergies: No Past Medical History Surgeries: No Respiratory: No Cardiac: No Neurological: Yes Headaches /Migraines Reproductive Disorders: Yes Female Reproductive Disorders: Denies Sexually Transmitted Disease: Yes HIV/AIDS: Yes Genitourinary: No Gastrointestinal: No Musculoskeletal: No Endocrine: No HEENT: No Cancer: No Psychosocial: Yes Anxiety Integumentary: Yes (CELLULITIS) Blood Disorders: No Adverse Reaction/Blood Tranf: No Family Medical History Patient reports no known family medical history. Physical Exam Vital Signs - First Documented 10/29/21 01:24 Temp 37.1 Pulse 89 Resp 22 B/P (MAP) 139/87 (104) Pulse Ox 98 O2 Delivery Room Air Capillary Refill : Height: 5'4.00" Weight: 146lbs. 3.0oz. 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, no motor/sensory deficits, alert, normal mood/affect, oriented x 3 Skin: normal color, warm/dry Progress/Results/Core Measures Suspected Sepsis SIRS Temperature: Pulse: 89 Respiratory Rate: 22 Blood Pressure 139 /87 Mean: 104 Results/Orders Lab Results Laboratory Tests Test 10/29/21 01:15 Range/Units Influenza Type A (RT-PCR) Detected H Not Detecte Influenza Type B (RT-PCR) Not Detected Not Detecte SARS-CoV-2 RNA (RT-PCR) Not Detected Not Detecte My Orders Orders - PINEDA HYDE DO Covid 19 Inhouse Test (10/29/21 01:17) Influenza A And B By Pcr (10/29/21 01:17) Isolation Central Supply Req (10/29/21 01:17) Vital Signs/I&O 10/29/21 01:24 Temp 37.1 Pulse 89 Resp 22 B/P (MAP) 139/87 (104) Pulse Ox 98 O2 Delivery Room Air Capillary Refill : Blood Pressure Mean: 104 Progress Note : Progress Note PLACED IN ISOLATION ROOM PPE WORN COVID AND FLU TESTING DONE ANTICIPATED COURSE DISCUSSED AND RETURN PRECAUTIONS REVIEWED Departure Impression Primary Impression: Influenza A Disposition: 01 HOME, SELF-CARE Condition: Stable Departure-Patient Inst. Decision time for Depature: 01:55 Referrals: [facility] (PCP/Family) Primary Care Physician Patient Instructions: Flu, Adult (DC) Add. Discharge Instructions: LOTS OF CLEAR LIQUIDS TYLENOL 1 GRAM / MOTRIN 800 MG 4 TIMES A DAY FOR PAIN OR FEVER OVER THE COUNTER MEDICATIONS FOR COUGH AND CONGESTION SUCH MUCINEX DM FOLLOW UP WITH YOUR DR IN 4-5 DAYS IF NO BETTER, RETURN TO ER IF WORSE All discharge instructions reviewed with patient and/or family. Voiced understa nding. Scripts Baloxavir Marboxil (Xofluza) 20 Mg Tablet 40 MG PO ONCE, #2 TAB Prov: PINEDA HYDE DO 10/29/21 PINEDA HYDE DO Oct 29, 2021 02:01
[2021-10-29 02:25] VITALS: BP 146/72
== END 2021-10-29 02:24 | disposition home or self-care (01) ==
LOC: EDUNIT# 01:04 → ER 01:06
DX: J10.1 Influenza due to other identified influenza virus with other respiratory manifestations (principal); F17.210 Nicotine dependence, cigarettes, uncomplicated; Z20.822 Contact with and (suspected) exposure to COVID-19
CPT/HCPCS: 87636; 99283

== ENCOUNTER 2022-05-22 14:12 | Emergency (ER) | payer BC, MEDICAID ==
[~2022-05-22] VITALS: Ht 162 cm; Wt 81.0 kg
[~2022-05-22 14:12] MED LIST changes: +[UNRECOGNIZED DRUG - CODE] PO
[2022-05-22 15:05] LABS: POTASSIUM 3.3 MMOL/L (3.6-5.0)
[2022-05-22 15:06] LABS: CALCIUM 8.6 MG/DL (8.5-10.1)
[2022-05-22 15:10] LABS: CREATININE SERUM 0.83 MG/DL (0.60-1.30)
--- NOTE | 2022-05-22 15:16 | ED Respiratory ---
General Chief Complaint: Respiratory Problems Stated Complaint: SOA Nursing Triage Note: ARRIVED VIA AMB TO TRIAGE WITH COMPLAINTS OF SOA, CHILLING, LEFT RIB PAIN WITH DEEP BREATH. Source: patient Exam Limitations: no limitations History of Present Illness Date Seen by Provider: May 22, 2022 Time Seen by Provider: 14:30 Initial Comments Patient is a 46-year-old female who presents to the emergency department today with a chief complaint of feeling short of breath, having chills, left-sided chest pain. Onset this morning. Rather sudden. No fevers noted at home. She has had a mildly productive cough. 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 She is a smoker. She is not COVID vaccinated. No problems with bowel or bladder. No rashes joint pain or swelling. All other review of systems reviewed and negative except as stated Timing/Duration: this morning Severity: moderate Prior Episodes/Possible Cause: no prior episodes Associated Symptoms: cough, shortness of breath Allergies and Home Medications Allergies Coded Allergies: No Known Drug Allergies (Unverified , 10/13/12) Patient Home Medication List Home Medication List Reviewed: Yes Baloxavir Marboxil (Xofluza) 20 Mg Tablet, 40 MG PO ONCE Prescribed by: PINEDA HYDE on 10/29/21 0201 Butalb/Acetaminophen/Caffeine (Fvvjso-Easmlpsa-Nume 50-325-40) 1 Each Tablet, 1 TAB PO BID PRN for MIGRAINE, (Reported) Entered as Reported by: NORA CARD on 04/12/19 0928 Cefdinir (Cefdinir) 300 Mg Capsule, 300 MG PO BID Prescribed by: TENZIN FRANZ on 04/12/19 0933 Doxycycline Hyclate (Doxycycline Hyclate) 100 Mg Tablet, 100 MG PO BID Prescribed by: KERRI MENDEZ on 04/14/21 1718 Elviteg/Cindy/Emtric/Tenofo Ala (Genvoya Tablet) 1 Each Tablet, 1 TAB PO DAILY, (Reported) Entered as Reported by: LENNY JAMA on 11/16/17 1722 Ibuprofen (Advil) 200 Mg Tablet, 800 MG PO TID PRN for PAIN-MILD, (Reported) Entered as Reported by: ZURI HWANG on 11/20/17 0855 Mupirocin (Mupirocin) 22 Gm Oint...g., 22 GM TP BID Prescribed by: PINEDA HYDE on 04/25/20 0413 Naproxen Sodium (Aleve) 220 Mg Tablet, 440 MG PO Q8H PRN for PAIN-MILD, (Reported) Entered as Reported by: ZURI HWANG on 11/20/17 0855 Sulfamethoxazole/Trimethoprim (Bactrim Ds Tablet) 1 Each Tablet, 1 EACH PO BID Prescribed by: PINEDA HYDE on 04/25/20412 Review of Systems Review of Systems Constitutional: see HPI EENTM: no symptoms reported Respiratory: cough; No hemoptysis; phlegm, short of breath; No wheezing Cardiovascular: chest pain Gastrointestinal: no symptoms reported Genitourinary: no symptoms reported : No Musculoskeletal: no symptoms reported Skin: no symptoms reported Psychiatric/Neurological: No Symptoms Reported All Other Systems Reviewed Negative Unless Noted: Yes Past Qvlchom-Yqhhzg-Dygqfj Hx Patient Social History Tobacco Use?: Yes Smoking Status: Current Everyday Smoker Substance use?: No Alcohol Use?: No Immunizations Up To Date Tetanus Booster (TDap): Unknown PED Vaccines UTD: No Seasonal Allergies Seasonal Allergies: No Past Medical History Surgeries: No Respiratory: No Cardiac: No Neurological: Yes Headaches /Migraines Reproductive Disorders: Yes Female Reproductive Disorders: Denies Sexually Transmitted Disease: Yes HIV/AIDS: Yes Genitourinary: No Gastrointestinal: No Musculoskeletal: No Endocrine: No HEENT: No Cancer: No Psychosocial: Yes Anxiety Integumentary: Yes (CELLULITIS) Blood Disorders: No Adverse Reaction/Blood Tranf: No Family Medical History Patient reports no known family medical history. Physical Exam Vital Signs - First Documented 05/22/22 14:14 Temp 37.2 Pulse 127 Resp 16 B/P (MAP) 131/81 (98) Pulse Ox 98 O2 Delivery Room Air Capillary Refill : Less Than 3 Seconds Height: 5'4.00" Weight: 146lbs. 3.0oz. 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, no motor/sensory deficits, alert, oriented x 3, depressed affect (tearful) Skin: normal color, warm/dry Progress/Results/Core Measures Suspected Sepsis SIRS Temperature: Pulse: 127 Respiratory Rate: 16 Laboratory Tests 05/22/22 14:45: White Blood Count 13.5H Blood Pressure 131 /81 Mean: 98 Laboratory Tests 05/22/22 14:45: Creatinine 0.83, Platelet Count 192 Results/Orders Lab Results Laboratory Tests Test 05/22/22 14:40 05/22/22 14:45 Range/Units SARS-CoV-2 RNA (RT-PCR) Not Detected Not Detecte White Blood Count 13.5 H 4.3-11.0 10^3/uL Red Blood Count 4.11 3.80-5.11 10^6/uL Hemoglobin 13.0 11.5-16.0 g/dL Hematocrit 38 35-52 % Mean Corpuscular Volume 93 80-99 fL Mean Corpuscular Hemoglobin 32 25-34 pg Mean Corpuscular Hemoglobin Concent 34 32-36 g/dL Red Cell Distribution Width 12.9 10.0-14.5 % Platelet Count 192 130-400 10^3/uL Mean Platelet Volume 9.7 9.0-12.2 fL Immature Granulocyte % (Auto) 0 % Neutrophils (%) (Auto) 90 H 42-75 % Lymphocytes (%) (Auto) 7 L 12-44 % Monocytes (%) (Auto) 2 0-12 % Eosinophils (%) (Auto) 0 0-10 % Basophils (%) (Auto) 0 0-10 % Neutrophils # (Auto) 12.2 H 1.8-7.8 10^3/uL Lymphocytes # (Auto) 1.0 1.0-4.0 10^3/uL Monocytes # (Auto) 0.3 0.0-1.0 10^3/uL Eosinophils # (Auto) 0.0 0.0-0.3 10^3/uL Basophils # (Auto) 0.0 0.0-0.1 10^3/uL Immature Granulocyte # (Auto) 0.1 0.0-0.1 10^3/uL D-Dimer < 0.27 0.00-0.49 UG/ML Sodium Level 137 135-145 MMOL/L Potassium Level 3.3 L 3.6-5.0 MMOL/L Chloride Level 103 98-107 MMOL/L Carbon Dioxide Level 22 21-32 MMOL/L Anion Gap 12 5-14 MMOL/L Blood Urea Nitrogen 5 L 7-18 MG/DL Creatinine 0.83 0.60-1.30 MG/DL Estimat Glomerular Filtration Rate 89 BUN/Creatinine Ratio 6 Glucose Level 99 70-105 MG/DL Calcium Level 8.6 8.5-10.1 MG/DL My Orders Orders - SAIRA VALENZUELA MD Ed Iv/Invasive Line Start (05/22/22 14:36) Basic Metabolic Panel (05/22/22 14:36) Chest Pa/Lat (2 View) (05/22/22 14:36) Fibrin Degradation Products (05/22/22 14:36) Covid 19 Inhouse Test (05/22/22 14:36) Isolation Central Supply Req (05/22/22 14:36) Cbc With Automated Diff (05/22/22 15:44) Azithromycin Tablet (Zithromax Tablet) (05/22/22 16:00) Ketorolac Injection (Toradol Injection) (05/22/22 16:00) Manual Differential (05/22/22 14:45) Medications Given in ED Current Medications Medications Dose Ordered Sig/Naomi Route Start Time Stop Time Status Last Admin Dose Admin Azithromycin 500 mg ONCE ONCE PO 05/22/22 16:00 05/22/22 16:01 DC 05/22/22 16:03 500 MG Ketorolac Tromethamine 15 mg ONCE ONCE IVP 05/22/22 16:00 05/22/22 16:01 DC 05/22/22 16:03 15 MG Vital Signs/I&O 05/22/22 14:14 Temp 37.2 Pulse 127 Resp 16 B/P (MAP) 131/81 (98) Pulse Ox 98 O2 Delivery Room Air Capillary Refill : Less Than 3 Seconds Blood Pressure Mean: 98 Diagnostic Imaging Diagonstic Imaging: Xray Plain Films/CT/US/NM/MRI: chest Comments [facility]. [place], [place] NAME: MANDO DELUCA [facility] REC#: [id number] PT STATUS: REG ER : 1975 PHYSICIAN: SAIRA VALENZUELA MD ADMIT DATE: 05/22/22/ER Draft Date of Exam:05/22/22 CHEST PA/LAT (2 VIEW) INDICATION: Cough and chest pain. TECHNIQUE: PA and lateral views of the chest are obtained with comparison made to study of 07/05/2014. FINDINGS: There has been development of focal peripheral airspace disease in the left lower lobe. This is somewhat rounded. Otherwise, the lungs appear clear. There is no pneumothorax or significant pleural fluid. IMPRESSION: Peripheral airspace disease has developed in left lower lobe, laterally. This may represent pneumonia. Other considerations would include pulmonary infarct in the proper setting and clinical correlation is recommended. Dictated on workstation # [id number] Dict: 05/22/22 1532 Trans: 05/22/22 1537 [id number] Interpreted by: JAYESH BERMAN MD Electronically signed by: Counseling-Symptomatic: 3-10 Minutes Follow-up with PCP to: Discuss Further Options Departure Impression Primary Impression: Pneumonia Qualified Codes: J18.9 - Pneumonia, unspecified organism Disposition: HOME, SELF-CARE Condition: Improved Departure-Patient Inst. Decision time for Depature: 16:25 Referrals: [facility] [place] (PCP/Family) Primary Care Physician Patient Instructions: Pneumonia, Adult (DC) Add. Discharge Instructions: Drink plenty of fluids to stay well-hydrated. You have been given your first dose of antibiotics here in the emergency room. You can take your prescriptions to the pharmacy and start the additional antibiotics tomorrow. I have given your prescription for hydrocodone you can take 1 every 6 hours with an additional extra strength Tylenol as needed for pain. Hydrocodone can cause constipation. Take a stool softener daily while taking this pain medication. If you have worsening pain especially with worsening shortness of breath, high fever or any other emergent, concerning symptoms please come back to the emergency room for reevaluation. Follow-up with [facility] clinic in a week to 10 days. You should definitely stop smoking. Scripts Hydrocodone/Acetaminophen (Hydrocodone-Acetamin 5-325 mg) 5 Mg-325 Mg Tablet 1 TAB PO Q6H PRN for PAIN-MODERATE (5-7), #10 TAB Prov: SAIRA VALENZUELA MD 05/22/22 Azithromycin (Azithromycin) 250 Mg Tablet 250 MG PO DAILY, #4 TAB 0 Refills Prov: SAIRA VALENZUELA MD 05/22/22 Amoxicillin/Potassium Clav (Amox Tr-K Clv 875-125 mg Tab) 875 Mg-125 Mg Tablet 1 EACH PO BID for 7 Days, #14 TAB Prov: SAIRA VALENZUELA MD 05/22/22 Copy Copies To 1: FLAKITO ALVES KATHRYN M MD May 22, 2022 15:16
--- NOTE | 2022-05-22 15:38 | Diagnostic Imaging Report ---
INDICATION: Cough and chest pain. TECHNIQUE: PA and lateral views of the chest are obtained with comparison made to study of 07/05/2014. FINDINGS: There has been development of focal peripheral airspace disease in the left lower lobe. This is somewhat rounded. Otherwise, the lungs appear clear. There is no pneumothorax or significant pleural fluid. IMPRESSION: Peripheral airspace disease has developed in left lower lobe, laterally. This may represent pneumonia. Other considerations would include pulmonary infarct in the proper setting and clinical correlation is recommended. Dictated by: Dictated on workstation # [id number]
[2022-05-22] MEDS ORDERED: KETOROLAC 30 MG/ML VIAL IVP ONE (16:00)
[2022-05-22] MEDS ORDERED: AZITHROMYCIN 250 MG TAB (ZITHROMAX) PO ONE (16:00)
[2022-05-22 16:17] LABS: BASOPHILS % (AUTO) 0 % (0-10); EOSINOPHILS % (AUTO) 0 % (0-10); HEMATOCRIT 38 % (35-52); LYMPHOCYTES % (AUTO) 7 % (12-44); MEAN CORPUSCULAR HEMOGLOBIN 32 pg (25-34); MEAN CORPUSCULAR HGB CONC 34 g/dL (32-36); MEAN CORPUSCULAR VOLUME 93 fL (80-99); MEAN PLATELET VOLUME 9.7 fL (9.0-12.2); MONOCYTES # (AUTO) 0.3 10^3/uL (0.0-1.0); MONOCYTES % (AUTO) 2 % (0-12); NEUTROPHILS # (AUTO) 12.2 10^3/uL (1.8-7.8); NEUTROPHILS % (AUTO) 90 % (42-75); PLATELET COUNT 192 10^3/uL (130-400); WHITE BLOOD COUNT 13.5 10^3/uL (4.3-11.0)
[2022-05-22] MEDS ORDERED: AZIT250T12 PO (16:26)
[2022-05-22] MEDS ORDERED: AMOX1TAB12 PO (16:26)
[2022-05-22] MEDS ORDERED: ACHD5005 PO (16:26)
[2022-05-22] MEDS ORDERED: HYDROcodone/APAP 5 MG/325 MG (LORTAB) TAB PO ONE (16:30)
[2022-05-22 16:39] LABS: LYMPHOCYTES % (MANUAL) 5 %; MONOCYTES % (MANUAL) 6 %; NEUTROPHILS % (MANUAL) 89 %; RBC MORPH NORMAL
[2022-05-22 16:52] VITALS: BP 96/81
== END 2022-05-22 16:52 | disposition home or self-care (01) ==
LOC: EDUNIT# 14:12 → ER 14:14
DX: J18.9 Pneumonia, unspecified organism (principal); F17.200 Nicotine dependence, unspecified, uncomplicated; Z20.822 Contact with and (suspected) exposure to COVID-19; Z28.310 Unvaccinated for COVID-19
CPT/HCPCS: 36415; 71046; 80048; 85007; 85027; 85379; 87636

== ENCOUNTER 2022-05-30 10:08 | Observation (INO) | payer BC, MEDICAID ==
[~2022-05-30] VITALS: Ht 162.5 cm; Wt 68.9 kg
[~2022-05-30 10:08] MED LIST changes: +ACHD5005 PO; +AMOX1TAB12 PO; +AZIT250T12 PO
[2022-05-30] MEDS ORDERED: fentaNYL INJ 100 MCG/2 ML AMP IVP ONE (10:30)
[2022-05-30] MEDS ORDERED: NS IV 1000 ML 1,000 ML IV SCH (10:30)
[2022-05-30 11:08] LABS: ALBUMIN 3.9 GM/DL (3.2-4.5)
[2022-05-30 11:09] LABS: POTASSIUM 4.1 MMOL/L (3.6-5.0)
[2022-05-30 11:10] LABS: CALCIUM 9.5 MG/DL (8.5-10.1)
[2022-05-30 11:11] LABS: TOTAL PROTEIN 8.3 GM/DL (6.4-8.2)
[2022-05-30 11:12] LABS: BASOPHILS # (AUTO) 0.1 10^3/uL (0.0-0.1); BASOPHILS % (AUTO) 1 % (0-10); EOSINOPHILS # (AUTO) 0.3 10^3/uL (0.0-0.3); EOSINOPHILS % (AUTO) 4 % (0-10); HEMATOCRIT 41 % (35-52); HEMOGLOBIN 13.8 g/dL (11.5-16.0); LYMPHOCYTES # (AUTO) 2.3 10^3/uL (1.0-4.0); LYMPHOCYTES % (AUTO) 26 % (12-44); MEAN CORPUSCULAR HEMOGLOBIN 32 pg (25-34); MEAN CORPUSCULAR HGB CONC 34 g/dL (32-36); MEAN CORPUSCULAR VOLUME 94 fL (80-99); MEAN PLATELET VOLUME 9.4 fL (9.0-12.2); MONOCYTES # (AUTO) 0.8 10^3/uL (0.0-1.0); MONOCYTES % (AUTO) 9 % (0-12); NEUTROPHILS # (AUTO) 5.1 10^3/uL (1.8-7.8); NEUTROPHILS % (AUTO) 59 % (42-75); PLATELET COUNT 351 10^3/uL (130-400); WHITE BLOOD COUNT 8.6 10^3/uL (4.3-11.0)
--- NOTE | 2022-05-30 11:12 | Diagnostic Imaging Report ---
INDICATION: Dyspnea AP view of chest is obtained with comparison made to study of 04/11/2019. There is airspace disease in the left lung base likely representing pneumonitis or pneumonia in the lower lobe. Lungs are otherwise clear. There is no pneumothorax. IMPRESSION: Left lower lobe pneumonitis or pneumonia. This location would indicate possibility of aspiration. Dictated by: Dictated on workstation # [id number]
[2022-05-30 11:13] LABS: BILIRUBIN,TOTAL 0.3 MG/DL (0.1-1.0)
[2022-05-30 11:15] LABS: CREATININE SERUM 0.96 MG/DL (0.60-1.30)
[2022-05-30] MEDS ORDERED: KETOROLAC 30 MG/ML VIAL IVP ONE (12:45)
[2022-05-30] MEDS ORDERED: cefTRIAXone 1 GM PRE-MIX 50 ML IV ONE (12:45)
[2022-05-30] MEDS ORDERED: CATHETER FLUSH 10 ML SYR IV PRN (13:15)
[2022-05-30] MEDS ORDERED: IOHEXOL 350 MG/ML 100 ML (OMNIPAQUE 350) VIAL IV ONE (13:15)
[2022-05-30] MEDS ORDERED: NS 100 ML (IVPB) BAG IV ONE (13:15)
--- NOTE | 2022-05-30 13:49 | Diagnostic Imaging Report ---
PROCEDURE: CT chest with contrast only. TECHNIQUE: Multiple contiguous axial images were obtained through the chest after administration of intravenous contrast. Auto Exposure Controls were utilized during the CT exam to meet ALARA standards for radiation dose reduction. INDICATION: Dyspnea after failure of therapy for pneumonia. FINDINGS: There is a small left pleural effusion. There is consolidation involving primarily the anterior and lateral basilar aspects of left lower lobe. Minimal bullae or pneumatocele are seen in the left apex. Left upper lobe is otherwise unremarkable. Right lung is clear. There is no pathologically enlarged adenopathy seen within the thorax. There is a small amount of fluid or debris in the dependent portion of the trachea. IMPRESSION: Left lower lobe pneumonia. This may be bronchopneumonia and aspiration pneumonitis is suspected. There is a small left pleural effusion with mild fluid, mucous or other debris within the tracheal lumen. Dictated by: Dictated on workstation # [id number]
--- NOTE | 2022-05-30 14:19 | ED Respiratory ---
General Chief Complaint: Respiratory Problems Stated Complaint: SOA Nursing Triage Note: ARRIVES TO ED WITH A C/O CONTINUED SOA WITH ACTIVITY, PATIENT WAS SEEN AND TREATED FOR PNEUMONIA ON WITH 2 ANTIBIOTICS. PATIENT IS TEARFUL AND STATES PAIN IS A 10/10 ON PAIN SCALE IN HER LEFT RIB AREA. Source: patient Exam Limitations: no limitations History of Present Illness Date Seen by Provider: May 30, 2022 Time Seen by Provider: 10:00 Initial Comments Patient brayan 46yo female smoker - the ER with a complaint of left sided lower chest wall pain. She has had it basically for the last week to 10 days. I saw her in the ER on the and diagnosed her with a CAP. PLaced her on azithromycin and Augmentin. She claims that she took her antibiotics. She does smoke and continues to do so. No use of inhalers. She sates in the last 2-3 days her pain has intensified. It hurts to take a deep breath and cough and move. Taking Ibuprofen. No N/v. no diarrhea. no urinary complaints. Subjective fever. No rashes. No chronic medical issues. (history of of meth use per review of medical record). All other ROS reviewed and negative except as stated. Timing/Duration: week, getting worse Severity: severe Prior Episodes/Possible Cause: illness exposure Associated Symptoms: chest pain/soreness, cough, shortness of breath Allergies and Home Medications Allergies Coded Allergies: No Known Drug Allergies (Unverified , 05/30/22) Patient Home Medication List Home Medication List Reviewed: Yes Elviteg/Cindy/Emtric/Tenofo Ala (Genvoya Tablet) 150 Mg-150 Mg-200 Mg-10 Mg Tablet, 1 EA PO DAILY, (Reported) Entered as Reported by: LENNY JAMA on 11/16/171721 Last Action: Reviewed Discontinued Medications Amoxicillin/Potassium Clav (Amox Tr-K Clv 875-125 mg Tab) 875 Mg-125 Mg Tablet, 1 EACH PO BID Discontinued Reason: No Longer Taking Prescribed by: SAIRA VALENZUELA on 05/22/221625 Last Action: Discontinued Azithromycin (Azithromycin) 250 Mg Tablet, 250 MG PO DAILY Discontinued Reason: No Longer Taking Prescribed by: SAIRA VALENZUELA on 05/22/226 Last Action: Discontinued Baloxavir Marboxil (Xofluza) 20 Mg Tablet, 40 MG PO ONCE Discontinued Reason: No Longer Taking Prescribed by: PINEDA HYDE on 10/29/21 0201 Last Action: Discontinued Butalb/Acetaminophen/Caffeine (Srlnvf-Ufqbisua-Ojfy 50-325-40) 1 Each Tablet, 1 TAB PO BID PRN for MIGRAINE, (Reported) Discontinued Reason: No Longer Taking Entered as Reported by: NORA CARD on 04/12/19927 Last Action: Discontinued Cefdinir (Cefdinir) 300 Mg Capsule, 300 MG PO BID Discontinued Reason: No Longer Taking Prescribed by: TENZIN FRANZ on 04/12/19932 Last Action: Discontinued Doxycycline Hyclate (Doxycycline Hyclate) 100 Mg Tablet, 100 MG PO BID Discontinued Reason: No Longer Taking Prescribed by: KERRI MENDEZ on 04/14/21 1718 Last Action: Discontinued Hydrocodone/Acetaminophen (Hydrocodone-Acetamin 5-325 mg) 5 Mg-325 Mg Tablet, 1 TAB PO Q6H PRN for PAIN-MODERATE (5-7) Discontinued Reason: No Longer Taking Prescribed by: SAIRA VALENZUELA on 05/22/22 1626 Last Action: Discontinued Ibuprofen (Advil) 200 Mg Tablet, 800 MG PO TID PRN for PAIN-MILD, (Reported) Discontinued Reason: No Longer Taking Entered as Reported by: ZURI HWANG on 11/20/17854 Last Action: Discontinued Mupirocin (Mupirocin) 22 Gm Oint...g., 22 GM TP BID Discontinued Reason: No Longer Taking Prescribed by: PINEDA HYDE on 04/25/20412 Last Action: Discontinued Naproxen Sodium (Aleve) 220 Mg Tablet, 440 MG PO Q8H PRN for PAIN-MILD, (Reported) Discontinued Reason: No Longer Taking Entered as Reported by: ZURI HWANG on 11/20/17854 Last Action: Discontinued Sulfamethoxazole/Trimethoprim (Bactrim Ds Tablet) 1 Each Tablet, 1 EACH PO BID Discontinued Reason: No Longer Taking Prescribed by: PINEDA HYDE on 04/25/20412 Last Action: Discontinued Review of Systems Review of Systems Constitutional: see HPI, malaise, weakness EENTM: no symptoms reported Respiratory: short of breath Cardiovascular: chest pain Gastrointestinal: no symptoms reported Genitourinary: no symptoms reported Musculoskeletal: no symptoms reported Skin: no symptoms reported All Other Systems Reviewed Negative Unless Noted: Yes Past Lzmfjok-Vnatve-Fzdgcj Hx Patient Social History Tobacco Use?: Yes Tobacco type used: Cigarettes Smoking Status: Current Everyday Smoker Substance use?: No Alcohol Use?: No Pt feels they are or have been: No Immunizations Up To Date Tetanus Booster (TDap): Unknown PED Vaccines UTD: No First/Initial COVID19 Vaccinat: DECLINED Seasonal Allergies Seasonal Allergies: No Past Medical History Surgery/Hospitalization HX: HIV Surgeries: No Respiratory: No Cardiac: No Neurological: Yes Headaches /Migraines Last Menstrual Period: May 02, 2022 Reproductive Disorders: Yes Female Reproductive Disorders: Denies Sexually Transmitted Disease: Yes HIV/AIDS: Yes Genitourinary: No Gastrointestinal: No Musculoskeletal: No Endocrine: No HEENT: No Cancer: No Psychosocial: Yes Anxiety Integumentary: Yes (CELLULITIS) Blood Disorders: No Adverse Reaction/Blood Tranf: No Family Medical History Patient reports no known family medical history. Physical Exam Vital Signs - First Documented 05/30/22 10:10 Temp 36.4 Pulse 89 Resp 20 B/P (MAP) 123/43 (69) Pulse Ox 98 O2 Delivery Room Air Capillary Refill : Less Than 3 Seconds Height: 5'4.00" Weight: 146lbs. 3.0oz. 66.396226li; 30.00 BMI Method:Estimated General Appearance: WD/WN, moderate distress Eyes: Bilateral Eye Normal Inspection, Bilateral Eye PERRL, Bilateral Eye EOMI HEENT: PERRL/EOMI Neck: full range of motion, normal inspection Respiratory: no respiratory distress, no accessory muscle use, other (short shallow breaths; pleuritic pain - crackles left lateral lower lung veras; O2 sats 97% on room air) Cardiovascular: regular rate, rhythm Gastrointestinal: normal bowel sounds, non tender, soft Extremities: normal range of motion, non-tender, normal inspection, no pedal edema Neurologic/Psychiatric: alert, normal mood/affect, oriented x 3 Skin: normal color, warm/dry Focused Exam Lactate Level 05/30/22 12:55: Lactic Acid Level 1.47 Lactic Acid Level Laboratory Tests Test 05/30/22 12:55 Lactic Acid Level 1.47 MMOL/L (0.50-2.00) Progress/Results/Core Measures Suspected Sepsis SIRS Temperature: Pulse: 89 Respiratory Rate: 20 Laboratory Tests 05/30/22 10:40: White Blood Count 8.6 Blood Pressure 123 /43 Mean: 69 05/30/22 12:55: Lactic Acid Level 1.47 Laboratory Tests 05/30/22 10:40: Creatinine 0.96, Platelet Count 351, Total Bilirubin 0.3 Results/Orders Lab Results Laboratory Tests Test 05/30/22 10:40 05/30/22 12:55 Range/Units White Blood Count 8.6 4.3-11.0 10^3/uL Red Blood Count 4.33 3.80-5.11 10^6/uL Hemoglobin 13.8 11.5-16.0 g/dL Hematocrit 41 35-52 % Mean Corpuscular Volume 94 80-99 fL Mean Corpuscular Hemoglobin 32 25-34 pg Mean Corpuscular Hemoglobin Concent 34 32-36 g/dL Red Cell Distribution Width 12.8 10.0-14.5 % Platelet Count 351 130-400 10^3/uL Mean Platelet Volume 9.4 9.0-12.2 fL Immature Granulocyte % (Auto) 1 % Neutrophils (%) (Auto) 59 42-75 % Lymphocytes (%) (Auto) 26 12-44 % Monocytes (%) (Auto) 9 0-12 % Eosinophils (%) (Auto) 4 0-10 % Basophils (%) (Auto) 1 0-10 % Neutrophils # (Auto) 5.1 1.8-7.8 10^3/uL Lymphocytes # (Auto) 2.3 1.0-4.0 10^3/uL Monocytes # (Auto) 0.8 0.0-1.0 10^3/uL Eosinophils # (Auto) 0.3 0.0-0.3 10^3/uL Basophils # (Auto) 0.1 0.0-0.1 10^3/uL Immature Granulocyte # (Auto) 0.1 0.0-0.1 10^3/uL Sodium Level 140 135-145 MMOL/L Potassium Level 4.1 3.6-5.0 MMOL/L Chloride Level 103 98-107 MMOL/L Carbon Dioxide Level 27 21-32 MMOL/L Anion Gap 10 5-14 MMOL/L Blood Urea Nitrogen 12 7-18 MG/DL Creatinine 0.96 0.60-1.30 MG/DL Estimat Glomerular Filtration Rate 74 BUN/Creatinine Ratio 13 Glucose Level 103 70-105 MG/DL Calcium Level 9.5 8.5-10.1 MG/DL Corrected Calcium 9.6 8.5-10.1 MG/DL Total Bilirubin 0.3 0.1-1.0 MG/DL Aspartate Amino Transf (AST/SGOT) 16 5-34 U/L Alanine Aminotransferase (ALT/SGPT) 18 0-55 U/L Alkaline Phosphatase 67 40-136 U/L Total Protein 8.3 H 6.4-8.2 GM/DL Albumin 3.9 3.2-4.5 GM/DL Procalcitonin 0.26 H <0.10 NG/ML Lactic Acid Level 1.47 0.50-2.00 MMOL/L My Orders Orders - SAIRA VALENZUELA MD Ed Iv/Invasive Line Start (05/30/22 10:20) Cbc With Automated Diff (05/30/22 10:20) Comprehensive Metabolic Panel (05/30/22 10:20) Procalcitonin (Pct) (05/30/22 10:20) Chest 1 View, Ap/Pa Only (05/30/22 10:20) Ns Iv 1000 Ml (Sodium Chloride 0.9%) (05/30/22 10:30) Fentanyl Inj (Sublimaze Injection) (05/30/22 10:30) Ct Chest W (05/30/22 12:39) Ceftriaxone 1 Gm Pre-Mix (Rocephin 1 Gm (05/30/22 12:45) Blood Culture (05/30/22 12:41) Lactic Acid Analyzer (05/30/22 12:41) Ketorolac Injection (Toradol Injection) (05/30/22 12:45) Iohexol Injection (Omnipaque 350 Mg/Ml 1 (05/30/22 13:15) Sodium Chloride Flush (Catheter Flush Sy (05/30/22 13:15) Ns (Ivpb) (Sodium Chloride 0.9% Ivpb Bag (05/30/22 13:15) Medications Given in ED Vital Signs/I&O 05/30/22 10:10 Temp 36.4 Pulse 89 Resp 20 B/P (MAP) 123/43 (69) Pulse Ox 98 O2 Delivery Room Air 05/31/22 00:00 Intake Total 1050 ml Balance 1050 ml Capillary Refill : Less Than 3 Seconds Blood Pressure Mean: 69 Diagnostic Imaging Diagonstic Imaging: CT Plain Films/CT/US/NM/MRI: chest Comments [facility] [place] NAME: MANDO DELUCA [facility] REC#: [id number] PT STATUS: REG ER : 1975 PHYSICIAN: SAIRA VALENZUELA MD ADMIT DATE: 05/30/22/ER Draft Date of Exam:05/30/22 CT CHEST W PROCEDURE: CT chest with contrast only. TECHNIQUE: Multiple contiguous axial images were obtained through the chest after administration of intravenous contrast. Auto Exposure Controls were utilized during the CT exam to meet ALARA standards for radiation dose reduction. INDICATION: Dyspnea after failure of therapy for pneumonia. FINDINGS: There is a small left pleural effusion. There is consolidation involving primarily the anterior and lateral basilar aspects of left lower lobe. Minimal bullae or pneumatocele are seen in the left apex. Left upper lobe is otherwise unremarkable. Right lung is clear. There is no pathologically enlarged adenopathy seen within the thorax. There is a small amount of fluid or debris in the dependent portion of the trachea. IMPRESSION: Left lower lobe pneumonia. This may be bronchopneumonia and aspiration pneumonitis is suspected. There is a small left pleural effusion with mild fluid, mucous or other debris within the tracheal lumen. Dictated on workstation # [id number] Dict: 05/30/22 1340 Trans: 05/30/22 1349 [id number] Interpreted by: JAYESH BERMAN MD Electronically signed by: Diagonstic Imaging: Xray Plain Films/CT/US/NM/MRI: chest Comments [facility]. [place], [place] NAME: [facility] REC#: [id number] PT STATUS: REG ER : 1975 PHYSICIAN: SAIRA VALENZUELA MD ADMIT DATE: 05/30/22/ER Signed Date of Exam:05/30/22 CHEST 1 VIEW, AP/PA ONLY INDICATION: Dyspnea AP view of chest is obtained with comparison made to study of 04/11/2019. There is airspace disease in the left lung base likely representing pneumonitis or pneumonia in the lower lobe. Lungs are otherwise clear. There is no pneumothorax. IMPRESSION: Left lower lobe pneumonitis or pneumonia. This location would indicate possibility of aspiration. Dictated by: Dictated on workstation # [id number] Dict: 05/30/22 1110 Trans: 05/30/22 1143 [facility] [id number] Interpreted by: JAYESH BERMAN MD Electronically signed by: JAYESH BERMAN MD 05/30/22 1143 Departure Communication (Admissions) Time/Spoke to Admitting Phy: 14:[address] Gonzales Impression Primary Impression: Pneumonia Qualified Codes: J18.9 - Pneumonia, unspecified organism Disposition: ADMITTED INPATIENT Condition: Stable Admissions Decision to Admit Reason: Admit from ER (General) Decision to Admit/Date: May 30, 2022 Time/Decision to Admit Time: 14:20 Departure-Patient Inst. Referrals: [facility] (PCP/Family) Primary Care Physician SAIRA VALENZUELA MD May 30, 2022 14:19
[2022-05-30] MEDS ORDERED: KETOROLAC 15 MG/ML VIAL IV PRN (15:30)
[2022-05-30] MEDS ORDERED: ONDANSETRON 4 MG/2 ML (SDV) Z0FRAN IV PRN (15:30)
[2022-05-30 15:39] VITALS: BP 126/83
[2022-05-30] MEDS: metroNIDAZOLE 500 MG/100 ML IVPB (PRE-MIX) IV SCH ×2 (15:54→23:46)
[2022-05-30] MEDS: NS IV 1000 ML 1,000 ML IV SCH (15:54)
[2022-05-30 15:56] VITALS: BP 113/68
[2022-05-30] MEDS ORDERED: RT-ALBUTEROL SULF 2.5 MG/3 ML PRE-MIX VIAL INH PRN (16:15)
[2022-05-30] MEDS ORDERED: FLU QUADRIvalent (6 months+) 60 mcg/0.5 ml 2022-23 (Fluzone) IM ONE (17:30)
[2022-05-30 19:28] VITALS: BP 101/68
[2022-05-30 23:46] VITALS: BP 106/71
[2022-05-31] MEDS: NS IV 1000 ML 1,000 ML IV SCH ×2 (01:32→09:01)
[2022-05-31 03:06] VITALS: BP 97/59
[2022-05-31 05:36] LABS: BASOPHILS # (AUTO) 0.1 10^3/uL (0.0-0.1); BASOPHILS % (AUTO) 1 % (0-10); EOSINOPHILS # (AUTO) 0.2 10^3/uL (0.0-0.3); EOSINOPHILS % (AUTO) 3 % (0-10); HEMATOCRIT 37 % (35-52); HEMOGLOBIN 12.5 g/dL (11.5-16.0); LYMPHOCYTES # (AUTO) 2.4 10^3/uL (1.0-4.0); LYMPHOCYTES % (AUTO) 32 % (12-44); MEAN CORPUSCULAR HEMOGLOBIN 31 pg (25-34); MEAN CORPUSCULAR HGB CONC 34 g/dL (32-36); MEAN CORPUSCULAR VOLUME 92 fL (80-99); MEAN PLATELET VOLUME 9.7 fL (9.0-12.2); MONOCYTES # (AUTO) 0.5 10^3/uL (0.0-1.0); MONOCYTES % (AUTO) 7 % (0-12); NEUTROPHILS # (AUTO) 4.3 10^3/uL (1.8-7.8); NEUTROPHILS % (AUTO) 56 % (42-75); PLATELET COUNT 242 10^3/uL (130-400); WHITE BLOOD COUNT 7.6 10^3/uL (4.3-11.0)
[2022-05-31 07:36] VITALS: BP 121/76
[2022-05-31 08:47] LABS: ALBUMIN 2.8 GM/DL (3.2-4.5); POTASSIUM 3.9 MMOL/L (3.6-5.0)
[2022-05-31 08:49] LABS: CALCIUM 8.4 MG/DL (8.5-10.1)
[2022-05-31 08:51] LABS: BILIRUBIN,TOTAL 0.3 MG/DL (0.1-1.0)
[2022-05-31 08:53] LABS: CREATININE SERUM 0.74 MG/DL (0.60-1.30)
[2022-05-31] MEDS: metroNIDAZOLE 500 MG/100 ML IVPB (PRE-MIX) IV SCH (08:56)
[2022-05-31] MEDS ORDERED: cefTRIAXone 1 GM/50 ML (PRE-MIX) IV SCH (09:00)
[2022-05-31 11:17] VITALS: BP 105/69
[2022-05-31] MEDS ORDERED: AMOX1TAB12 PO (11:47)
--- NOTE | 2022-05-31 12:52 | Short Stay Summary-Hospitalist ---
RONEN BAKER 05/31/22 1252: History of Present Illness HPI/Chief Complaint Patient is 46 y/o F with history of HIV/AIDS and history of pneumonia about a week ago that presented to the ER with CC of shortness of breath and pleuritic chest pain onset 2 days ago. She reports she was given Azithromycin and Amoxicillin-Clavulanate when she was previously discharged. She is unsure how many of the pills she has taken. Currently her rib pain is at a 7/10 and she does not feel as short of breath. CXR and CT Chest show left lower lobe pneumonia. She also reports that she smokes about a half pack of cigarettes each day. All other labs reviewed. Source: patient Exam Limitations: no limitations Date Seen 05/31/22 Time Seen by a Provider: 11:32 Attending Physician [facility] PCP Admitting Physician: Arelis Gonzales MD Attending Physician: Shayna Cullen DO Referring Physician Date of Admission May 30, 2022 at 14:17 Home Medications & Allergies Home Medications Reviewed patient Home Medication Reconciliation performed by pharmacy medication reconciliations dairy technician and/or nursing. Patients Allergies have been reviewed. Allergies Allergies Coded Allergies No Known Drug Allergies (Unverified05/30/22) Past Medical/Social/Family Hx Patient Social History Tobacco Use?: Yes Tobacco type used: Cigarettes Smoking Status: Current Everyday Smoker Smokeless Tobacco Frequency: Never a User Use of E-Cig and/or Vaping dev: No Substance use?: No Alcohol Use?: No Pt stated abuse/neglect: No Immunizations Up To Date Influenza Vaccine Up-to-Date: No; Not Current First/Initial COVID19 Vaccinat: DECLINED Tetanus Booster (TDap): Unknown Hepatitis A: No Hepatitis B: No TB Skin Test: None Date of Pneumonia Vaccine: Aug 11, 2018 Current Status status: No Advance Directives: No Communicates: Verbally Primary Language: Malaysian Preferred Spoken Language: Malaysian Is interpretation needed?: No Implanted or Applied Medical D: None Past Medical History HIV Positive - diagnosed 2008 Anxiety Mood Disorder Review of Systems Constitutional: No chills, No fever Respiratory: cough, short of breath Cardiovascular: No chest pain; other (pleuritic rib pain over left lower ribs) Physical Exam Physical Exam Vital Signs Vital Signs - First Documented 05/30/22 10:10 Temp 36.4 Pulse 89 Resp 20 B/P (MAP) 123/43 (69) Pulse Ox 98 O2 Delivery Room Air Capillary Refill : Less Than 3 Seconds Height, Weight, BMI Height: 5'4.00" Weight: 146lbs. 3.0oz. 66.250648et; 26.09 BMI Method:Estimated General Appearance: No Apparent Distress Eyes: Bilateral Eye Normal Inspection, Bilateral Eye PERRL, Bilateral Eye EOMI HEENT: Moist Mucous Membranes Respiratory: Lungs Clear, Normal Breath Sounds, No Accessory Muscle Use, No Respiratory Distress Cardiovascular: Regular Rate, Rhythm, No Murmur Extremity: Normal Inspection, Non Tender, No Calf Tenderness, No Pedal Edema Results Results/Procedures Labs Laboratory Tests 05/30/22 10:40 05/31/22 05:15 05/31/22 08:28 Patient resulted labs reviewed. Short Stay Diagnosis Discharge Diagnosis-Short Stay Admission Diagnosis Pneumonia Final Discharge Diagnosis Pneumonia Conclusion Plan Patient will be discharged today. Instructed to continue taking Amoxicillin-Clavulanate as directed. Clinical Quality Measures Smoking Cessation Counseling: Counseling-Symptomatic: 3-10 Minutes SHAYNA CULLEN DO 06/01/22 0602: History of Present Illness HPI/Chief Complaint Patient seen and examined Ready for DC No pain Source: patient Exam Limitations: no limitations Supervisory-Addendum Brief Verification & Attestation Participated in pt care: history, MDM, physical Personally performed: exam, history, MDM, supervision of care Care discussed with: Medical Student Procedures: n/a Results interpretation: Verified all documentation Verification and Attestation of Medical Student E/M Service A medical student performed and documented this service in my presence. I review ed and verified all information documented by the medical student and made modifications to such information, when appropriate. I personally performed the physical exam and medical decision making. Shayna Cullen Jun 01, 2022,06:01 RONEN BAKER May 31, 2022 12:52 SHAYNA CULLEN DO Jun 01, 2022 06:02
[2022-05-31 14:41] VITALS: BP 105/69
== END 2022-05-31 11:44 | disposition home or self-care (01) ==
LOC: EDUNIT# 10:08 → ER 10:09 → 4TH 14:17 → UNDOADMOB 14:17 → 4TH 15:10 → UNDODISOB 05-31 11:44
PROVIDERS: ADMIT Family Medicine; ATTEND Internal Medicine
DX: J18.9 Pneumonia, unspecified organism (principal); F17.210 Nicotine dependence, cigarettes, uncomplicated; Z79.899 Other long term (current) drug therapy
CPT/HCPCS: 36415; 71045; 71260; 80053; 83605; 84145; 85025; 87040; 94760; 96366; 96376; G0378

== ENCOUNTER 2022-06-03 22:26 | Emergency (ER) | payer BC, MEDICAID ==
[2022-06-03] MEDS ORDERED: CEFEPIME INJECTION 1,000 MG in NS (IVPB) 50 ML IV ONE (23:00)
[2022-06-03] MEDS ORDERED: LACTATED RINGERS 1,000 ML IV ONE (23:00)
[2022-06-03 23:04] LABS: BASOPHILS # (AUTO) 0.1 10^3/uL (0.0-0.1); BASOPHILS % (AUTO) 1 % (0-10); EOSINOPHILS # (AUTO) 0.2 10^3/uL (0.0-0.3); EOSINOPHILS % (AUTO) 2 % (0-10); HEMATOCRIT 39 % (35-52); LYMPHOCYTES # (AUTO) 1.9 10^3/uL (1.0-4.0); LYMPHOCYTES % (AUTO) 22 % (12-44); MEAN CORPUSCULAR HEMOGLOBIN 32 pg (25-34); MEAN CORPUSCULAR HGB CONC 34 g/dL (32-36); MEAN CORPUSCULAR VOLUME 94 fL (80-99); MEAN PLATELET VOLUME 9.1 fL (9.0-12.2); MONOCYTES # (AUTO) 0.4 10^3/uL (0.0-1.0); MONOCYTES % (AUTO) 5 % (0-12); NEUTROPHILS # (AUTO) 5.8 10^3/uL (1.8-7.8); NEUTROPHILS % (AUTO) 70 % (42-75); PLATELET COUNT 421 10^3/uL (130-400); WHITE BLOOD COUNT 8.3 10^3/uL (4.3-11.0)
[2022-06-03 23:10] LABS: ALBUMIN 3.7 GM/DL (3.2-4.5)
[2022-06-03 23:11] LABS: CHLORIDE 102 MMOL/L (98-107); SODIUM 135 MMOL/L (135-145)
[2022-06-03 23:12] LABS: CALCIUM 9.5 MG/DL (8.5-10.1)
[2022-06-03 23:13] LABS: GLUCOSE 100 MG/DL (70-105)
[2022-06-03 23:14] LABS: CARBON DIOXIDE 22 MMOL/L (21-32); FIBRIN DEGRADATION PRODUCTS 2.76 UG/ML (0.00-0.49); INR 1.1 (0.8-1.4); PROTHROMBIN TIME PATIENT 15.1 SEC (12.2-14.7)
[2022-06-03 23:15] LABS: BILIRUBIN,TOTAL 0.3 MG/DL (0.1-1.0)
[2022-06-03 23:16] LABS: ALKALINE PHOSPHATASE 59 U/L (40-136)
[2022-06-03 23:17] LABS: CREATININE SERUM 0.84 MG/DL (0.60-1.30); GFR ESTIMATED 87
[2022-06-03 23:18] LABS: BUN/CREATININE RATIO 14
[2022-06-03 23:19] LABS: ALANINE AMINOTRANSFERASE 20 U/L (0-55); MAGNESIUM 1.8 MG/DL (1.6-2.4)
[2022-06-03 23:20] LABS: CREATINE KINASE 65 U/L (29-168)
[2022-06-03 23:23] LABS: ERYTHROCYTE SEDIMENTATION RATE 67 MM/HR (0-20)
[2022-06-03 23:27] LABS: CREATINE KINASE MB 1.5 NG/ML (<6.6)
[2022-06-03 23:33] LABS: LIPASE 39 U/L (8-78)
[2022-06-03 23:44] LABS: AMYLASE 109 U/L (25-125)
[2022-06-03] MEDS ORDERED: IOHEXOL 350 MG/ML 100 ML (OMNIPAQUE 350) VIAL IV ONE (23:45)
[2022-06-03] MEDS ORDERED: HOLD METFORMIN - RECEIVED CONTRAST 20 ML VIAL IV SCH (23:45)
[2022-06-03] MEDS ORDERED: NS 100 ML (IVPB) BAG IV ONE (23:45)
[2022-06-04 00:06] LABS: BILIRUBIN,URINE NEGATIVE (NEGATIVE); CLARITY,URINE CLEAR; COLOR,URINE YELLOW; GLUCOSE, URINE (UA) NEGATIVE (NEGATIVE); KETONES,URINE NEGATIVE (NEGATIVE); LEUKOCYTE ESTERASE ,URINE NEGATIVE (NEGATIVE); NITRITE,URINE NEGATIVE (NEGATIVE); PROTEIN,URINE NEGATIVE (NEGATIVE)
[2022-06-04 00:19] LABS: AMPHETAMINE SCREEN, URINE POSITIVE (NEGATIVE); BARBITURATE SCREEN URINE NEGATIVE (NEGATIVE); BENZODIAZEPINES SCREEN URINE NEGATIVE (NEGATIVE); CANNABINOID SCREEN, URINE NEGATIVE (NEGATIVE); COCAINE SCREEN URINE NEGATIVE (NEGATIVE); METHADONE STAT NEGATIVE (NEGATIVE); OPIATE SCREEN URINE POSITIVE (NEGATIVE); OXYCODONE STAT NEGATIVE (NEGATIVE); PROPOXYPHENE STAT NEGATIVE (NEGATIVE); TRICYCLIC ANTIDEPRESSANTS SCRE NEGATIVE (NEGATIVE)
[2022-06-04 00:22] LABS: BACTERIA,URINE NEGATIVE /HPF; WBC,URINE RARE /HPF
[2022-06-04 00:39] LABS: ABG BASE EXCESS 3.2 MMOL/L (-2.5-2.5); ABG OXYGEN SATURATION 37 % (94-100); ABG PCO2 52 MMHG (35-45)
[2022-06-04 00:40] LABS: ABG PO2 24 MMHG (79-93); ALLENS TEST YES-POS; INSPIRED O2 ROOM AIR; VENTILATOR NO
[2022-06-04 00:41] LABS: ABG PH 7.35 (7.37-7.43); PATIENT TEMP 36.6
--- NOTE | 2022-06-04 00:48 | ED Respiratory ---
General Chief Complaint: Respiratory Problems Stated Complaint: SOB PNEUMONIA Nursing Triage Note: PT ARRIVAL TO ER WITH COMPLAINT OF SOA X3 WEEKS. PT STATES THAT SHE WAS ADMITTED HERE LAST FRIDAY AND DISCHARGED FRIDAY AFTERNOON FOR PNEUMONIA. PT STATES THAT SHE HAS FELT LIKE IT HAS WORSENED SINCE THEN. PT DENIES OTHER COMPLAINTS. Source: patient History of Present Illness Date Seen by Provider: Jun 03, 2022 Time Seen by Provider: 22:50 Initial Comments PT ARRIVES VIA POV FROM HOME PT WAS SEEN HERE 05/22 AND THEN ADMITTED 05/30-05/31 FOR PNEUMONIA COVID TEST WAS NEGATIVE ON 05/22, AND NOT RE-TESTED WAS DISMISSED HOME ON AN UNKNOWN ANTIBIOTIC--SHE WAS GIVEN RX FOR AUGMENTIN AND ZITHROMAX ON 05/22/22 AND AUGMENTIN WAS CONTINUED AT DISMISSAL ON 05/31/22 WAS SUPPOSED TO FOLLOW UP TODAY, BUT SIMPLY DID NOT GO--STATES SHE "FORGOT ABOUT IT" THIS EVENING SHE ATE DINNER, AND THEN HAD A SHARP PAIN IN HER LEFT LOWER CHEST THAT LASTED 30 MINUTES AND WENT AWAY SHE HAS BEEN HAVING THIS PAIN SINCE SHE FIRST GOT SICK 3 WEEKS AGO. STATES SHE HAS CONTINUED TO HAVE SHORTNESS OF BREATH SINCE SHE STARTED GETTING SICK 3 WEEKS AGO. NO FEVER NO COUGH NO SWELLING IN LEGS/ FEET OR PAIN IN CALVES NO PALPITATIONS, NO DIZZINESS, NO SYNCOPE PT HAS NOT TAKEN ANYTHING FOR HER SYMPTOMS PT IS NOT COVID OR FLU VACCINATED. PT IS HIV + / AIDS--DENIES ANY MISSED DOSES OF HER MEDICATIONS. SEES AN INFECTIOUS DISEASE SPECIALIST FROM [place]-THE COMES TO [facility] HERE IN [place] TO SEE PTS DENIES ANY PRIOR RESPIRATORY PROBLEMS, OTHER THAN SOME MILD EXERCISE-RELATED ASTHMA SYMPTOMS WHEN SHE WAS A CHILD. DENIES ANY CARDIAC PROBLEMS SHE CONTINUES TO SMOKE AT LEAST 1 PPD SHE HAS EXTENSIVE HISTORY OF DRUG USE--MULTIPLE SUBSTANCES, INCLUDING METH SHE "OCCASIONALLY" DRINKS ALCOHOL PCP: [facility] Allergies and Home Medications Allergies Coded Allergies: No Known Drug Allergies (Unverified , 05/30/22) Patient Home Medication List Home Medication List Reviewed: Yes Amoxicillin/Potassium Clav (Amox Tr-K Clv 875-125 mg Tab) 875 Mg-125 Mg Tablet, 1 EACH PO BID Prescribed by: TENZIN FRANZ on 05/31/22 1147 Elviteg/Cindy/Emtric/Tenofo Ala (Genvoya Tablet) 150 Mg-150 Mg-200 Mg-10 Mg Tablet, 1 EA PO DAILY, (Reported) Entered as Reported by: LENNY JAMA on 11/16/17 1722 Naproxen (Naproxen) 500 Mg Tablet.dr, 500 MG PO BID Prescribed by: PINEDA HYDE on 06/04/22 0118 Review of Systems Review of Systems Constitutional: no symptoms reported; No chills, No diaphoresis, No fever EENTM: no symptoms reported Respiratory: see HPI, short of breath Cardiovascular: see HPI, chest pain Gastrointestinal: no symptoms reported; No abdominal pain, No diarrhea, No nausea, No vomiting Genitourinary: no symptoms reported Musculoskeletal: no symptoms reported Skin: no symptoms reported Psychiatric/Neurological: No Symptoms Reported Hematologic/Lymphatic: No Symptoms Reported Immunological/Allergic: see HPI, HIV/AIDS Past Vmkagqv-[id number]-[id number] Hx Patient Social History Tobacco Use?: Yes Tobacco type used: Cigarettes Smoking Status: Current Everyday Smoker Use of E-Cig and/or Vaping dev: No Substance use?: Yes Substance type: Amphetamines, Methamphetamine, Opiates/Opioids, Misuse of prescript meds Substance frequency: Daily Alcohol Use?: Yes Alcohol Frequency: Once in a while Pt feels they are or have been: No Immunizations Up To Date Tetanus Booster (TDap): Unknown PED Vaccines UTD: No Influenza Vaccine Up-to-Date: No; Not Current First/Initial COVID19 Vaccinat: DECLINED Second COVID19 Vaccination Óscar: DECLINED Third COVID19 Vaccination Date: DECLINED Seasonal Allergies Seasonal Allergies: No Past Medical History Surgery/Hospitalization HX: HIV Surgeries: No Respiratory: Yes (MILD EXERCISE-RELATED ASTHMA CHILD) Pneumonia Cardiac: No Neurological: Yes Headaches /Migraines Reproductive Disorders: Yes Female Reproductive Disorders: Denies Sexually Transmitted Disease: Yes HIV/AIDS: Yes Genitourinary: No Gastrointestinal: No Musculoskeletal: No Endocrine: No HEENT: No Cancer: No Psychosocial: Yes (POLYSUBSTANCE ABUSE) Anxiety Integumentary: Yes (CELLULITIS) Blood Disorders: No Adverse Reaction/Blood Tranf: No Family Medical History Patient reports no known family medical history. Physical Exam Vital Signs - First Documented Capillary Refill : Less Than 3 Seconds Height: 5'4.00" Weight: 146lbs. 3.0oz. [id number]; 26.09 BMI Method:Estimated General Appearance: WD/WN, no apparent distress, other (DOES NOT APPEAR ILL OR TO BE IN ANY DISCOMFORT OR DISTRESS. 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 nml as tested, no motor/sensory deficits, alert, normal mood/affect, oriented x 3 Skin: normal color, warm/dry; No rash Focused Exam Sepsis Stage: Ruled Out Reason for ruling out sepsis: DOES NOT MEET CRITERIA Possible Source: Pulmonary Lactate Level 06/03/22 23:03: Lactic Acid Level 1.51 Time of Focused Exam: 00:30 Respiratory: Normal Breath Sounds, No Accessory Muscle Use, No Respiratory Distress Cardiovascular: Regular Rate, Rhythm, No Murmur Capillary Refill: Less Than 3 Seconds Skin: normal color, warm/dry Lactic Acid Level Laboratory Tests Test 06/03/22 23:03 Lactic Acid Level 1.51 MMOL/L (0.50-2.00) Within 3hrs of presentation: Admin fluids, Admin ABX, Blood cultures prior to ABX's, Focus exam, Lactate level Progress/Results/Core Measures Suspected Sepsis SIRS Temperature: Pulse: 93 Respiratory Rate: 28 Laboratory Tests 06/03/22 22:52: White Blood Count 8.3 Blood Pressure 124 /90 Mean: 101 06/03/22 23:03: Lactic Acid Level 1.51 Laboratory Tests 06/03/22 22:52: Creatinine 0.84, INR Comment 1.1, Platelet Count 421H, Total Bilirubin 0.3 Results/Orders Lab Results Laboratory Tests Test 06/03/22 22:52 06/03/22 23:03 06/03/22 23:06 06/03/22 23:36 Range/Units White Blood Count 8.3 4.3-11.0 10^3/uL Red Blood Count 4.13 3.80-5.11 10^6/uL Hemoglobin 13.0 11.5-16.0 g/dL Hematocrit 39 35-52 % Mean Corpuscular Volume 94 80-99 fL Mean Corpuscular Hemoglobin 32 25-34 pg Mean Corpuscular Hemoglobin Concent 34 32-36 g/dL Red Cell Distribution Width 12.5 10.0-14.5 % Platelet Count 421 H 130-400 10^3/uL Mean Platelet Volume 9.1 9.0-12.2 fL Immature Granulocyte % (Auto) 0 % Neutrophils (%) (Auto) 70 42-75 % Lymphocytes (%) (Auto) 22 12-44 % Monocytes (%) (Auto) 5 0-12 % Eosinophils (%) (Auto) 2 0-10 % Basophils (%) (Auto) 1 0-10 % Neutrophils # (Auto) 5.8 1.8-7.8 10^3/uL Lymphocytes # (Auto) 1.9 1.0-4.0 10^3/uL Monocytes # (Auto) 0.4 0.0-1.0 10^3/uL Eosinophils # (Auto) 0.2 0.0-0.3 10^3/uL Basophils # (Auto) 0.1 0.0-0.1 10^3/uL Immature Granulocyte # (Auto) 0.0 0.0-0.1 10^3/uL Erythrocyte Sedimentation Rate 67 H 0-20 MM/HR Prothrombin Time 15.1 H 12.2-14.7 SEC INR Comment 1.1 0.8-1.4 Activated Partial Thromboplast Time 33 24-35 SEC D-Dimer 2.76 H 0.00-0.49 UG/ML Sodium Level 135 135-145 MMOL/L Potassium Level 4.0 3.6-5.0 MMOL/L Chloride Level 102 98-107 MMOL/L Carbon Dioxide Level 22 21-32 MMOL/L Anion Gap 11 5-14 MMOL/L Blood Urea Nitrogen 12 7-18 MG/DL Creatinine 0.84 0.60-1.30 MG/DL Estimat Glomerular Filtration Rate 87 BUN/Creatinine Ratio 14 Glucose Level 100 70-105 MG/DL Calcium Level 9.5 8.5-10.1 MG/DL Corrected Calcium 9.7 8.5-10.1 MG/DL Magnesium Level 1.8 1.6-2.4 MG/DL Total Bilirubin 0.3 0.1-1.0 MG/DL Aspartate Amino Transf (AST/SGOT) 20 5-34 U/L Alanine Aminotransferase (ALT/SGPT) 20 0-55 U/L Alkaline Phosphatase 59 40-136 U/L Total Creatine Kinase 65 29-168 U/L Creatine Kinase MB 1.5 <6.6 NG/ML Troponin I < 0.028 <0.028 NG/ML C-Reactive Protein High Sensitivity 3.30 H 0.00-0.50 MG/DL B-Type Natriuretic Peptide < 10.0 <100.0 PG/ML Total Protein 8.0 6.4-8.2 GM/DL Albumin 3.7 3.2-4.5 GM/DL Amylase Level 109 25-125 U/L Lipase 39 8-78 U/L Procalcitonin 0.07 <0.10 NG/ML Serum Test, Qualitative NEGATIVE NEGATIVE Lactic Acid Level 1.51 0.50-2.00 MMOL/L Influenza Type A (RT-PCR) Not Detected Not Detecte Influenza Type B (RT-PCR) Not Detected Not Detecte SARS-CoV-2 RNA (RT-PCR) Not Detected Not Detecte Blood Gas Puncture Site RT RAD Blood Gas Patient Temperature 36.6 Arterial Blood pH 7.35 L 7.37-7.43 Arterial Blood Partial Pressure CO2 52 H 35-45 MMHG Arterial Blood Partial Pressure O2 24 *L 79-93 MMHG Arterial Blood HCO3 28 H 23-27 MMOL/L Arterial Blood Total CO2 30.0 21.0-31.0 MMOL/L Arterial Blood Oxygen Saturation 37 L 94-100 % Arterial Blood Base Excess 3.2 H -2.5-2.5 MMOL/L Demarco Test YES-POS Blood Gas Ventilator Setting NO Blood Gas Inspired Oxygen ROOM AIR Test 06/03/22 23:49 Range/Units Urine Color YELLOW Urine Clarity CLEAR Urine pH 6.0 5-9 Urine Specific [place] 1.025 H 1.016-1.022 Urine Protein NEGATIVE NEGATIVE Urine Glucose (UA) NEGATIVE NEGATIVE Urine Ketones NEGATIVE NEGATIVE Urine Nitrite NEGATIVE NEGATIVE Urine Bilirubin NEGATIVE NEGATIVE Urine Urobilinogen 0.2 < = 1.0 MG/DL Urine Leukocyte Esterase NEGATIVE NEGATIVE Urine RBC (Auto) NEGATIVE NEGATIVE Urine RBC NONE /HPF Urine WBC RARE /HPF Urine Squamous Epithelial Cells 2-5 /HPF Urine Crystals NONE /LPF Urine Bacteria NEGATIVE /HPF Urine Casts NONE /LPF Urine Mucus SMALL H /LPF Urine Culture Indicated NO Urine Opiates Screen POSITIVE H NEGATIVE Urine Oxycodone Screen NEGATIVE NEGATIVE Urine Methadone Screen NEGATIVE NEGATIVE Urine Propoxyphene Screen NEGATIVE NEGATIVE Urine Barbiturates Screen NEGATIVE NEGATIVE Ur Tricyclic Antidepressants Screen NEGATIVE NEGATIVE Urine Phencyclidine Screen NEGATIVE NEGATIVE Urine Amphetamines Screen POSITIVE H NEGATIVE Urine Methamphetamines Screen POSITIVE H NEGATIVE Urine Benzodiazepines Screen NEGATIVE NEGATIVE Urine Cocaine Screen NEGATIVE NEGATIVE Urine Cannabinoids Screen NEGATIVE NEGATIVE Micro Results Microbiology 06/03/22 Urine Culture - Final, Complete NO GROWTH 06/03/22 Blood Culture - Preliminary, Resulted No growth 06/03/22 Blood Culture - Preliminary, Resulted No growth My Orders Orders - PINEDA HYDE DO Ed Iv/Invasive Line Start (06/03/22 22:50) Ekg Tracing (06/03/22 22:50) O2 (06/03/22 22:50) Monitor-Rhythm Ecg Trace Only (06/03/22 22:50) Arterial Blood Gas (06/03/22 22:50) Bnp Anahi (06/03/22 22:50) Cbc With Automated Diff (06/03/22 22:50) Comprehensive Metabolic Panel (06/03/22 22:50) Creatine Kinase (06/03/22 22:50) Creatine Kinase Mb (06/03/22 22:50) Hs C Reactive Protein (06/03/22 22:50) Fibrin Degradation Products (06/03/22 22:50) Drug Screen Stat (Urine) (06/03/22 22:50) Lactic Acid Analyzer (06/03/22 22:50) Magnesium (06/03/22 22:50) Procalcitonin (Pct) (06/03/22 22:50) Erythrocyte Sedimentation Rate (06/03/22 22:50) Troponin I [place] (06/03/22 22:50) Blood Culture (06/03/22 22:50) Urinalysis (06/03/22 22:50) Urine Culture (06/03/22 22:50) Protime With Inr (06/03/22 22:50) Partial Thromboplastin Time (06/03/22 22:50) Ed Iv/Invasive Line Start (06/03/22 22:50) Ed Iv/Invasive Line Start (06/03/22 22:50) Vital Signs Adult Sepsis Patie Q15M (06/03/22 22:50) O2 (06/03/22 22:50) Remove Rings In Anticipation O (06/03/22 22:50) Cefepime Injection (Maxipime Injection) (06/03/22 23:00) Hcg,Qualitative Serum (10/3/22 22:50) Ed Iv/Invasive Line Start (06/03/22 22:50) Lactated Ringers (Lr 1000 Ml Iv Solution (06/03/22 23:00) Covid 19 Inhouse Test (06/03/22 23:01) Influenza A And B By Pcr (06/03/22 23:01) Isolation Central Supply Req (06/03/22 23:01) Amylase (06/03/22 23:04) Lipase (06/03/22 23:04) Ct Angio Chest W (06/03/22 23:31) Iohexol Injection (Omnipaque 350 Mg/Ml 1 (06/03/22 23:45) Ns (Ivpb) (Sodium Chloride 0.9% Ivpb Bag (06/03/22 23:45) Received Contrast (Hold Metformin- Contr (06/03/22 23:45) Arterial Blood Draw - Obtain (06/04/22 ) Chest Pa/Lat (2 View) (06/04/22 ) Ketorolac Injection (Toradol Injection) (06/04/22 01:15) Iv Push Staining Machine Operator Ed (06/03/22 ) Medications Given in ED Vital Signs/I&O 06/03/22 06/03/22 06/04/22 22:36 22:36 01:24 Temp 36.6 Pulse 93 82 Resp 28 16 B/P (MAP) 124/90 (101) 108/85 Pulse Ox 98 99 O2 Delivery Room Air Room Air Room Air Capillary Refill : Less Than 3 Seconds Blood Pressure Mean: 101 Progress Note : Progress Note PPE WORN COVID AND FLU TESTING DONE SEPSIS PROTOCOL INITIATED NO COUGH AT ANY TIME NO DYSPNEA NO HYPOXIA NO FEVER AT ANY TIME DURING ER STAY VITALS STABLE ECG Initial ECG Impression Date: Jun 03, 2022 Initial ECG Impression Time: 23:02 Initial ECG Rate: 84 Initial ECG Rhythm: Normal Sinus Initial ECG Impression: Normal Diagnostic Imaging Comments CXR--ATELECTASIS/INFILTRATE LLL, PENDING RADIOLOGIST REVIEW CT CHEST ANGIOGRAM--PER [facility] VIA FAX AT [phone] -LLL SUBSEGMENTAL ATELECTASIS -MILD TO MODERATE LEFT EFFUSION -NO P.E. Reviewed: Reviewed by Me Departure Impression Primary Impression: LLL pneumonia Additional Impressions: Pleural effusion on left HIV disease Methamphetamine use Disposition: HOME, SELF-CARE Condition: Stable Departure-Patient Inst. Decision time for Depature: 01:15 Referrals: [facility] (PCP/Family) Primary Care Physician Patient Instructions: Pneumonia, Adult ED Add. Discharge Instructions: CONTINUE YOUR ANTIBIOTICS PRESCRIBED LOTS OF CLEAR LIQUIDS TAKE TYLENOL NEEDED FOR PAIN OR FEVER NO DRUGS FOLLOW UP WITH [facility] IN 2 DAYS FOR FURTHER CARE--CALL IN THE MORNING TO SCHEDULE APPOINTMENT. All discharge instructions reviewed with patient and/or family. Voiced understanding. Scripts Naproxen (Naproxen) 500 Mg Tablet. 500 MG PO BID, #20 TAB Prov: PINEDA HYDE DO 06/04/22 PINEDA HYDE DO Jun 04, 2022 00:47
[2022-06-04] MEDS ORDERED: KETOROLAC 30 MG/ML VIAL IVP ONE (01:15)
[2022-06-04] MEDS ORDERED: NAPR500T8 PO (01:18)
[2022-06-04 01:24] VITALS: BP 108/85
--- NOTE | 2022-06-04 07:43 | Diagnostic Imaging Report ---
Indication: Chest pain. COMPARISON: 05/30/2022 FINDINGS: Frontal and lateral radiographic views of the chest were obtained and show asymmetric left basilar consolidative airspace disease with probable small effusion. Right lung remains clear. No pneumothorax is seen on either side. Cardiac silhouette and pulmonary vasculature are within normal limits. IMPRESSION: 1. Small left basilar effusion with associated left basilar pneumonia. Follow-up to resolution is advised. Dictated by: Dictated on workstation # [id number]
--- NOTE | 2022-06-04 07:45 | Diagnostic Imaging Report ---
PROCEDURE: CT angiography of the chest with contrast. TECHNIQUE: Multiple contiguous axial images were obtained through the chest after uneventful bolus administration of intravenous contrast. 3D reconstructed CTA MIP acquisitions were also performed. Auto Exposure Controls were utilized during the CT exam to meet ALARA standards for radiation dose reduction. INDICATION: Chest pain. COMPARISON: 05/30/2022 FINDINGS: No abnormal intraluminal filling defects are seen to the 1st subsegmental division of the pulmonary arteries. Thoracic aorta is partially obscured due to metallic beam hardening artifact within the SVC, but otherwise appears normal in course and caliber. By NASCET criteria, there is no focal significant stenosis. There is no evidence of dissection or aneurysm. Heart size is within normal limits. There is no large pericardial effusion. No pathologically enlarged or morphologically abnormal adenopathy is seen within the mediastinum, [place], nor axilla. Evaluation lung veras demonstrates slight interval increase in left mild to moderate effusion with associated patchy and confluent airspace disease in the inferior lingula of the left upper lobe and base of the left lower lobe. Right lung remains clear. There is minimal atelectasis the right middle lobe. No large effusion is seen on the right. No pneumothorax is identified on either side. Aerated portions the lungs show no suspicious pulmonary parenchymal masses. Osseous structures show no acute abnormalities. No lytic or blastic bony lesions are seen. Included portions the upper abdomen show large amount of air and stool within the included portions of the colon. IMPRESSION: 1. No acute pulmonary embolus. 2. Slight interval increase in size of left mild to moderate effusion with associated pneumonia in the lingula of the left upper lobe and base of the left lower lobe. 3. Large amount of colonic air and stool. Please correlate for constipation. Dictated by: Dictated on workstation # [id number]
== END 2022-06-04 01:27 | disposition home or self-care (01) ==
LOC: EDUNIT# 22:26 → ER 22:28
DX: J18.1 Lobar pneumonia, unspecified organism (principal); F17.210 Nicotine dependence, cigarettes, uncomplicated; Z20.822 Contact with and (suspected) exposure to COVID-19; Z28.310 Unvaccinated for COVID-19
CPT/HCPCS: 36415; 36600; 71046; 71275; 80053; 80306; 81000; 82150; 82550; 82553; 82805; 83605; 83690; 83735; 83880; 84145; 84484; 84703; 85025; 85379; 85610; 85652; 85730; 86141; 87040; 87088; 87636; 93005; 93041; 96374; 96375